=== PATIENT | male | born 1970 | race Caucasian/White ===

== ENCOUNTER 2021-07-11 19:25 | Emergency (ER) | payer OTHER, SELFPAY ==
--- NOTE | ~2021-07-11 | CT_ITS ---
EXAMINATION: CT ABDOMEN AND PELVIS WITHOUT CONTRAST CLINICAL INFORMATION: Left flank pain. Question ureteropelvic junction stone COMPARISON: 11/18/2013 TECHNIQUE: Multidetector volumetric imaging was performed from the lung bases through the pubic symphysis. Sagittal and coronal reformatted images were obtained on the technologist workstation. This CT examination was performed using dose optimization techniques as appropriate, variously including the following: *Automated exposure control *Adjustment of mA and/or kV according to patient size (this includes techniques or standardized protocols for targeted exams where dose is matched to indication/reason for exam; i.e. extremities or head) *Use of iterative reconstruction technique DL [id number] FINDINGS: The lack of intravenous contrast limits evaluation of the solid visceral organs including the liver, spleen, pancreas, and kidneys. LUNG BASES: The visualized lung bases are unremarkable. LIVER, GALLBLADDER, AND BILIARY TREE: Limited non-contrast evaluation is normal. No gross focal hepatic lesion. Normal liver size and contour. No gross biliary ductal dilation. Dependent gallstones. No gallbladder wall thickening or pericholecystic fluid. No biliary ductal dilatation. PANCREAS: Mild pancreatic atrophy. SPLEEN: Limited non-contrast evaluation is normal. ADRENAL GLANDS: Normal; no adrenal mass. KIDNEYS AND URETERS: Limited non-contrast evaluation is normal. No hydronephrosis, hydroureter, or calculi seen. No perinephric stranding. GASTROINTESTINAL TRACT: Small bowel and colon are non-dilated. No bowel wall thickening. Diffuse diverticulosis. No pericolonic inflammatory changes to suggest colitis or diverticulitis. ABDOMINAL WALL: No hernia seen. LYMPH NODES: No pathologically enlarged lymph nodes in the abdomen or pelvis. VASCULAR: Normal caliber abdominal aorta. BLADDER: No radiopaque urolithiasis. PELVIC VISCERA: Unremarkable. OSSEOUS STRUCTURES: No acute or suspicious osseous abnormalities. Severe osteoarthritis of the bilateral hips. Severe lower lumbar facet arthropathy. CT/CT abdomen pelvis wo con IMPRESSION: No acute CT findings. No etiology for left flank pain identified
[2021-07-11 20:51] VITALS: BP 119/74; PULSE 69; RESP 18; TEMP 36.9; O2SAT 98; BMI 34.2
[2021-07-11 21:09] LABS: Appearance Urine CLEAR; Color Urine YELLOW; Glucose Urine UA NEG (NEG); Leukocyte Esterase Urine TRACE (NEG); Nitrite Urine NEG (NEG); Specific Gravity - Urine 1.025 (1.005-1.025); UACC Culture Trigger YES; Urine Blood NEG (NEG); Urine Ketones NEG (NEG); Urine Protein NEG (NEG-TRACE)
[2021-07-11 21:20] LABS: Bacteria Urine 1+ /LPF; Squamous Epithelial Cell Urine 1+ /LPF; UACC CULT YES
--- NOTE | 2021-07-11 21:41 | ED.ABDPAIN ---
HPI - Abdominal Pain General Chief Complaint: Abdominal Pain Stated Complaint: Flank pain Time Seen by Provider: 07/11/21 21:41 Source: patient Mode of arrival: ambulatory Limitations: no limitations History of Present Illness HPI narrative: Patient been complaining of left flank pain for last 3 days without any dysuria or hematuria no frequency had some chills and subjective fever no history of kidney stone in the past no abdominal pain , patient feels burning sensation on the left flank area Related Data Previous Rx's Medication Instructions Recorded ciprofloxacin HCl 500 mg tablet 500 mg PO BID #14 tab 07/11/21 (Cipro) Allergies Allergy/AdvReac Type Severity Reaction Status Date / Time No Known Allergies Allergy Verified 07/11/21 20:51 Review of Systems Review of Systems Yes all other systems are reviewed and are negative Physical Exam Vital Signs: Vital Signs: Last Vital Signs Temp 98.4 F 07/11/21 20:51 Pulse 69 07/11/21 20:51 Resp 18 07/11/21 20:51 BP 119/74 07/11/21 20:51 Pulse Ox 98 07/11/21 20:51 Body Mass Index 34.2 Appearance: Alert. Oriented X3. No acute distress. Eyes: No pallor or icterus ENT: Pharynx normal. Oral Mucosa moist Neck: Normal inspection. Neck supple. CVS: Normal heart rate and rhythm. Pulses normal. Respiratory: No respiratory distress. Equal air entry bilateral, no wheezing/rales/rhonchi Abdomen: Soft and nontender. Bowel sounds are present, no mass palpable, mild left CVA tenderness Skin: Skin warm and dry. Normal skin color. Normal skin turgor. Extremities: No lower extremity edema. No calf tenderness Neuro: Oriented X 3. MDM - Abdominal Pain MDM Narrative Medical decision making narrative: Patient left flank pain CT scan negative for any kidney stone showed only mild UTI will discharge patient home on Cipro Lab Data Attestation: I reviewed the patient's lab results. Labs: Lab Results 07/11/21 Range/Units 20:58 Urine Color YELLOW Urine Appearance CLEAR Urine pH 6.0 (5.0-8.0) Ur Specific [place] 1.025 (1.005-1.025) Urine Protein NEG (NEG-TRACE) MG/DL Urine Glucose (UA) NEG (NEG) MG/DL Urine Ketones NEG (NEG) MG/DL Urine Blood NEG (NEG) Urine Nitrite NEG (NEG) Ur Leukocyte Esterase TRACE H (NEG) Urine RBC 1-4 (0) /HPF Urine WBC 5-9 H (0-4) /HPF Ur Squamous Epith Cells 1+ /LPF Urine Bacteria 1+ /LPF Discharge Plan Discharge Clinical Impression: UTI (urinary tract infection) Qualifiers: Urinary tract infection type: acute cystitis Hematuria presence: without hematuria Qualified Code(s): N30.00 - Acute cystitis without hematuria Patient Disposition: Home, Self-Care Instructions: Urinary Tract Infection in Men (ED) Additional Instructions: Drink plenty of fluids Take antibiotic as prescribed Follow-up with your PCP if not better Prescriptions: New ciprofloxacin HCl [Cipro] 500 mg tablet 500 mg PO BID Qty: 14 RF: 0 PMFSH Social History Social History Advance Directives: No Advance Directives Information Provided: Yes
[2021-07-11] MEDS: levoFLOXacin 500 MG TABLET PO (22:43)
[2021-07-11 23:22] VITALS: BP 144/89; PULSE 53; RESP 17; TEMP 36.6; O2SAT 97
== END 2021-07-11 23:25 | disposition home or self-care (01) ==
PROVIDERS: Emergency Provider Internal Medicine
DX: N30.00 Acute cystitis without hematuria (principal); R10.9 Unspecified abdominal pain; Z79.899 Other long term (current) drug therapy
CPT/HCPCS: 74176; 81001; 87086; 99284

== ENCOUNTER 2022-06-11 22:21 | Emergency (ER) | payer OTHER, SELFPAY ==
--- NOTE | ~2022-06-11 | US_ITS ---
EXAMINATION: US SCROTUM CLINICAL INFORMATION: Pain and swelling. COMPARISON: None TECHNIQUE: A sonogram of the scrotum was performed assessing amaya-scale appearance and color Doppler flow. Spectral Doppler analysis of the arterial and venous flow were performed in the testes bilaterally. FINDINGS: RIGHT: Right testicle measures 4.3 x 2.5 x 2.9 cm, volume 16.7 mL. No focal testicular parenchymal lesions are visualized. Spectral Doppler analysis of the arterial and venous flow is normal in the right testis. Right epididymal head is normal in size. No right hydrocele or varicocele is seen. Right epididymal Doppler flow is normal. LEFT: Left testicle measures 4.2 x 2.6 x 2.8 cm, volume 16.1 mL. No focal testicular parenchymal lesions are visualized. Spectral Doppler analysis of the arterial and venous flow is normal in the left testis. Left epididymal head is normal in size. No left hydrocele or varicocele is seen. Left epididymal Doppler flow is normal. Mild left scrotal skin thickening. US/US scrotum doppler IMPRESSION: Normal appearance of the testicles. No torsion or mass.
--- NOTE | ~2022-06-11 | US_ITS ---
EXAMINATION: US SCROTUM CLINICAL INFORMATION: Pain and swelling. COMPARISON: None TECHNIQUE: A sonogram of the scrotum was performed assessing amaya-scale appearance and color Doppler flow. Spectral Doppler analysis of the arterial and venous flow were performed in the testes bilaterally. FINDINGS: RIGHT: Right testicle measures 4.3 x 2.5 x 2.9 cm, volume 16.7 mL. No focal testicular parenchymal lesions are visualized. Spectral Doppler analysis of the arterial and venous flow is normal in the right testis. Right epididymal head is normal in size. No right hydrocele or varicocele is seen. Right epididymal Doppler flow is normal. LEFT: Left testicle measures 4.2 x 2.6 x 2.8 cm, volume 16.1 mL. No focal testicular parenchymal lesions are visualized. Spectral Doppler analysis of the arterial and venous flow is normal in the left testis. Left epididymal head is normal in size. No left hydrocele or varicocele is seen. Left epididymal Doppler flow is normal. Mild left scrotal skin thickening. US/US scrotum IMPRESSION: Normal appearance of the testicles. No torsion or mass.
[2022-06-11 22:27] VITALS: BP 149/79; PULSE 82; RESP 16; TEMP 36.1; O2SAT 99; BMI 34.2
[2022-06-11 22:45] LABS: MANUAL DIFF FLAG NO
[2022-06-11 22:48] LABS: Basophils Absolute Auto 0.1 X10*3/uL (0.0-0.2); Basophils Percent Auto 0.4 % (0-2); Eosinophils Absolute Auto 0.2 X10*3/uL (0.0-0.4); Hematocrit 38.8 % (42.0-52.0); Hemoglobin 12.9 g/dl (14.0-18.0); Imm Gran Abs Auto 0.04 X10*3/uL (0.00-0.03); Imm Gran Pct Auto 0.3 % (0.0-0.4); Mean Corpuscular HGB Conc 33.2 g/dl (31.0-36.0); Mean Corpuscular Hemoglobin 30.3 pg (27.0-33.0); Mean Corpuscular Volume 91.1 fL (80.0-98.0); Mean Platelet Volume 11.3 fL (9.4-12.4); Monocytes Absolute Auto 1.1 X10*3/uL (0.1-1.2); Monocytes Percent Auto 7.5 % (2-11); Neutrophils Absolute Auto 11.1 x10*3/uL (2.0-8.3); Neutrophils Percent Auto 76.8 % (45-73); Platelet Count 217 X10*3/uL (160-400); Red Blood Count 4.26 X10*6/uL (4.60-5.80); Red Cell Distribution Width 14.6 % (11.0-16.0); White Blood Count 14.5 X10*3/uL (4.8-10.8)
[2022-06-11 22:56] LABS: Appearance Urine CLEAR; Color Urine YELLOW; Glucose Urine UA NEG (NEG); Leukocyte Esterase Urine NEG (NEG); Nitrite Urine NEG (NEG); PH 6.5 (5.0-8.0); Specific Gravity - Urine <= 1.005 (1.005-1.025); Urine Blood NEG (NEG); Urine Ketones NEG (NEG); Urine Protein NEG (NEG-TRACE)
[2022-06-11 23:18] LABS: Alanine Aminotransferase 10 U/L (0-40); Albumin Level 4.6 g/dL (3.5-5.0); Alkaline Phosphatase 86 U/L (39-117); Anion Gap 15 (12-20); Aspartate Amino Transferase 18 U/L (5-37); Bilirubin Total 1.6 mg/dL (0.0-1.0); Blood Urea Nitrogen 12 mg/dL (9-16); Calcium 9.2 mg/dL (8.4-10.2); Carbon Dioxide 25 mmol/L (22-29); Chloride 103 mmol/L (96-108); Creatinine Clr Calc Pharmacy 160.6; Estimated Glomerular Filt Rate > 60; Glucose Random 89 mg/dL (60-115); Potassium 3.5 mmol/L (3.3-5.1); Sodium 139 mmol/L (135-145); Total Protein 7.4 g/dL (6.5-8.0)
[2022-06-12] VITALS: BP 146/75; PULSE 76; RESP 18; O2SAT 100
--- NOTE | 2022-06-12 00:28 | ED_ITS ---
HPI - Male Genitourinary General Chief complaint: Urogenital-Male Stated complaint: scrotum Swollen Time Seen by Provider: 06/12/22 00:28 Source: patient Mode of arrival: ambulatory Limitations: no limitations History of Present Illness HPI Narrative: 51 yo male who has a hx of genital warts that he never got treated notes for the past day his testicles are more swollen and red denies trauma/sexual partners. No fevers/vomiting abdominal pain. MD Complaint: testicle swelling Onset (ago): day(s) (1) Duration: constant Location: right testicle and left testicle Severity: mild Quality: dull Relieving factors: none Exacerbating factors: palpation Context: other (thinks due to heat and warts skin might be inflammed) Associated symptoms: Reports denies other symptoms Related Data Previous Rx's Medication Instructions Recorded ciprofloxacin HCl 500 mg tablet 500 mg PO BID #14 tabs 07/11/21 (Cipro) cephalexin 500 mg capsule 500 mg PO TID 7 days #21 caps 06/12/22 clotrimazole 1 % topical ointment 1 appl topical BID 2 weeks #56.7 06/12/22 grams doxycycline monohydrate 100 mg 100 mg PO BID 7 days #14 tabs 06/12/22 tablet Allergies Allergy/AdvReac Type Severity Reaction Status Date / Time No Known Allergies Allergy Verified 07/11/21 20:51 Review of Systems Review of Systems: Constitutional : No Fever, No Chills ENT/Mouth : No sore throat, No Rhinorrhea Eyes: No Eye Pain, No Swelling, No Redness Cardiovascular : No Chest Pain, No SOB Respiratory : No Cough, No Sputum Gastrointestinal : No Nausea, No Vomiting, No Diarrhea, No abdominal Pain Genitourinary : No Dysuria, No Hematuria, no urinary retention, pos scrotal swelling Musculoskeletal : No joint pain, No Myalgias, No Joint Swelling Skin : pos Skin Lesions, positive skin rash Neuro : No Weakness, No Numbness, No Headache Psych : No Anxiety, No Depression Heme/Lymph: No Bruising, No Bleeding,No Lymphadenopathy Endocrine : No Polyuria, No Polydipsia All other systems reviewed and are negative [facility] Past Medical History Attestation statement: The following information was validated with the patient. Medical History Genital warts Social History Social History Alcohol intake: current Alcohol intake frequency: a few times a week Alcohol type: beer Patient Tobacco Use Status: Never used Tobacco Use of substances other than those prescribed or required for medical reasons: Yes Substance Use Type: Marijuana Substance Use Frequency: Weekly Physical Exam Vital Signs: Vital Signs: Last Vital Signs Temp 96.9 F 06/11/22 22:27 Pulse 76 06/12/22 00:00 Resp 18 06/12/22 00:00 BP 146/75 H 06/12/22 00:00 Pulse Ox 100 06/12/22 00:00 O2 Del Method 06/12/22 00:00 BMI result Body Mass Index 34.2 Appearance: Alert. Oriented X3. No acute distress. Eyes: Pupils equal, round and reactive to light. ENT: Pharynx normal. Neck: Normal inspection. Neck supple. CVS: Normal heart rate and rhythm. Pulses normal. Respiratory: No respiratory distress. Breath sounds normal. Abdomen: Soft and nontender. : under scrotum and on scrotum in groin as well fungating papillomas, mild erythema no abscess or fluctuance noted, scrotum has boggy edema noted but no erythema itself not hot touch touch, area is moist Skin: Skin warm and dry. Normal skin color. Normal skin turgor. Extremities: No lower extremity edema. No calf ttp Neuro: Oriented X 3. No motor deficit. No sensory deficit. Course Course Course Narrative: negative US stable for DC - mild WBC count afebrile no crepitus no signs of dee's he is not a diabetic MDM - Male Genitourinary MDM Narrative Medical decision making narrative: 51 yo male with hx of genital warts here with scrotal swelling and redness likely due to moist environment from the warts themselves. Will obtain labs, US and anticipate starting on oral cephalexin/abx, topical anti fungal and mupirocin. Dispo per results and findings. Lab Data Result diagrams: 06/11/22 22:36 06/11/22 22:36 Labs: Lab Results 06/11/22 06/11/22 06/11/22 Range/Units 22:36 22:36 22:38 WBC 14.5 H (4.8-10.8) X10*3/uL RBC 4.26 L (4.60-5.80) X10*6/uL Hgb 12.9 L (14.0-18.0) g/dl Hct 38.8 L (42.0-52.0) % MCV 91.1 (80.0-98.0) fL MCH 30.3 (27.0-33.0) pg MCHC 33.2 (31.0-36.0) g/dl RDW 14.6 (11.0-16.0) % Plt Count 217 (160-400) X10*3/uL MPV 11.3 (9.4-12.4) fL Immature Gran % (Auto) 0.3 (0.0-0.4) % Neut % (Auto) 76.8 H (45-73) % Lymph % (Auto) 14.0 L (20-40) % Jones % (Auto) 7.5 (2-11) % Eos % (Auto) 1.0 (0-4) % Baso % (Auto) 0.4 (0-2) % Lymph # (Auto) 2.0 (1.2-4.9) X10*3/uL Jones # (Auto) 1.1 (0.1-1.2) X10*3/uL Eos # (Auto) 0.2 (0.0-0.4) X10*3/uL Baso # (Auto) 0.1 (0.0-0.2) X10*3/uL Abs Immat Gran (auto) 0.04 H (0.00-0.03) X10*3/uL Absolute Neuts (auto) 11.1 H (2.0-8.3) x10*3/uL Absolute Nucleated RBC 0.000 (0.0-0.012) X10*3/uL Nucleated RBC % (auto) 0.0 (0.0-0.2) /100WBC Sodium 139 (135-145) mmol/L Potassium 3.5 (3.3-5.1) mmol/L Chloride 103 (96-108) mmol/L Carbon Dioxide 25 (22-29) mmol/L Anion Gap 15 (12-20) BUN 12 (9-16) mg/dL Creatinine 0.74 (0.5-1.4) mg/dL Estim Creat Clear Calc 160.6 Estimated GFR > 60 Random Glucose 89 (60-115) mg/dL Calcium 9.2 (8.4-10.2) mg/dL Total Bilirubin 1.6 H (0.0-1.0) mg/dL AST 18 (5-37) U/L ALT 10 (0-40) U/L Alkaline Phosphatase 86 (39-117) U/L Total Protein 7.4 (6.5-8.0) g/dL Albumin 4.6 (3.5-5.0) g/dL Urine Color YELLOW Urine Appearance CLEAR Urine pH 6.5 (5.0-8.0) Ur Specific [place] <= 1.005 (1.005-1.025) Urine Protein NEG (NEG-TRACE) MG/DL Urine Glucose (UA) NEG (NEG) MG/DL Urine Ketones NEG (NEG) MG/DL Urine Blood NEG (NEG) Urine Nitrite NEG (NEG) Ur Leukocyte Esterase NEG (NEG) Discharge Plan Discharge Clinical Impression: Cellulitis of scrotum Patient Disposition: Home, Self-Care Instructions: Cellulitis (ED) Additional Instructions: return to ED for any worsening symptoms or concerns YOU WILL NEED TO SEE A PRIMARY CARE DOCTOR AND EITHER BE MANAGED BY DERMATOLOGY OR THEM FOR YOUR LESIONS FINDINGS: RIGHT: Right testicle measures 4.3 x 2.5 x 2.9 cm, volume 16.7 mL. No focal testicular parenchymal lesions are visualized. Spectral Doppler analysis of the arterial and venous flow is normal in the right testis. Right epididymal head is normal in size. No right hydrocele or varicocele is seen. Right epididymal Doppler flow is normal. LEFT: Left testicle measures 4.2 x 2.6 x 2.8 cm, volume 16.1 mL. No focal testicular parenchymal lesions are visualized. Spectral Doppler analysis of the arterial and venous flow is normal in the left testis. Left epididymal head is normal in size. No left hydrocele or varicocele is seen. Left epididymal Doppler flow is normal. Mild left scrotal skin thickening. US/US scrotum doppler IMPRESSION: Normal appearance of the testicles. No torsion or mass. Prescriptions: New cephalexin 500 mg capsule 500 mg PO TID 7 Days Qty: 21 0RF doxycycline monohydrate 100 mg tablet 100 mg PO BID 7 Days Qty: 14 0RF clotrimazole 1 % ointment 1 appl topical BID 14 Days Qty: 56.7 0RF No Action ciprofloxacin HCl [Cipro] 500 mg tablet 500 mg PO BID Qty: 14 0RF Stand Alone Forms: Work/School Release
[2022-06-12] MEDS: cephALEXin 500 MG CAPSULE PO (01:39)
--- NOTE | 2022-06-12 01:40 | PC.NURSE ---
pt returned from u/s, medicated per provider order.
== END 2022-06-12 02:34 | disposition home or self-care (01) ==
PROVIDERS: Emergency Provider Emergency Medicine
DX: N49.2 Inflammatory disorders of scrotum (principal); N50.82 Scrotal pain
CPT/HCPCS: 36415; 76870; 80053; 81003; 85025; 93975; 99284

== ENCOUNTER 2022-11-26 14:55 | Emergency (ER) | payer OTHER, SELFPAY ==
--- NOTE | ~2022-11-26 | CT_ITS ---
EXAMINATION: CT ABDOMEN AND PELVIS WITHOUT CONTRAST CLINICAL INFORMATION: Left-sided flank pain COMPARISON: CT abdomen pelvis 07/11/2021 TECHNIQUE: Multidetector volumetric imaging was performed from the superior aspect of the liver through the pubic symphysis. Sagittal and coronal reformatted images were obtained on the technologist's workstation. This CT examination was performed using dose optimization techniques as appropriate, variously including the following: *Automated exposure control *Adjustment of mA and/or kV according to patient size (this includes techniques or standardized protocols for targeted exams where dose is matched to indication/reason for exam; i.e. extremities or head) *Use of iterative reconstruction technique DLP: 943 mGy-cm FINDINGS: LUNG BASES: The visualized lung bases are unremarkable. LIVER, GALLBLADDER, AND BILIARY TREE: The liver is normal in size, shape, and attenuation. No focal hepatic lesion or biliary ductal dilatation is present. The gallbladder contains multiple large gallstones, with the largest measuring 2 cm. Gallbladder is otherwise unremarkable with no evidence of gallbladder wall thickening, or obvious pericholecystic inflammatory changes. PANCREAS: Unremarkable. SPLEEN: Unremarkable. ADRENAL GLANDS: Unremarkable. KIDNEYS AND URETERS: The kidneys are normal in size, shape, and attenuation. No hydronephrosis, hydroureter, or calculi seen. No perinephric stranding. BLADDER: Unremarkable. GASTROINTESTINAL TRACT: The small and large bowel are unremarkable aside from colonic diverticula without diverticulitis. The appendix is unremarkable. ABDOMINAL WALL: No significant hernia is appreciated. Tiny periumbilical hernia contains only fat. LYMPH NODES: No retroperitoneal lymphadenopathy. VASCULAR: Unremarkable. PELVIC VISCERA: The prostate and seminal vesicles are unremarkable. OSSEOUS STRUCTURES: Mild degenerative changes present throughout the spine. No bony destructive lesions CT/CT abdomen pelvis wo IV con IMPRESSION: 1. A cause for the patient's left-sided flank pain has not been found. 2. Incidental note made of cholelithiasis without cholecystitis, colonic diverticulosis without diverticulitis and degenerative changes in the spine. Fleischner guidelines were followed.
[2022-11-26 15:37] VITALS: BP 143/79; PULSE 70; RESP 18; TEMP 36.4; O2SAT 99; BMI 33.0
--- NOTE | 2022-11-26 15:37 | ED_ITS ---
HPI - Abdominal Pain General Chief Complaint: Urogenital-Male <JIM Rosario - Last Filed: 11/26/22 15:40> Stated Complaint: L kidney pain <JIM Rosario - Last Filed: 11/26/22 15:40> Time Seen by Provider: 11/26/22 19:19 <JIM Rosario - Last Filed: 11/26/22 15:40> Source: patient <JIM Quintana - Last Filed: 11/26/22 21:31> Mode of arrival: ambulatory <JIM Quintana - Last Filed: 11/26/22 21:31> Limitations: no limitations <JIM Quintana Last Filed: 11/26/22 21:31> History of Present Illness HPI narrative: This is a 52-year-old male no significant medical history presenting with left-sided flank pain for the past 2-3 days denies trauma to the area. Patient tells me he feels a soreness to his left flank, does not radiate anywhere else, he tells me he feels like at the bruise. Patient tells me certain movements and palpation make pain worse. No history of kidney stones or pyelonephritis. He tells me last time he had something like this before he had an uncomplicated urinary tract infection. Patient denies nausea, vomiting, abdominal pain, UTI symptoms, chest pain, shortness of breath, headache, vision changes, dizziness. <JIM Quintana - Last Filed: 11/26/22 21:31> Related Data Home Medications: Previous Rx's Medication Instructions Recorded ciprofloxacin HCl 500 mg tablet 500 mg PO BID #14 tabs 07/11/21 (Cipro) cephalexin 500 mg capsule 500 mg PO TID 7 days #21 caps 06/12/22 clotrimazole 1 % topical ointment 1 appl topical BID 2 weeks #56.7 06/12/22 grams doxycycline monohydrate 100 mg 100 mg PO BID 7 days #14 tabs 06/12/22 tablet cyclobenzaprine 10 mg tablet 10 mg PO BEDTIME PRN muscle spasm 11/26/22 #7 tabs ketorolac 10 mg tablet 10 mg PO TID PRN pain 5 days #15 11/26/22 tabs lidocaine 5 % topical patch 1 patch topical DAILY PRN pain #15 11/26/22 ea <JIM Rosario - Last Filed: 11/26/22 15:40> Allergies/Adverse Reactions: Allergies Allergy/AdvReac Type Severity Reaction Status Date / Time No Known Allergies Allergy Verified 07/11/21 20:51 <JIM Rosario - Last Filed: 11/26/22 15:40> Review of Systems Review of Systems Constitutional : No Weight loss, No Fever, No Chills, No Fatigue, No Malaise ENT/Mouth : No sore throat, No Rhinorrhea Eyes: No Eye Pain, No Swelling, No Redness Cardiovascular : No Chest Pain, No SOB, No Dyspnea on Exertion, No Orthopnea, No Edema, No Palpitations Respiratory : No Cough, No Sputum, No Wheezing Gastrointestinal : No Nausea, No Vomiting, No Diarrhea, No Constipation, No abdominal Pain, No Hematochezia, No Melena Genitourinary : No Dysuria, No Urinary Frequency, No Hematuria, Musculoskeletal : No joint pain, No Myalgias, No Joint Swelling, + left flank pain Skin : No Skin Lesions, No rash Neuro : No Weakness, No Numbness, No Dizziness, No Headache Psych : No Anxiety/Panic, No Depression All other systems reviewed and are negative <JIM Quintana - Last Filed: 11/26/22 21:31> Yes all other systems are reviewed and are negative <JIM Quintana - Last Filed: 11/26/22 21:31> PMFSH Past Medical History Attestation statement: The following information was validated with the patient. <JIM Quintana - Last Filed: 11/26/22 21:31> Source: old records reviewed and nursing notes reviewed <JIM Quintana - Last Filed: 11/26/22 21:31> Medical History: Medical History Genital warts <JIM Rosario - Last Filed: 11/26/22 15:40> Social History Social History: Social History Alcohol intake: current Alcohol intake frequency: a few times a week Alcohol type: beer Patient Tobacco Use Status: Never used Tobacco Substance Use Type: Marijuana Advance Directives: No Advance Directives Information Provided: Yes <JIM Rosario - Last Filed: 11/26/22 15:40> Physical Exam ED Vital Signs: Vital Signs - 24 hr 11/26/22 15:37 11/26/22 20:10 Temperature 97.6 F 98.1 F Pulse Rate 70 63 Respiratory Rate 18 18 Blood Pressure 143/79 H 154/72 H Pulse Oximetry 99 100 Oxygen Delivery Method Room Air Room Air BMI result Body Mass Index 33.0 <JIM Rosario - Last Filed: 11/26/22 15:40> Vital Signs - 24 hr 11/26/22 15:37 11/26/22 20:10 Temperature 97.6 F 98.1 F Pulse Rate 70 63 Respiratory Rate 18 18 Blood Pressure 143/79 H 154/72 H Pulse Oximetry 99 100 Oxygen Delivery Method Room Air Room Air BMI result Body Mass Index 33.0 vss <JIM Quintana - Last Filed: 11/26/22 21:31> Appearance: Alert.? Oriented X3.? No acute distress.? Head: Normocephalic, atraumatic, no step-offs or deformities Eyes: Pupils equal, round and reactive to light.? Neck: Normal inspection.? Neck supple.? CVS: Normal heart rate and rhythm.? Pulses normal.? Respiratory: No respiratory distress.? Breath sounds normal.? Abdomen: Soft and nontender.? Skin: Skin warm and dry.? Normal skin color.? Normal skin turgor.? Extremities: No lower extremity edema.? No calf ttp. 5/5 strength to bilateral upper and lower extremities Back: No midline tenderness, no C-spine tenderness, full range of motion, no CVA tenderness bilaterally + left sided flank pain on palpation. Neuro: Oriented X 3.? No motor deficit.? No sensory deficit. CN 2-12 intact <JIM Quintana - Last Filed: 11/26/22 21:31> Course Course Course Narrative: RME - 52 yo male presenting to the ER for evaluation of intermittent left sided flank pains for the last couple of days. No N/V/D or urinary symptoms. History of similar presentation he states was due to a minor UTI, resolved with PO abx. VSS in triage. Appears well. No CVA tenderness. Will get UA, labs and CT scan for further evaluation. <JIM Rosario Last Filed: 11/26/22 15:40> Reevaluation(s) Reevaluation #1: CBC within normal limits. Chemistry with no acute findings requiring intervention. Patient's bilirubin 1.3 however chronically elevated. UA without infection. Patient reports symptomatic relief, he tells me he is feeling slightly better at this time. Supporting likely musculoskeletal in origin. He tells me on a scale of 1-10 it is not even painful it is just uncomfortable. Educated patient on diagnosis and treatment plan, answered all question, patient verbalizes understanding. At this time patient will be discharged home, advised to return with new or worsening symptoms. Educated on worrisome signs and symptoms and when to return. At this time I feel comfortable discharge home. <JIM Quintana Last Filed: 11/26/22 21:31> Time: 21:29 <JIM Quintana Last Filed: 11/26/22 21:31> Medical Decision Making Medical Decision Making MDM Narrative: 1999 52-year-old male presents with left-sided atraumatic flank pain times 2-3 days, worse with movement palpation. Physical examination with left flank pain to palpation. Concerns for possible muscle spasm in the left flank area, unlikely fracture, dislocation, kidney stone. Will rule out UTI, no signs of acute abdomen, unlikely epidural abscess or cauda equina. Plan at this time is labs, UA <JIM Quintana Last Filed: 11/26/22 21:31> Differential Diagnosis Differential Diagnoses: The differential diagnosis associated with the presentation includes <JIM Quintana Last Filed: 11/26/22 21:31> Concerns for possible muscle spasm in the left flank area, unlikely fracture, dislocation, kidney stone. Will rule out UTI, no signs of acute abdomen, unlikely epidural abscess or cauda equina. <JIM Quintana Last Filed: 11/26/22 21:31> Admission/Observation Consideration of admission/observation: Escalation of care including admission/observation considered <JIM Quintana Filed: 11/26/22 21:31> Lab Data MDM Lab Attestation statement: I reviewed the patient's lab results. <JIM Quintana - Last Filed: 11/26/22 21:31> Result Diagrams: 11/26/22 20:19 11/26/22 20:19 <JIM Rosario - Last Filed: 11/26/22 15:40> Labs: Lab Results 11/26/22 11/26/22 11/26/22 Range/Units 20:06 20:19 20:19 WBC 9.1 (4.8-10.8) X10*3/uL RBC 4.84 (4.60-5.80) X10*6/uL Hgb 14.6 (14.0-18.0) g/dl Hct 44.4 (42.0-52.0) % MCV 91.7 (80.0-98.0) fL MCH 30.2 (27.0-33.0) pg MCHC 32.9 (31.0-36.0) g/dl RDW 14.8 (11.0-16.0) % Plt Count 242 (160-400) X10*3/uL MPV 11.2 (9.4-12.4) fL Immature Gran % (Auto) 0.4 (0.0-0.4) % Neut % (Auto) 69.7 (45-73) % Lymph % (Auto) 20.6 (20-40) % [place] % (Auto) 7.8 (2-11) % Eos % (Auto) 1.1 (0-4) % Baso % (Auto) 0.4 (0-2) % Lymph # (Auto) 1.9 (1.2-4.9) X10*3/uL [place] # (Auto) 0.7 (0.1-1.2) X10*3/uL Eos # (Auto) 0.1 (0.0-0.4) X10*3/uL Baso # (Auto) 0.0 (0.0-0.2) X10*3/uL Abs Immat Gran (auto) 0.04 H (0.00-0.03) X10*3/uL Absolute Neuts (auto) 6.3 (2.0-8.3) x10*3/uL Absolute Nucleated RBC 0.000 (0.0-0.012) X10*3/uL Nucleated RBC % (auto) 0.0 (0.0-0.2) /100WBC Sodium 141 (135-145) mmol/L Potassium 4.1 (3.3-5.1) mmol/L Chloride 103 (96-108) mmol/L Carbon Dioxide 26 (22-29) mmol/L Anion Gap 16 (12-20) Calcium 10.1 D (8.4-10.2) mg/dL Urine Color Yellow Urine Appearance Clear Urine pH 6.0 (5.0-9.0) Ur Specific [place] 1.015 (1.005-1.025) Urine Protein Negative (Neg-Trace) mg/dL Urine Glucose (UA) Negative (Negative) mg/dL Urine Ketones Negative (Negative) mg/dL Urine Blood Negative (Negative) Urine Nitrite Negative (Negative) Ur Leukocyte Esterase Negative (Negative) <JIM Rosario - Last Filed: 11/26/22 15:40> Lab Results 11/26/22 11/26/22 11/26/22 Range/Units 20:06 20:19 20:19 WBC 9.1 (4.8-10.8) X10*3/uL RBC 4.84 (4.60-5.80) X10*6/uL Hgb 14.6 (14.0-18.0) g/dl Hct 44.4 (42.0-52.0) % MCV 91.7 (80.0-98.0) fL MCH 30.2 (27.0-33.0) pg MCHC 32.9 (31.0-36.0) g/dl RDW 14.8 (11.0-16.0) % Plt Count 242 (160-400) X10*3/uL MPV 11.2 (9.4-12.4) fL Immature Gran % (Auto) 0.4 (0.0-0.4) % Neut % (Auto) 69.7 (45-73) % Lymph % (Auto) 20.6 (20-40) % [place] % (Auto) 7.8 (2-11) % Eos % (Auto) 1.1 (0-4) % Baso % (Auto) 0.4 (0-2) % Lymph # (Auto) 1.9 (1.2-4.9) X10*3/uL [place] # (Auto) 0.7 (0.1-1.2) X10*3/uL Eos # (Auto) 0.1 (0.0-0.4) X10*3/uL Baso # (Auto) 0.0 (0.0-0.2) X10*3/uL Abs Immat Gran (auto) 0.04 H (0.00-0.03) X10*3/uL Absolute Neuts (auto) 6.3 (2.0-8.3) x10*3/uL Absolute Nucleated RBC 0.000 (0.0-0.012) X10*3/uL Nucleated RBC % (auto) 0.0 (0.0-0.2) /100WBC Sodium 141 (135-145) mmol/L Potassium 4.1 (3.3-5.1) mmol/L Chloride 103 (96-108) mmol/L Carbon Dioxide 26 (22-29) mmol/L Anion Gap 16 (12-20) Calcium 10.1 D (8.4-10.2) mg/dL Urine Color Yellow Urine Appearance Clear Urine pH 6.0 (5.0-9.0) Ur Specific [place] 1.015 (1.005-1.025) Urine Protein Negative (Neg-Trace) mg/dL Urine Glucose (UA) Negative (Negative) mg/dL Urine Ketones Negative (Negative) mg/dL Urine Blood Negative (Negative) Urine Nitrite Negative (Negative) Ur Leukocyte Esterase Negative (Negative) <JIM Quintana - Last Filed: 11/26/22 21:31> Radiology Impression Discussion of test interpretation with radiology: I have reviewed the radiologist's reading. <JIM Quintana - Last Filed: 11/26/22 21:31> Core Measures AMI core measures followed: Yes <JIM Quintana - Last Filed: 11/26/22 21:31> Measure exclusions: not indicated <JIM Quintana - Last Filed: 11/26/22 21:31> Critical Care Time Critical Care Time Critical Care Time: No <JIM Quintana Last Filed: 11/26/22 21:31> Discharge Plan Discharge Clinical Impression: Left flank pain <JIM Rosario Last Filed: 11/26/22 15:40> Patient Disposition: Home, Self-Care <JIM Rosario Last Filed: 11/26/22 15:40> Instructions: Flank Pain (ED) <JIM Rosario Last Filed: 11/26/22 15:40> Additional Instructions: Take your medications as prescribed. If you were prescribed antibiotics today, it is important that you take your medication to their entirety, do not skip any doses, do not finish them early. Follow-up with your primary care provider this week. Return to the emergency department with new or worsening symptoms. Such as fevers, chills, chest pain, shortness of breath, nausea, vomiting, dizziness, headache, vision changes, lethargy In case of emergency call 911 Toradol has been sent to your pharmacy, you tolerated this well in the department. Please take this as prescribed do not take this with ibuprofen, or other NSAIDs, do not mix this with alcohol. Side effects of this medication including increased risk for bleeding and possible kidney injury. <JIM Rosario Last Filed: 11/26/22 15:40> Prescriptions: New cyclobenzaprine 10 mg tablet 10 mg PO BEDTIME PRN (Reason: muscle spasm) Qty: 7 0RF ketorolac 10 mg tablet 10 mg PO TID PRN (Reason: pain) 5 Days Qty: 15 0RF Rx Instructions: Tolerated IM in the department lidocaine 5 % adhesive patch,medicated 1 patch topical DAILY PRN (Reason: pain) Qty: 15 0RF Rx Instructions: leave on most painful area for up to 12 hrs No Action ciprofloxacin HCl [Cipro] 500 mg tablet 500 mg PO BID Qty: 14 0RF cephalexin 500 mg capsule 500 mg PO TID 7 Days Qty: 21 0RF doxycycline monohydrate 100 mg tablet 100 mg PO BID 7 Days Qty: 14 0RF clotrimazole 1 % ointment 1 appl topical BID 14 Days Qty: 56.7 0RF <JIM Rosario Last Filed: 11/26/22 15:40> Referrals: Physician,None [Primary Care Provider] - 2 days <JIM Rosario - Last Filed: 11/26/22 15:40> Stand Alone Forms: Work/School Release <JIM Rosario - Last Filed: 11/26/22 15:40>
[2022-11-26 20:10] VITALS: BP 154/72; PULSE 63; RESP 18; TEMP 36.7; O2SAT 100
[2022-11-26 20:33] LABS: Appearance Urine Clear; Color Urine Yellow; Glucose Urine UA Negative (Negative); Leukocyte Esterase Urine Negative (Negative); Nitrite Urine Negative (Negative); Specific Gravity - Urine 1.015 (1.005-1.025); Urine Blood Negative (Negative); Urine Ketones Negative (Negative); Urine Protein Negative (Neg-Trace)
[2022-11-26 20:42] LABS: MANUAL DIFF FLAG NO
[2022-11-26 20:44] LABS: Basophils Percent Auto 0.4 % (0-2); Eosinophils Absolute Auto 0.1 X10*3/uL (0.0-0.4); Eosinophils Percent Auto 1.1 % (0-4); Hematocrit 44.4 % (42.0-52.0); Hemoglobin 14.6 g/dl (14.0-18.0); Imm Gran Abs Auto 0.04 X10*3/uL (0.00-0.03); Imm Gran Pct Auto 0.4 % (0.0-0.4); Lymphocytes Absolute Auto 1.9 X10*3/uL (1.2-4.9); Lymphocytes Percent Auto 20.6 % (20-40); Mean Corpuscular HGB Conc 32.9 g/dl (31.0-36.0); Mean Corpuscular Hemoglobin 30.2 pg (27.0-33.0); Mean Corpuscular Volume 91.7 fL (80.0-98.0); Mean Platelet Volume 11.2 fL (9.4-12.4); Monocytes Absolute Auto 0.7 X10*3/uL (0.1-1.2); Monocytes Percent Auto 7.8 % (2-11); Neutrophils Absolute Auto 6.3 x10*3/uL (2.0-8.3); Neutrophils Percent Auto 69.7 % (45-73); Platelet Count 242 X10*3/uL (160-400); Red Blood Count 4.84 X10*6/uL (4.60-5.80); Red Cell Distribution Width 14.8 % (11.0-16.0); White Blood Count 9.1 X10*3/uL (4.8-10.8)
[2022-11-26] MEDS: Ketorolac Tromethamine 15 MG/ML VIAL 30 MG IVPUSH (20:49)
[2022-11-26 21:15] LABS: Anion Gap 16 (12-20); Calcium 10.1 mg/dL (8.4-10.2); Carbon Dioxide 26 mmol/L (22-29); Chloride 103 mmol/L (96-108); Potassium 4.1 mmol/L (3.3-5.1); Sodium 141 mmol/L (135-145)
[2022-11-26 21:25] LABS: Alanine Aminotransferase 14 U/L (0-40); Albumin Level 4.8 g/dL (3.5-5.0); Alkaline Phosphatase 91 U/L (39-117); Aspartate Amino Transferase 19 U/L (5-37); Bilirubin Direct 0.4 mg/dL (0.0-0.5); Bilirubin Total 1.3 mg/dL (0.0-1.0); Blood Urea Nitrogen 11 mg/dL (9-16); Creatinine Clr Calc Pharmacy 149.7; Estimated Glomerular Filt Rate > 60; Glucose Random 82 mg/dL (60-115); Magnesium 1.9 mg/dL (1.6-2.6); Total Protein 7.8 g/dL (6.5-8.0)
[2022-11-26] MEDS: Lidocaine 4 % Patch ADH..PATCH 1 PATCH TRANSDERMA (21:48)
[2022-11-26 21:55] VITALS: BP 125/90; PULSE 52; RESP 18; O2SAT 98
== END 2022-11-26 21:55 | disposition home or self-care (01) ==
PROVIDERS: Physician Assistant; Emergency Provider Emergency Medicine
DX: R10.32 Left lower quadrant pain (principal); Z79.899 Other long term (current) drug therapy
CPT/HCPCS: 36415; 74176; 80048; 80076; 81003; 83735; 85025; 96374; 99284; J1885

== ENCOUNTER 2023-11-10 08:45 | Outpatient (AMB) | payer OTHER, SELFPAY ==
--- NOTE | 2023-11-10 08:51 | MHC.PC.OV ---
Vital Signs 11/10/23 08:52 Height 5 ft 11 in Weight 254 lb 6 oz BMI 35.5 BP 120/72 Blood Pressure Location Lt brachial Position Sitting Pulse 101 H Pulse Source Pulse Oximeter Pulse Oximetry (%) 97 Oxygen Delivery Method Room Air Intake Visit Reasons: est care Intake Note: Patient is a new patient here to establish care for Pain from right hip radiating down leg, back pain . Transferring care from unknown. Medical records have not been requested and have not received. Acid Tank Cleaner Required: No General Medical Practitioner: Not Required per policy Accompanied by: Self / Same As Patient Allergies No Known Allergies Allergy (Verified 11/10/23 10:06) Tobacco use date assessed: 11/10/23 Dental Screening Dental Screen Date: 11/10/23 Did you have a dental visit in the last 12 months?: Yes Did you have a dental problem in the last 6 months where you did not have access to dental care?: No Was dental information given to patient?: Patient has dentist HPI est care HPI Details 53-year-old male presents to the office to establish his care here. He is looking to get a preop clearance for teeth work today. 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 Patient has had the reported condition in the scrotum for more than 2 decades. It causes a lot of discomfort including itching. 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 He has a daughter. Uses marijuana extensively. And drinks alcohol at least 4 times a week. 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 1. Little interest or pleasure in doing things: not at all 2. Feeling down, depressed, or hopeless: not at all 3. Trouble falling or staying asleep, or sleeping too much: not at all 4. Feeling tired or having little energy: not at all 5. Poor appetite or overeating: not at all 6. Feeling bad about yourself - or that you are a failure or have let yourself or your family down: not at all 7. Trouble concentrating on things, such as reading the newspaper or watching television: not at all 8. Moving or speaking so slowly that other people could have noticed. Or the opposite - being so fidgety or restless that you have been moving around a lot more than usual: not at all 9. Thoughts that you would be better off or of hurting yourself in some way: not at all Total score: 0 Depression Screening Interpretation: Negative Depression Screening Done: Yes Source: Developed by Drs. Akbar Plummer, Solange Pollock, Joel Briggs and colleagues, with an educational leonides from [employer] Thrive Questionnaire Date Thrive assessed: 11/10/23 I am a: Patient What is your living situation today?: I have a steady place to live Within the past 12 months, did the food you bought not last and you didn't have the money to get more?: Never true Within the past 12 months, did you worry whether your food would run out before you got money to buy more?: Never true Do you have trouble paying for medicines?: No Do you have trouble getting transportation to medical appointments?: No Do you have trouble paying your heating and electricity bill?: No Do you have trouble taking care of your child, family member or friend?: No Do you have trouble with day-to-day activities such as bathing, preparing meals, shopping, managing finances, etc.?: No Are you currently unemployed and looking for a job?: No Are you interested in more education?: No Currently or been in a relationship where the following occur: no concerns reported AUDIT C Alcohol Use Questionnaire (AUDIT-C) 1. How often do you have a drink containing alcohol?: 2-3 times a week 2. How many drinks containing alcohol do you have on a typical day when you are drinking?: 1 or 2 Total Score: 3 RIK-7 AMB Questionnaire RIK-7 Date RIK - 7 assessed: 11/10/23 Feeling nervous, anxious, or on edge: 0 = Not at all Not being able to stop or control worryin = Not at all Worrying too much about different things: 0 = Not at all Trouble relaxin = Not at all Being so restless that it is hard to sit still: 0 = Not at all Becoming easily annoyed or irritable: 0 = Not at all Feeling afraid as if something awful might happen: 0 = Not at all Total RIK-7 score (0-4 normal; 5-9 mild; 10-14 moderate; 15-21 severe): 0 Source: Developed by Drs. Akbar Plummer, Solange Pollock, Joel Briggs and colleagues, with an educational leonides from [employer]. Physical exam (Primary Care) Vital Signs: Last Vital Signs Pulse 101 H 11/10/23 08:52 BP 120/72 11/10/23 08:52 Pulse Ox 97 11/10/23 08:52 Oxygen Delivery Method Room Air 11/10/23 08:52 BMI result Body Mass Index 35.5 Tobacco/Smoking Status: Tobacco use Status Tobacco use date assessed 11/10/23 11/10/23 08:57 Patient Tobacco Use Status Never used Tobacco 11/10/23 09:05 e-Cigarette/Vaping Use Never Used 11/10/23 09:05 PHQ-9: PHQ-9 Score PHQ-9: Total score 0 11/10/23 08:57 Depression Screening Interpretation: Negative Thrive Assessment: Date of Thrive Assessment Date Thrive assessed 11/10/23 11/10/23 08:57 Currently or been in a relationship where the following occur: no concerns reported Const General: cooperative and healthy appearing Nutritional Appearance: well nourished Orientation/consciousness: patient oriented x3 Limitations: no limitations HENMT Other: Bad oral hygiene Head: Yes normal to inspection Eyes General: appearance normal, both eyes and all related structures Neck Neck: Yes normal visual inspection Chest Chest palpation & inspection: normal palpation of entire chest wall Resp Effort & Inspection: normal respiratory effort Other: Scrotum: Extensive verrucous warts on the scrotum and around the anal canal. Neuro General: patient oriented x3 Assessment and Plan Assessment & Plan (1) Annual physical exam: Code(s): Z00.00 - Encounter for general adult medical examination without abnormal findings Plan: Blood work has been ordered. Based on the results, his preop clearance will be addressed. (2) Genital warts: Code(s): A63.0 - Anogenital (venereal) warts Plan: Patient has very extensive genital warts. Manual or surgical excision will be very challenging and time consuming. Appropriate nursing education consultant asked to be determined. Orders: Orders Basic Metabolic Panel Today Z01.818 - Encounter for other preprocedural examination Lipid Panel Today Z01.818 - Encounter for other preprocedural examination UA and rflx microscopic Today Z01.818 - Encounter for other preprocedural examination Complete Blood Count no Diff Today Z01.818 - Encounter for other preprocedural examination Liver Panel Today Z01.818 - Encounter for other preprocedural examination Thyroid Stimulating Hormone Today Z01.818 - Encounter for other preprocedural examination ECG 12 lead EKG Today Z01.818 - Encounter for other preprocedural examination Coding Level of Care Code New Pt Prev Care 40-64y(80287) Diagnoses Annual physical exam Z00.00 Genital warts A63.0
[2023-11-10 08:52] VITALS: BP 120/72; PULSE 101; O2SAT 97; BMI 35.5
== END 2023-11-10 10:27 | disposition home or self-care (01) ==
PROVIDERS: PCP Internal Medicine; Visit Provider Internal Medicine
DX: Z00.00 Encounter for general adult medical examination without abnormal findings (principal); A63.0 Anogenital (venereal) warts
CPT/HCPCS: 99386

== ENCOUNTER → 2023-11-10 10:14 | Outpatient (REF) | payer OTHER, SELFPAY ==
[2023-11-10 10:35] LABS: Hematocrit 44.1 % (42.0-52.0); Hemoglobin 14.5 g/dl (14.0-18.0); Mean Corpuscular HGB Conc 32.9 g/dl (31.0-36.0); Mean Corpuscular Hemoglobin 30.3 pg (27.0-33.0); Mean Corpuscular Volume 92.3 fL (80.0-98.0); Mean Platelet Volume 10.7 fL (9.4-12.4); Platelet Count 285 X10*3/uL (160-400); Red Blood Count 4.78 X10*6/uL (4.60-5.80); Red Cell Distribution Width 15.4 % (11.0-16.0); White Blood Count 10.7 X10*3/uL (4.8-10.8)
[2023-11-10 11:22] LABS: Alanine Aminotransferase 19 U/L (0-40); Albumin Level 4.5 g/dL (3.5-5.0); Alkaline Phosphatase 93 U/L (39-117); Anion Gap 14 (12-20); Aspartate Amino Transferase 20 U/L (5-37); Bilirubin Direct 0.3 mg/dL (0.0-0.5); Bilirubin Total 0.6 mg/dL (0.0-1.0); Blood Urea Nitrogen 17 mg/dL (9-16); Calcium 9.8 mg/dL (8.4-10.2); Carbon Dioxide 27 mmol/L (22-29); Chloride 103 mmol/L (96-108); Cholesterol 178 mg/dL (<200); Estimated Glomerular Filt Rate > 60; Glucose Random 94 mg/dL (60-115); HDL Cholesterol 62 mg/dL (>40); LDL Cholesterol Calculated 100 mg/dL (<100); Potassium 4.4 mmol/L (3.3-5.1); Sodium 140 mmol/L (135-145); Total Protein 7.9 g/dL (6.5-8.0); Triglycerides 83 mg/dL (<150)
[2023-11-10 11:32] LABS: Thyroid Stimulating Hormone 2.32 uIU/mL (0.32-4.0)
[2023-11-10 13:04] LABS: Appearance Urine Clear; Color Urine Yellow; Glucose Urine UA Negative (Negative); Leukocyte Esterase Urine Negative (Negative); Nitrite Urine Negative (Negative); PH 6.5 (5.0-9.0); Specific Gravity - Urine 1.015 (1.005-1.025); Urine Blood Negative (Negative); Urine Ketones Negative (Negative); Urine Protein Negative (Neg-Trace)
== END ==
LOC: HO.CARD 10:14
PROVIDERS: PCP Internal Medicine; Visit Provider Internal Medicine
DX: Z01.818 Encounter for other preprocedural examination (principal)
CPT/HCPCS: 36415; 80048; 80061; 80076; 81003; 84443; 85027; 93005

== ENCOUNTER → 2023-11-10 10:19 | Outpatient (BNV) | payer OTHER, SELFPAY | PROVIDERS: PCP Internal Medicine; Visit Provider Internal Medicine Cardiovascular Disease | DX: R00.1 Bradycardia, unspecified (principal) | CPT/HCPCS: 93010 ==

== ENCOUNTER 2024-01-26 11:19 | Emergency (ER) | payer OTHER, SELFPAY ==
--- NOTE | 2024-01-26 11:41 | ED.GENADULT ---
HPI - General Adult General Chief complaint: Urogenital-Male Stated complaint: infection Time Seen by Provider: 01/26/24 20:33 Source: patient Mode of arrival: ambulatory History of Present Illness HPI narrative: 53-year-old male with longstanding history of genital warts and states that on occasion he gets an overlying bacterial infection, he had 1 previously and was treated here successfully. States that as yesterday began having similar symptoms of swelling and redness that he has had previously when this has happened but otherwise denies any fevers or chills. Related Data Home Medications Medication Instructions Recorded Confirmed aspirin 81 mg tablet,delayed 81 mg PO DAILY 11/10/23 release (Adult Low Dose Aspirin) Previous Rx's Medication Instructions Recorded cephalexin 500 mg capsule 500 mg PO BID 7 days #14 caps 01/26/24 doxycycline hyclate 100 mg tablet 100 mg PO BID 7 days #14 tabs 01/26/24 Allergies Allergy/AdvReac Type Severity Reaction Status Date / Time No Known Allergies Allergy Verified 11/10/23 10:06 Review of Systems Review of Systems: Pertinent positives and negatives as stated in HPI [facility] Past Medical History Source: nursing notes reviewed Medical History Genital warts Surgical History History of surgery on lower extremity Family History Family History Other Substance use disorder Social History Social History Housing: Apartment Alcohol intake: current Alcohol intake frequency: 0-2 drinks per day Alcohol type: beer Patient Tobacco Use Status: Never used Tobacco e-Cigarette/Vaping Use: Never Used Second Hand Smoke Exposure: No Substance Use Type: Marijuana Advance Directives: No Advance Directives Information Provided: No service: No Current occupational status: 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 Hearing needs: No Vision needs: Yes (reading glasses) Physical Exam ED Vital Signs: Vital Signs - 24 hr 01/26/24 11:42 01/26/24 19:50 Temperature 98.8 F 97.8 F Pulse Rate 84 100 Respiratory Rate 20 18 Blood Pressure 152/75 H 149/92 H Pulse Oximetry 100 100 Oxygen Delivery Method Room Air Room Air BMI result Body Mass Index 32.8 VITAL SIGNS: Reviewed. GENERAL: Well developed, well nourished, in no acute distress. HEAD: Normocephalic/atraumatic EYES: PERRLA, EOMI LUNGS: Normal breath sounds. No adventitious sounds or accessory muscle use. SpO2<100> CARDIOVASCULAR: Regular rate and rhythm without noted murmurs ABDOMEN: Soft, non-tender, non-distended with bowel sounds. : NEUROLOGIC: Alert and oriented x 4. Strength and sensation to light touch were grossly intact x 4. Course Course Course Narrative: RME performed by Susie Herzog PA-C. Patient is a 53 year old assigned male at presenting to the emergency department with scrotal swelling and issues with lesions. Patient states that he was seen here a year ago for something similar. Patient states that he has having significantly worsening symptoms. Detailed physical exam and review of systems are deferred to the manager etl. Labs ordered. Patient placed back in the waiting room pending room availability and results. Medical Decision Making Medical Decision Making [facility] Narrative: 54-year-old male with history and clinical presentation consistent with scrotal cellulitis as an overlying bacterial infection to patient's underlying and extensive dental work. Patient has follow-up and plan with primary care doctor, no evidence to suggest sepsis and on review prior treatment he was successfully treated with doxycycline and cephalexin and will receive initial dose here in the emergency room and then be discharged with the remaining prescription. I reviewed all investigations and hematologic indices demonstrate a leukocytosis with left shift and minimal normocytic anemia without evidence of bleeding and no thrombocytopenia. Inflammatory markers are understandably elevated and chemistries disease are negative for SEVERO or electrolyte derangements. Urinalysis negative for UTI or hematuria. Differential Diagnosis Differential Diagnoses: The differential diagnosis associated with the presentation includes Please see the discussion above Admission/Observation Consideration of admission/observation: Escalation of care including admission/observation considered Please see the discussion above Lab Data [facility] Lab Attestation statement: I reviewed the patient's lab results. Please see the discussion above 01/26/24 12:19 01/26/24 12:19 Labs: Lab Results 01/26/24 01/26/24 Range/Units 12:19 12:24 WBC 14.4 H (4.8-10.8) X10*3/uL RBC 4.45 L (4.60-5.80) X10*6/uL Hgb 13.7 L (14.0-18.0) g/dl Hct 40.6 L (42.0-52.0) % MCV 91.2 (80.0-98.0) fL MCH 30.8 (27.0-33.0) pg MCHC 33.7 (31.0-36.0) g/dl RDW 15.4 (11.0-16.0) % Plt Count 248 (160-400) X10*3/uL MPV 11.1 (9.4-12.4) fL Immature Gran % (Auto) 0.4 (0.0-0.4) % Neut % (Auto) 83.6 H (45-73) % Lymph % (Auto) 8.8 L (20-40) % [place] % (Auto) 6.7 (2-11) % Eos % (Auto) 0.3 (0-4) % Baso % (Auto) 0.2 (0-2) % Lymph # (Auto) 1.3 (1.2-4.9) X10*3/uL [place] # (Auto) 1.0 (0.1-1.2) X10*3/uL Eos # (Auto) 0.1 (0.0-0.4) X10*3/uL Baso # (Auto) 0.0 (0.0-0.2) X10*3/uL Abs Immat Gran (auto) 0.06 H (0.00-0.03) X10*3/uL Absolute Neuts (auto) 12.0 H (2.0-8.3) x10*3/uL Absolute Nucleated RBC 0.000 (0.0-0.012) X10*3/uL Nucleated RBC % (auto) 0.0 (0.0-0.2) /100WBC ESR 12 (0-15) MM/HR Sodium 143 (135-145) mmol/L Potassium 4.1 (3.3-5.1) mmol/L Chloride 106 (96-108) mmol/L Carbon Dioxide 28 (22-29) mmol/L Anion Gap 13 (12-20) BUN 9 (9-16) mg/dL Creatinine 0.73 (0.5-1.4) mg/dL Estim Creat Clear Calc 155.8 Estimated GFR > 60 Random Glucose 93 (60-115) mg/dL Calcium 9.6 (8.4-10.2) mg/dL Magnesium 1.7 (1.6-2.6) mg/dL Total Bilirubin 1.1 H (0.0-1.0) mg/dL AST 16 (5-37) U/L ALT 10 (0-40) U/L Alkaline Phosphatase 91 (39-117) U/L C-Reactive Protein 2.52 H (< or = 0.50) mg/dL Total Protein 7.5 (6.5-8.0) g/dL Albumin 4.3 (3.5-5.0) g/dL Urine Color Yellow Urine Appearance Clear Urine pH 5.5 (5.0-9.0) Ur Specific [place] 1.020 (1.005-1.025) Urine Protein Negative (Neg-Trace) mg/dL Urine Glucose (UA) Negative (Negative) mg/dL Urine Ketones 15 (Negative) mg/dL Urine Blood Negative (Negative) Urine Nitrite Negative (Negative) Ur Leukocyte Esterase Trace H (Negative) Urine RBC 0-2 (0-2) /HPF Urine WBC 0-5 (0-5) /HPF Ur Squamous Epith Cells 0-2 (0-2) /HPF Urine Bacteria None Seen (None Seen) Hyaline Casts 3-5 (0-2) /LPF External Record Review External record reviewed: Outpatient record, Prior outpatient labs and Prior outpatient radiology Critical Care Time Critical Care Time Critical Care Time: Yes Total Critical Care Time: 30 Attestation: I personally attest to this time spent taking care of the patient. Discharge Plan Discharge Clinical Impression: Cellulitis of scrotum, Genital warts Patient Disposition: Home, Self-Care Instructions: Cellulitis (ED), Scrotal Pain (ED) Additional Instructions: 1. Complete the entire course of antibiotics as prescribed. 2. Please keep the scheduled appointment with your primary care doctor but return to this emergency room if you do not have significant improvement in the next 24-48 hours. Prescriptions: New cephalexin 500 mg capsule 500 mg PO BID 7 Days Qty: 14 0RF doxycycline hyclate 100 mg tablet 100 mg PO BID 7 Days Qty: 14 0RF No Action aspirin [Adult Low Dose Aspirin] 81 mg tablet,delayed release (DR/EC) 81 mg PO DAILY
[2024-01-26 11:42] VITALS: BP 152/75; PULSE 84; RESP 20; TEMP 37.1; O2SAT 100; BMI 32.8
[2024-01-26 12:24] LABS: MANUAL DIFF FLAG NO
[2024-01-26 12:27] LABS: Basophils Percent Auto 0.2 % (0-2); Eosinophils Absolute Auto 0.1 X10*3/uL (0.0-0.4); Eosinophils Percent Auto 0.3 % (0-4); Hematocrit 40.6 % (42.0-52.0); Hemoglobin 13.7 g/dl (14.0-18.0); Imm Gran Abs Auto 0.06 X10*3/uL (0.00-0.03); Imm Gran Pct Auto 0.4 % (0.0-0.4); Lymphocytes Absolute Auto 1.3 X10*3/uL (1.2-4.9); Lymphocytes Percent Auto 8.8 % (20-40); Mean Corpuscular HGB Conc 33.7 g/dl (31.0-36.0); Mean Corpuscular Hemoglobin 30.8 pg (27.0-33.0); Mean Corpuscular Volume 91.2 fL (80.0-98.0); Mean Platelet Volume 11.1 fL (9.4-12.4); Monocytes Percent Auto 6.7 % (2-11); Neutrophils Percent Auto 83.6 % (45-73); Platelet Count 248 X10*3/uL (160-400); Red Blood Count 4.45 X10*6/uL (4.60-5.80); Red Cell Distribution Width 15.4 % (11.0-16.0); White Blood Count 14.4 X10*3/uL (4.8-10.8)
[2024-01-26 12:42] LABS: Appearance Urine Clear; Color Urine Yellow; Glucose Urine UA Negative (Negative); Leukocyte Esterase Urine Trace (Negative); Nitrite Urine Negative (Negative); PH 5.5 (5.0-9.0); UMIC TRIGGER UACC YES; Urine Blood Negative (Negative); Urine Ketones 15 mg/dL (Negative); Urine Protein Negative (Neg-Trace)
[2024-01-26 12:44] LABS: Bacteria Urine None Seen (None Seen); RBC Urine 0-2 /HPF (0-2); Squamous Epithelial Cell Urine 0-2 /HPF (0-2); WBC Urine 0-5 /HPF (0-5)
[2024-01-26 12:45] LABS: Alanine Aminotransferase 10 U/L (0-40); Albumin Level 4.3 g/dL (3.5-5.0); Alkaline Phosphatase 91 U/L (39-117); Anion Gap 13 (12-20); Aspartate Amino Transferase 16 U/L (5-37); Bilirubin Total 1.1 mg/dL (0.0-1.0); Blood Urea Nitrogen 9 mg/dL (9-16); C Reactive Protein 2.52 mg/dL (< or = 0.50); Calcium 9.6 mg/dL (8.4-10.2); Carbon Dioxide 28 mmol/L (22-29); Chloride 106 mmol/L (96-108); Creatinine Clr Calc Pharmacy 155.8; Estimated Glomerular Filt Rate > 60; Glucose Random 93 mg/dL (60-115); Magnesium 1.7 mg/dL (1.6-2.6); Potassium 4.1 mmol/L (3.3-5.1); Sodium 143 mmol/L (135-145); Total Protein 7.5 g/dL (6.5-8.0)
[2024-01-26 13:07] LABS: Erythrocyte Sedimentation Rate 12 MM/HR (0-15)
[2024-01-26 19:50] VITALS: BP 149/92; PULSE 100; RESP 18; TEMP 36.6; O2SAT 100
[2024-01-26] MEDS: cephALEXin 500 MG CAPSULE PO (21:47)
[2024-01-26] MEDS: Doxycycline Monohydrate 100 MG CAPSULE PO (21:47)
[2024-01-26 21:50] VITALS: BP 149/92; PULSE 100; RESP 18; TEMP 36.6; O2SAT 100
== END 2024-01-26 21:50 | disposition home or self-care (01) ==
PROVIDERS: Physician Assistant Medical; Emergency Provider Student in an Organized Health Care Education/Training Program
DX: N49.2 Inflammatory disorders of scrotum (principal); A63.0 Anogenital (venereal) warts
CPT/HCPCS: 36415; 80053; 81001; 83735; 85025; 85652; 86140; 99283

== ENCOUNTER 2024-01-28 14:29 | Day surgery (SDC) | payer OTHER, SELFPAY ==
--- NOTE | ~2024-01-28 | CT_ITS ---
EXAMINATION: CT PELVIS WITH CONTRAST CLINICAL INFORMATION: Acute scrotal soft tissue infection COMPARISON: None available. TECHNIQUE: Helical scanning was performed with submillimeter collimation through the pelvis with the use of oral contrast and during bolus intravenous injection of 85 mL of Omnipaque 350 intravenous contrast. Sagittal and coronal multiplanar 2-D reconstructions were obtained. This CT examination was performed using dose optimization techniques as appropriate, variously including the following: *Automated exposure control *Adjustment of mA and/or kV according to patient size (this includes techniques or standardized protocols for targeted exams where dose is matched to indication/reason for exam; i.e. extremities or head) *Use of iterative reconstruction technique DLP: 566 mGy-cm FINDINGS: Only the lower pole the right kidney is included and this appears unremarkable. The distal aorta and iliofemoral vessels appear unremarkable. The iliofemoral veins and visualized portions of the IVC appears normal. Colonic diverticula are present without evidence of diverticulitis. No free pelvic fluid is seen. There is a tiny periumbilical hernia seen containing only fat. No retroperitoneal lymphadenopathy is seen. Degenerative changes are present in the spine along with bilateral hips, right significantly greater than left. No bony destructive lesions are seen. Prominent inguinal lymph nodes are present. The great saphenous veins are incompetent and there are large thigh varices, left greater than right. Of note, there is marked swelling of the scrotum with skin thickening and bilateral probable hydroceles. The skin of the scrotum and peritoneum appears irregularly thickened. It is difficult to ascertain if there is air within the subcutaneous tissues of the scrotum as the scrotal wall abuts the thighs with air trapped in between the skin surfaces. However, I do not think that there is subcutaneous air. There is a separate thick-walled fluid collection that I believe this is in the subcutaneous tissues of the right scrotum, separate from the testes, measuring 6.0 x 3.5 x 7.0 cm (3:70 and 5:60). CT/CT pelvis w IV con IMPRESSION: 1. Marked swelling of the scrotum with skin thickening and bilateral hydroceles. There is a separate thick-walled fluid collection in the subcutaneous tissues of the scrotum on the right, separate from the testes, measuring 6.0 x 3.5 x 7.0 cm. This is consistent with an abscess. 2. No evidence of Randall's gangrene. 3. Incidental note made of colonic diverticulosis, incompetent great saphenous veins with large thigh varices, left greater than right and degenerative changes in the spine and hips, right greater than left.
[2024-01-28 14:50] VITALS: BP 173/106; PULSE 101; RESP 18; TEMP 37.3; O2SAT 98; BMI 33.0
--- NOTE | 2024-01-28 14:51 | ED.SKABFB ---
HPI - Skin/Abscess/Foreign Bdy General Chief complaint: General Medical Stated complaint: Cellulitis of Scrotum Time Seen by Provider: 01/28/24 23:12 History of Present Illness HPI narrative: The patient is a 53-year-old male who has a long history of warts on his scrotum. He has had diffuse worse on his scrotum for many many years. In June of 2022 he developed an infection in the skin of the scrotum that was treated successfully as an outpatient with oral antibiotics. About 4 days ago he started to feel that he was developing another infection in the skin of the scrotum related to his warts. He came to the emergency room 2 days ago and was put on cephalexin and doxycycline. He has been taking these medications but he feels that he has been getting worse. This morning he felt feverish. He says the degree of swelling and discomfort of the scrotum has increased dramatically. He has had sweats and chills today. Here in the emergency room he was found to have a temperature of 100.6 degrees. Related Data Home Medications Medication Instructions Recorded Confirmed aspirin 81 mg tablet,delayed 81 mg PO DAILY 11/10/23 01/29/24 release (Adult Low Dose Aspirin) ibuprofen 800 mg tablet 800 mg PO Q6H 01/29/24 01/29/24 Previous Rx's Medication Instructions Recorded sulfamethoxazole 800 1 tab PO BID 14 days #28 tabs 01/29/24 mg-trimethoprim 160 mg tablet (Bactrim DS) Allergies Allergy/AdvReac Type Severity Reaction Status Date / Time No Known Allergies Allergy Verified 11/10/23 10:06 Review of Systems Review of Systems: Yes all other systems are reviewed and are negative [facility] Past Medical History Medical History (Updated 01/29/24 @ 15:43 by Hieu Navarro MD) Genital warts Surgical History (Updated 01/29/24 @ 13:20 by Pooja Guzmán RN) H/O tooth extraction History of surgery on lower extremity Family History Family History Other Substance use disorder Social History Social History Housing: Apartment Alcohol intake: current Alcohol intake frequency: 0-2 drinks per day Alcohol type: beer Patient Tobacco Use Status: Never used Tobacco e-Cigarette/Vaping Use: Never Used Second Hand Smoke Exposure: No Use of substances other than those prescribed or required for medical reasons: Yes Substance Use Type: Marijuana Are you DNR?: No Advance Directives: No Advance Directives Information Provided: Yes service: No Current occupational status: employed Current occupation: [employer] Cognitive needs: No Hearing needs: No Vision needs: Yes (reading glasses) Physical Exam Vital Signs: Vital Signs: Last Vital Signs Temp 98.3 F 01/29/24 14:55 Pulse 84 01/29/24 15:11 Resp 18 01/29/24 15:11 BP 119/69 01/29/24 15:11 Pulse Ox 96 01/29/24 15:11 O2 Del Method Room Air 01/29/24 14:55 BMI result Body Mass Index 33.0 Const: Other: The patient is awake, alert, pleasant, cooperative. He looks somewhat older than his age and somewhat chronically ill but he does not appear in acute distress. HEENT: Other: Face is symmetrical. The patient has poor dentition. Mucous membranes are moist. Eyes: Other: Pupils are round equal, conjunctivae clear Neck: Other: No JVD Resp: Effort & Inspection: normal respiratory effort Auscultation: clear to auscultation bilaterally Cardio: Rate: regular rate Rhythm: regular rhythm Heart sounds: S1 normal heart sound present and S2 normal heart sound present GI: Other: Abdomen is soft and nontender : Other: The patient has a very swollen and red scrotum. This was primarily on the right side. The right side of the scrotum feels full and edematous. The left side of the scrotum feels considerably softer. The penis is involuted. Skin: Other: Aside from the skin of the scrotum the skin is unremarkable. No rash elsewhere. Neuro: Other: The patient is awake, alert, appropriate, normal mental status, cranial nerves grossly intact, moving all 4 extremities normally with a grossly intact neurological exam. Extrem: Other: No peripheral edema Course Course Course Narrative: This is an RME: Additional HPI, ROS, PE not included below will be deferred to primary provider. This is a 53-year-old male, with history of genital warts, presenting to the emergency department presenting to the emergency department with complaints of worsening scrotal swelling. Was seen 2 days ago and was discharged on doxycycline and Keflex. Plan: Labs, blood culture, lactic acid Medications Administered Discontinued Medications Generic Name Dose Route Start Last Admin Trade Name Yury PRN Reason Stop Dose Admin Acetaminophen 975 mg 01/29/24 14:45 01/29/24 15:10 Acetaminophen 325 Mg Tablet PO 01/29/24 14:46 975 mg ONCE ONE Administration Piperacillin Sod/Tazobactam 100 mls @ 200 mls/hr 01/28/24 23:27 01/29/24 00:26 Sod 4.5 gm/ Sodium Chloride IV 01/28/24 23:56 Infused ONCE ONE Infusion Vancomycin HCl 2,000 mg in 500 mls @ 250 mls/hr 01/28/24 23:28 01/29/24 00:26 Vancomycin/Ns IV 01/29/24 01:27 250 mls/hr ONCE ONE Administration Sodium Chloride 1,000 mls @ 999 mls/hr 01/28/24 23:30 01/29/24 00:51 Ns IV 01/29/24 00:30 Infused .Q1H1M ELADIO Infusion Iohexol 85 ml 01/28/24 23:50 01/28/24 23:51 Iohexol 350 Mg/Ml 100 Ml Infus..Btl IV 01/28/24 23:51 85 ml ONCE ONE Administration Medical Decision Making Medical Decision Making [facility] Narrative: The patient has a long history of warts around his scrotum which seemed to predispose him to scrotal infections. Two years ago he was treated as an outpatient for a scrotal cellulitis. Two days ago he presented with symptoms similar to the episode 2 years ago and he was started on cephalexin and doxycycline and discharged. He returns despite these antibiotics with worsening scrotal swelling and fever. Clinically the patient does [place] [id number] scan shows a right-sided scrotal abscess without obvious signs of Randall gangrene. The patient was treated with Zosyn and vancomycin after obtaining cultures. I discussed the case with the urologist Dr. Larios. The patient will be admitted to the urology service with a plan for surgery tomorrow. Lab Data 01/28/24 15:07 01/28/24 15:07 Labs: Lab Results 01/28/24 Range/Units 15:07 WBC 15.6 H (4.8-10.8) X10*3/uL RBC 4.67 (4.60-5.80) X10*6/uL Hgb 14.1 (14.0-18.0) g/dl Hct 43.3 (42.0-52.0) % MCV 92.7 (80.0-98.0) fL MCH 30.2 (27.0-33.0) pg MCHC 32.6 (31.0-36.0) g/dl RDW 15.1 (11.0-16.0) % Plt Count 240 (160-400) X10*3/uL MPV 11.3 (9.4-12.4) fL Immature Gran % (Auto) 0.4 (0.0-0.4) % Neut % (Auto) 84.6 H (45-73) % Lymph % (Auto) 8.3 L (20-40) % [place] % (Auto) 5.7 (2-11) % Eos % (Auto) 0.7 (0-4) % Baso % (Auto) 0.3 (0-2) % Lymph # (Auto) 1.3 (1.2-4.9) X10*3/uL [place] # (Auto) 0.9 (0.1-1.2) X10*3/uL Eos # (Auto) 0.1 (0.0-0.4) X10*3/uL Baso # (Auto) 0.0 (0.0-0.2) X10*3/uL Abs Immat Gran (auto) 0.06 H (0.00-0.03) X10*3/uL Absolute Neuts (auto) 13.2 H (2.0-8.3) x10*3/uL Absolute Nucleated RBC 0.000 (0.0-0.012) X10*3/uL Nucleated RBC % (auto) 0.0 (0.0-0.2) /100WBC Sodium 140 (135-145) mmol/L Potassium 3.8 (3.3-5.1) mmol/L Chloride 105 (96-108) mmol/L Carbon Dioxide 29 (22-29) mmol/L Anion Gap 10 L (12-20) BUN 7 L (9-16) mg/dL Creatinine 0.83 (0.5-1.4) mg/dL Estim Creat Clear Calc 137.3 Estimated GFR > 60 Random Glucose 104 (60-115) mg/dL Lactic Acid 1.0 (0.5-2.0) mmol/L Calcium 9.6 (8.4-10.2) mg/dL Total Bilirubin 1.6 H (0.0-1.0) mg/dL AST 12 (5-37) U/L ALT 9 (0-40) U/L Alkaline Phosphatase 83 (39-117) U/L Total Protein 7.7 (6.5-8.0) g/dL Albumin 4.2 (3.5-5.0) g/dL Discharge Plan Discharge Clinical Impression: Abscess, Scrotal abscess Patient Disposition: Admitted As Inpatient Interventions: Admission Worksheet (ED) Last Done: 01/29/24 13:02
[2024-01-28 15:14] LABS: MANUAL DIFF FLAG NO
[2024-01-28 15:17] LABS: Basophils Percent Auto 0.3 % (0-2); Eosinophils Absolute Auto 0.1 X10*3/uL (0.0-0.4); Eosinophils Percent Auto 0.7 % (0-4); Hematocrit 43.3 % (42.0-52.0); Hemoglobin 14.1 g/dl (14.0-18.0); Imm Gran Abs Auto 0.06 X10*3/uL (0.00-0.03); Imm Gran Pct Auto 0.4 % (0.0-0.4); Lymphocytes Absolute Auto 1.3 X10*3/uL (1.2-4.9); Lymphocytes Percent Auto 8.3 % (20-40); Mean Corpuscular HGB Conc 32.6 g/dl (31.0-36.0); Mean Corpuscular Hemoglobin 30.2 pg (27.0-33.0); Mean Corpuscular Volume 92.7 fL (80.0-98.0); Mean Platelet Volume 11.3 fL (9.4-12.4); Monocytes Absolute Auto 0.9 X10*3/uL (0.1-1.2); Monocytes Percent Auto 5.7 % (2-11); Neutrophils Absolute Auto 13.2 x10*3/uL (2.0-8.3); Neutrophils Percent Auto 84.6 % (45-73); Platelet Count 240 X10*3/uL (160-400); Red Blood Count 4.67 X10*6/uL (4.60-5.80); Red Cell Distribution Width 15.1 % (11.0-16.0); White Blood Count 15.6 X10*3/uL (4.8-10.8)
[2024-01-28 15:30] LABS: Alanine Aminotransferase 9 U/L (0-40); Albumin Level 4.2 g/dL (3.5-5.0); Alkaline Phosphatase 83 U/L (39-117); Anion Gap 10 (12-20); Aspartate Amino Transferase 12 U/L (5-37); Bilirubin Total 1.6 mg/dL (0.0-1.0); Blood Urea Nitrogen 7 mg/dL (9-16); Calcium 9.6 mg/dL (8.4-10.2); Carbon Dioxide 29 mmol/L (22-29); Chloride 105 mmol/L (96-108); Creatinine Clr Calc Pharmacy 137.3; Estimated Glomerular Filt Rate > 60; Glucose Random 104 mg/dL (60-115); Potassium 3.8 mmol/L (3.3-5.1); Sodium 140 mmol/L (135-145); Total Protein 7.7 g/dL (6.5-8.0)
[2024-01-28 21:15] VITALS: BP 149/72; PULSE 118; RESP 16; TEMP 38.1; O2SAT 99
[2024-01-28 23:30] VITALS: BP 156/84; PULSE 88; RESP 14; TEMP 36.7; O2SAT 97
[2024-01-28] MEDS: 0.9 % Sodium Chloride 1,000 ML 999 ML IV (23:50)
[2024-01-28] MEDS: Piperacillin Sodium/Tazobactam 4.5 GM in 0.9 % Sodium Chloride 100 ML IV (23:50)
[2024-01-28] MEDS: iohexoL 350 MG/ML 100 ML INFUS..BTL 85 ML IV (23:51)
[2024-01-29] VITALS (9 sets, daily range): BP systolic 114–144; BP diastolic 65–88; PULSE 78–91; RESP 15–20; TEMP 36.7–38.1; O2SAT 96–98
[2024-01-29] MEDS: vancomycin/NS 2,000 MG/500 ML PLAST..BAG 250 MG IV (00:26)
--- NOTE | 2024-01-29 07:51 | PC.NURSE ---
vanco continues to infuse, patient reminded to keep arm straight as able
--- NOTE | 2024-01-29 08:47 | P.CNUR_ITS ---
History of Present Illness Consult details Consult date: 01/29/24 Narrative: CC: Right scrotal abscess 53-year-old male Longstanding history of genital warts and perineal area Intermittent bacterial infections Reports 24 hours of swelling and redness to right scrotum associated with pain Denies fevers or chills WBC 15.6 Antibiotics given Imaging performed - CT Marked swelling of the scrotum with skin thickening and bilateral hydroceles. There is a separate thick-walled fluid collection in the subcutaneous tissues of the scrotum on the right, separate from the testes, measuring 6.0 x 3.5 x 7.0 cm. This is consistent with an abscess. Recommend scrotal exploration with abscess drainage in operating room Review of Systems 2 Constitutional: Constitutional: Reports as per HPI and Reports no additional constitutional complaints Cardiovascular: Cardiovascular: Reports as per HPI and Reports no additional cardiovascular complaints Respiratory: Respiratory: Reports as per HPI and Reports no additional respiratory complaints Gastrointestinal: Gastrointestinal: Reports as per HPI and Reports no additional gastrointestinal complaints Genitourinary: Genitourinary: Reports as per HPI Musculoskeletal: Musculoskeletal: Reports no additional musculoskeletal complaints and Reports as per HPI Neurologic: Reports system reviewed and no additional complaints, except as documented and Reports as per HPI PMFSH Past Medical History Medical History Genital warts Family History Family History Other Substance use disorder Surgical History Surgical History History of surgery on lower extremity Social History Social History Housing: Apartment Alcohol intake: current Alcohol intake frequency: 0-2 drinks per day Alcohol type: beer Patient Tobacco Use Status: Never used Tobacco e-Cigarette/Vaping Use: Never Used Second Hand Smoke Exposure: No Substance Use Type: Marijuana Advance Directives: No Advance Directives Information Provided: Yes service: No Current occupational status: employed Current occupation: [employer] Cognitive needs: No Hearing needs: No Vision needs: Yes (reading glasses) Meds Allergies Allergy/AdvReac Type Severity Reaction Status Date / Time No Known Allergies Allergy Verified 11/10/23 10:06 Home Medications Medication Instructions Recorded Confirmed Last Taken Type aspirin 81 mg tablet,delayed 81 mg PO DAILY 11/10/23 Unknown History release (Adult Low Dose Aspirin) chlorhexidine gluconate 0.12 % PO 01/29/24 Unknown History mouthwash ibuprofen 800 mg tablet 800 mg PO Q6H 01/29/24 Unknown History Physical Exam 2 Vital Signs: Vital Signs: Last Vital Signs Temp 100.1 F 01/29/24 06:09 Pulse 88 01/28/24 23:30 Resp 14 01/28/24 23:30 BP 156/84 H 01/28/24 23:30 Pulse Ox 97 01/28/24 23:30 O2 Del Method Room Air 01/28/24 23:30 BMI result Body Mass Index 33.0 Const: General: cooperative, healthy appearing, comfortable and no acute distress Orientation/consciousness: patient oriented x3 HEENT: Face and sinus: Yes normal facial exam Mouth: moist mucous membranes Neck: Neck: Yes normal visual inspection, Yes full ROM and Yes trachea midline Chest: Chest palpation & inspection: normal inspection of the chest Resp: Effort & Inspection: normal respiratory effort, able to speak in complete sentences and no respiratory distress GI: Inspection: Yes normal to inspection Back/Spine/Pelvis: Cervical Spine: normal cervical lordosis Thoracic/Lumbar Spine: thoracic and lumbar spine normal to inspection Skin: General skin exam: no rashes or lesions noted Neuro: General: patient oriented x3, tone normal and moves all extremities Extrem: General: Yes normal to inspection and Yes capillary refill normal Results Labs 01/28/24 15:07 01/28/24 15:07 Labs: Abnormal lab results 01/28/24 Range/Units 15:07 WBC 15.6 H (4.8-10.8) X10*3/uL Neut % (Auto) 84.6 H (45-73) % Lymph % (Auto) 8.3 L (20-40) % Abs Immat Gran (auto) 0.06 H (0.00-0.03) X10*3/uL Absolute Neuts (auto) 13.2 H (2.0-8.3) x10*3/uL Anion Gap 10 L (12-20) BUN 7 L (9-16) mg/dL Total Bilirubin 1.6 H (0.0-1.0) mg/dL Short CBC 01/28/24 Range/Units 15:07 WBC 15.6 H (4.8-10.8) X10*3/uL Hgb 14.1 (14.0-18.0) g/dl Hct 43.3 (42.0-52.0) % Plt Count 240 (160-400) X10*3/uL BMP 01/28/24 15:07 Sodium 140 Potassium 3.8 Chloride 105 Carbon Dioxide 29 BUN 7 L Creatinine 0.83 Calcium 9.6 Liver Function 01/28/24 Range/Units 15:07 Total Bilirubin 1.6 H (0.0-1.0) mg/dL AST 12 (5-37) U/L ALT 9 (0-40) U/L Alkaline Phosphatase 83 (39-117) U/L Albumin 4.2 (3.5-5.0) g/dL All other labs normal. Assessment and Plan (1) Scrotal abscess: Status: Acute Plan Risks, benefits and alternatives to therapy were discussed. These include but are not limited to infection, bleeding, damage to local organs and tissues, need for further interventions. Anesthetic risks regarding cardiac arrhythmia, blood clots, and potential mortality were discussed. The patient understands the typical recovery time and the outpatient nature of the procedure. After consideration of these risks the patient gives full informed consent and they wish to move ahead with the procedure. Scrotal abscess drainage Procedures Date of Service Date of Service: 01/29/24
--- NOTE | 2024-01-29 09:30 | PC.NURSE ---
Alert and oriented, oob ambulating to bathroom independently , denies pain or discomfort when laying on side
--- NOTE | 2024-01-29 09:52 | PHA.MEDREC ---
Pharmacy Consult ? Medication Reconciliation Pharmacy has completed the medication reconciliation with pt, pt reported only taking aspirin and ibuprofen PRN.
--- NOTE | 2024-01-29 13:21 | HO.ANESPROP2 ---
ON LICENSE OF [facility] Active Problems Active Problems: All Active Problems (Updated 01/29/24 @ 13:03 by Viktoria Marquez) Abscess (Acute) Scrotal abscess (Acute) Past Medical History Medical History (Updated 01/29/24 @ 13:03 by Viktoria Marquez) Genital warts Functional capacity: independent ambulation Family History Family History Other Substance use disorder Family history of problems with anesthesia: No Surgical History Surgical History (Updated 01/29/24 @ 13:20 by Pooja Guzmán RN) H/O tooth extraction History of surgery on lower extremity History of Problems with Anesthesia: No Social History Social History Housing: Apartment Alcohol intake: current Alcohol intake frequency: 0-2 drinks per day Alcohol type: beer Patient Tobacco Use Status: Never used Tobacco e-Cigarette/Vaping Use: Never Used Second Hand Smoke Exposure: No Use of substances other than those prescribed or required for medical reasons: Yes Substance Use Type: Marijuana Are you DNR?: No Advance Directives: No Advance Directives Information Provided: Yes service: No Current occupational status: 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 Hearing needs: No Vision needs: Yes (reading glasses) Meds Allergies Allergy/AdvReac Type Severity Reaction Status Date / Time No Known Allergies Allergy Verified 11/10/23 10:06 Home Medications Medication Instructions Recorded Confirmed Last Taken Type aspirin 81 mg tablet,delayed 81 mg PO DAILY 11/10/23 01/29/24 01/26/24 History release (Adult Low Dose Aspirin) ibuprofen 800 mg tablet 800 mg PO Q6H 01/29/24 01/29/24 Unknown History Exam Height,Weight and Vital Signs: Height 6 ft 1 in Weight 113.398 kg Last Vital Signs Temp 98.1 F 01/29/24 13:08 Pulse 87 01/29/24 13:08 Resp 20 01/29/24 13:08 BP 114/71 01/29/24 13:08 Pulse Ox 97 01/29/24 13:08 O2 Del Method Room Air 01/29/24 13:08 Pertinent Lab Results Pertinent Lab Results: Laboratory Tests 01/28/24 15:07 WBC 15.6 H RBC 4.67 Hgb 14.1 Hct 43.3 MCV 92.7 MCH 30.2 MCHC 32.6 RDW 15.1 Plt Count 240 MPV 11.3 Immature Gran % (Auto) 0.4 Neut % (Auto) 84.6 H Lymph % (Auto) 8.3 L [place] % (Auto) 5.7 Eos % (Auto) 0.7 Baso % (Auto) 0.3 Lymph # (Auto) 1.3 [place] # (Auto) 0.9 Eos # (Auto) 0.1 Baso # (Auto) 0.0 Abs Immat Gran (auto) 0.06 H Absolute Neuts (auto) 13.2 H Absolute Nucleated RBC 0.000 Nucleated RBC % (auto) 0.0 Sodium 140 Potassium 3.8 Chloride 105 Carbon Dioxide 29 Anion Gap 10 L BUN 7 L Creatinine 0.83 Estim Creat Clear Calc 137.3 Estimated GFR > 60 Random Glucose 104 Lactic Acid 1.0 Calcium 9.6 Total Bilirubin 1.6 H AST 12 ALT 9 Alkaline Phosphatase 83 Total Protein 7.7 Albumin 4.2 Airway Mallampati Class: I TM Dist: >3cm Neck ROM: Full Loose/Missing/Broken Teeth: Yes (edentulous) Heart: rrr Lungs: cta b/l Assessment and Plan Final Anesthetic Review Family History of Problems with Anesthesia: No History of Problems with Anesthesia: No NPO: Yes ASA Class: II and Emergency Final Preanesthetic Review: No Changes in Pt Med Stat, Meds/Allgs Chart Reviewed, Consent Obtained/Reviewed and Anes Risks/Benef Reviewed Patient Risk: Low Procedure Risk: Low Anesthetic Plan Anesthetic Plan: GA Disposition: Standard PACU
--- NOTE | 2024-01-29 14:01 | MHC.SHP ---
Pre-Procedural Eval Section A - 24 Hr Update-Section A only Date of Service: 01/29/24 The patient is an INPATIENT: No Changes since office visit: No Cold of Flu in the past 2 weeks, No New Medical Problems, No Changes in Medication and No Patient answered all questions The patient has been examined within 24 hours of the surgical procedure. The History & Physical has been completed within 30 days and I have reviewed it.: Yes Section B - Complete if H&P > 30 days Chief Complaint: Cellulitis of Scrotum Allergies: Allergies Allergy/AdvReac Type Severity Reaction Status Date / Time No Known Allergies Allergy Verified 11/10/23 10:06 Plan Diagnosis/Plan: Unchanged (Right scrotal abscess drainage) I have reviewed the history and physical and performed a pertinent physical examination on my patient. No changes have occurred unless specified. Time Spent With Patient Time: Total time managing care of this patient today ____ minutes.
--- NOTE | 2024-01-29 14:49 | W.PM.OPN ---
Operative Note Operative Note Date of Service: 01/29/24 Narrative: PreOperative Diagnosis: Right scrotal abscess Post Operative Diagnosis: Right scrotal abscess Procedure: Scrotal abscess drainage Surgeon: Dr Rodger Larios Anesthesia: LMA Indications for procedure: 6 cm right scrotal abscess on imaging. Presentation with fever, dolor. CT scan with 6 cm right scrotal abscess. Has longstanding significant HPV. This may represent a superinfection. Procedure: After informed consent was verified the patient was brought to the operating room and placed in a supine position. Anesthesia was administered per protocol. The patient was prepped and draped in a sterile fashion. Safety pause time-out was performed. Antibiotics being given. Right scrotum examined. Small draining sinus found. Draining sinus opened using snaps. Purulent material drained. Area further opened and washout performed of scrotal abscess with suction. Clean sponge placed for debridement. Finger debridement used with in wound to break apart induration. Washout performed. 1 in Tammy drain placed within abscess. Edges of abscess reapproximated using interrupted chromic sutures. Drain fixed using nylon. Pathology: Drains: tammy
[2024-01-29] MEDS: Acetaminophen 325 MG TABLET 975 MG PO (15:10)
== END 2024-01-29 15:57 | disposition home or self-care (01) ==
LOC: HO.ED 01-29 13:01 → HO.SSS 01-29 13:03
PROVIDERS: Physician Assistant Medical; Emergency Provider Emergency Medicine; PCP Internal Medicine; Visit Provider Urology
PROC: (CPT 54700; principal; 2024-01-29 14:20)
DX: N49.2 Inflammatory disorders of scrotum (principal); A63.0 Anogenital (venereal) warts; R50.9 Fever, unspecified; Z79.82 Long term (current) use of aspirin; Z79.1 Long term (current) use of non-steroidal anti-inflammatories (NSAID); Z98.890 Other specified postprocedural states
CPT/HCPCS: 54700; 36415; 72193; 80053; 83605; 85025; 87040; 96361; 96374; 99285; J1100; J2250; J2405; J2543; J2704; J2795; J3010; J3370; Q9967

== ENCOUNTER → 2024-01-28 23:07 | Outpatient (BNV) | payer OTHER, SELFPAY | PROVIDERS: Emergency Provider Emergency Medicine; Visit Provider Urology | DX: N49.2 Inflammatory disorders of scrotum (principal) | CPT/HCPCS: 54700; 99284 ==

== ENCOUNTER → 2024-02-03 13:15 | Outpatient (BNVA) | payer OTHER, SELFPAY | PROVIDERS: PCP Internal Medicine; Visit Provider Urology ==

== ENCOUNTER 2024-02-12 09:08 | Outpatient (AMB) | payer OTHER, SELFPAY ==
--- NOTE | 2024-02-12 09:10 | MHC.PC.OV ---
Vital Signs 02/12/24 09:12 Height 6 ft 1 in Weight 237 lb 2 oz BMI 31.3 BP 142/72 H Blood Pressure Location Lt brachial Position Sitting Pulse 86 Pulse Source Pulse Oximeter Pulse Oximetry (%) 98 Oxygen Delivery Method Room Air Intake Visit Reasons: 3mth f/u Intake Note: Patient is here to follow up on Hip pain and back pain . Electroplater Automatic Required: No Regional Trainer: Not Required per policy Accompanied by: Self / Same As Patient Allergies No Known Allergies Allergy (Verified 02/12/24 09:11) Tobacco use date assessed: 02/12/24 Dental Screening Dental Screen Date: 11/10/23 HPI 3mth f/u HPI Details 53-year-old male presents to the office to discuss his chronic medical conditions. Since his last office visit, patient has had infection in the scrotum that needed a drain. He was seen in the emergency room on 2 separate occasions for this. Patient has extensive verrucous warts over the scrotum and inner thighs. The teacher theater arts have not been able to help him with this. 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 Akbar Plummer, Solange Pollock, Joel Briggs and colleagues, with an educational leonides from [employer]. Physical exam (Primary Care) Vital Signs: Last Vital Signs Pulse 86 02/12/24 09:12 BP 142/72 H 02/12/24 09:12 Pulse Ox 98 02/12/24 09:12 Oxygen Delivery Method Room Air 02/12/24 09:12 BMI result Body Mass Index 31.3 Tobacco/Smoking Status: Tobacco use Status Tobacco use date assessed 02/12/24 02/12/24 09:18 Patient Tobacco Use Status Never used Tobacco 02/12/24 09:18 e-Cigarette/Vaping Use Never Used 02/12/24 09:18 Thrive Assessment: Date of Thrive Assessment Date Thrive assessed 11/10/23 02/12/24 09:18 Const General: cooperative and healthy appearing Nutritional Appearance: well nourished Orientation/consciousness: patient oriented x3 Limitations: no limitations HENMT Head: Yes normal to inspection Eyes General: appearance normal, both eyes and all related structures Neck Neck: Yes normal visual inspection Chest Chest palpation & inspection: normal palpation of entire chest wall Resp Effort & Inspection: normal respiratory effort Other: Scrotum: No visible wound. Scrotal skin area appears normal. Verrucous warts present. Neuro General: patient oriented x3 Assessment and Plan Assessment & Plan (1) Scrotal abscess: Code(s): N49.2 - Inflammatory disorders of scrotum Plan: 20 minutes spent discussing this condition with the patient. In addition 15 minutes was spent reviewing patient's records from the emergency room. Imaging and the CT scan were also reviewed. At present, the scrotal skin looks healthy. No additional antibiotics needed. A message has been sent to the urologist to see if patient can be held regarding the warts. Patient also has declined a screening colonoscopy for now. He would like to get his skin condition treated 1st. Coding Level of Care Code Est Pt Level 4 (75370) Diagnoses Scrotal abscess N49.2
[2024-02-12 09:12] VITALS: BP 142/72; PULSE 86; O2SAT 98; BMI 31.3
== END 2024-02-12 10:05 | disposition home or self-care (01) ==
PROVIDERS: PCP Internal Medicine; Visit Provider Internal Medicine
DX: N49.2 Inflammatory disorders of scrotum (principal)
CPT/HCPCS: 99214

== ENCOUNTER 2024-03-03 14:37 | Outpatient (AMB) | payer OTHER, SELFPAY ==
--- NOTE | 2024-03-03 15:36 | MHC.OFFVIS ---
Intake Visit Reasons: 4w scrotal cellulitis Allergies No Known Allergies Allergy (Verified 02/12/24 09:11) Medication List - Last Reconciled 03/03/24 by Rodger Larios MD aspirin (Adult Low Dose Aspirin) 81 mg PO DAILY ibuprofen 800 mg PO Q6H HPI Comments Details: Golden is a pleasant male. He is a patient of . Seen for the following urologic conditions - scrotal abscess - extensive HPV warts Scrotal abscess well healed since incision and drainage Extensive genital warts through posterior aspect of scrotum and anterior perineal area On examination also has rectal warts On discussion with patient he is most bothered by his rectal what is currently Referral to Dr. Cabello for evaluation Once rectal warts were addressed the perineal warts can be treated This would be a staged procedure and will need multiple treatment sessions [facility] Medical History (Updated 03/03/24 @ 15:59 by Rodger Larios MD) History of drainage of abscess Genital warts Surgical History H/O tooth extraction History of surgery on lower extremity Family History Other Substance use disorder Social History Housing: Apartment Alcohol intake: current Alcohol intake frequency: 0-2 drinks per day Alcohol type: beer Patient Tobacco Use Status: Never used Tobacco e-Cigarette/Vaping Use: Never Used Second Hand Smoke Exposure: No Substance Use Type: Marijuana service: No Current occupational status: 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 Hearing needs: No Vision needs: Yes (reading glasses) Review of Systems Const Denies chills and Denies fever(s) Card Reports no additional complaints and Denies syncope Resp Denies cough GI Denies abdominal pain and Denies heartburn Reports as per HPI and Denies change in libido Neuro Denies syncope Psych Denies change in libido Endo Denies change in libido Physical Exam Const General: cooperative, healthy appearing, comfortable and no acute distress Orientation/consciousness: patient oriented x3 HEENT Face and sinus: Yes normal facial exam Mouth: moist mucous membranes Neck Neck: Yes normal visual inspection, Yes full ROM and Yes trachea midline Chest Chest palpation & inspection: normal inspection of the chest Resp Effort & Inspection: normal respiratory effort, able to speak in complete sentences and no respiratory distress GI Inspection: Yes normal to inspection Back/Spine/Pelvis Cervical Spine: normal cervical lordosis Thoracic/Lumbar Spine: thoracic and lumbar spine normal to inspection Skin General skin exam: no rashes or lesions noted Neuro General: patient oriented x3, gait normal, tone normal and moves all extremities Extrem General: Yes normal to inspection and Yes capillary refill normal Assessment & Plan Assessment & Plan (1) Genital warts: Code(s): A63.0 - Anogenital (venereal) warts Category: Medical (2) Anal warts: Code(s): A63.0 - Anogenital (venereal) warts Category: Medical Plan Referral to General surgery Plan for procedure once rectal warts treated Orders: Referrals General Surgery Referral A63.0 - Anogenital (venereal) warts Patient Instructions: Imaging studies, laboratory and physical exam results were discussed and reviewed in detail. No major barriers to patient understanding were identified. An opportunity to ask questions regarding the treatment plan was provided. All questions were answered. The patient expressed understanding and agreement with the above treatment plan. The patient is aware they should contact our office by phone for worsening of their current condition or the appearance of new urologic symptoms. Compliance is encouraged with any medications and followup testing that is ordered. It is a privilege to participate in the urologic care of your patient. If you have any questions or concerns regarding treatment for the above conditions, or other urologic issues, please do not hesitate to contact me. The office telephone contact is [phone]. This note is constructed using voice recognition software. While every effort has been made to ensure accuracy park maintenance technician errors may have been included. Yours sincerely, Dr Rodger Larios MD, [facility] - Urology Providers of Expert, Compassionate Care for the Genitourinary System Coding Level of Care Code Est Pt Level 3 (90164) Diagnoses Genital warts A63.0 Anal warts A63.0
== END 2024-03-03 16:01 | disposition home or self-care (01) ==
PROVIDERS: PCP Internal Medicine; Visit Provider Urology
DX: A63.0 Anogenital (venereal) warts (principal)
CPT/HCPCS: 99213

== ENCOUNTER → 2024-03-03 14:37 | Outpatient (BNVA) | payer OTHER, SELFPAY | PROVIDERS: PCP Internal Medicine; Visit Provider Urology | DX: A63.0 Anogenital (venereal) warts (principal) | CPT/HCPCS: 99212 ==

== ENCOUNTER 2024-03-22 15:13 | Outpatient (AMB) | payer OTHER, SELFPAY ==
[2024-03-22 15:14] VITALS: BP 130/82; PULSE 102; BMI 31.1
--- NOTE | 2024-03-22 15:14 | A.OFFVIS_ITS ---
Vital Signs 03/22/24 15:14 Height 6 ft 1 in Weight 236 lb BMI 31.1 BP 130/82 Blood Pressure Location Rt brachial Position Sitting Pulse 102 H Intake Visit Reasons: anogenital warts Intake Note: This patient presents for an assessment for anogenital warts. Patient c/o: reports occasional bleeding, reports itching. Livestock Farmworker Required: No Accompanied by: Self / Same As Patient Allergies No Known Allergies Allergy (Verified 03/22/24 15:28) Medication List - Last Reconciled 03/22/24 by Alvarez Cabello MD aspirin (Adult Low Dose Aspirin) 81 mg PO DAILY ibuprofen 800 mg PO Q6H HPI HPI anogenital warts: Details: 53-year-old male referred for a perianal wart. He says that he has had this for about 20 years now. He says that he had bounced around different doctors but was not really able to find any resolution to his anal wart. He says he had been diagnosed to have HPV infection. He says that over the years, this anal wart had increased in size. He currently has been having difficulty with hygiene and with pain especially with bowel movements because of the size of the anal lesion. He had been recently seen by Dr. Larios of Urology as well because of large lipomatous lesions in the area of the genitals and this has been increasing in size and has been bulky as well. He says he is healthy otherwise. 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 Hearing needs: No Vision needs: Yes (reading glasses) Review of Systems Const Denies chills and Denies fever(s) Card Denies chest pain, Denies dyspnea and Denies dyspnea on exertion Resp Denies cough, Denies dyspnea and Denies dyspnea on exertion GI Reports hematochezia and Denies change in bowel habits Denies hematuria and Denies difficulty urinating Musc Denies back pain and Denies limited range of motion Neuro Denies focal weakness and Denies convulsions Psych Denies depression and Denies mood swings Physical Exam Vital Signs: Last Vital Signs Pulse 102 H 03/22/24 15:14 BP 130/82 03/22/24 15:14 BMI result Body Mass Index 31.1 Const General: comfortable and no acute distress Orientation/consciousness: patient oriented x3 Neck Neck: Yes no lymphadenopathy Resp Auscultation: clear to auscultation bilaterally Cardio Rhythm: regular rhythm GI Other: Rectal exam shows a large condylomatous mass in the anal orifice, tender to touch, about 3.5 cm. Exam was difficult because of this tenderness. Palpation (GI): Soft to palpation, nontender and no guarding Other: He has very bulky, diffuse condylomatous lesions in his knee him in surrounding his genital area Neuro General: patient oriented x3 Assessment & Plan Assessment & Plan (1) Anal warts: Code(s): A63.0 - Anogenital (venereal) warts Category: Medical Plan: He has a very large condylomatous lesion in the anal opening. Exam is difficult because of his tenderness. I therefore told him it would be best to do an exam under anesthesia and we will see if we can excise this lesion. This may be a staged procedure because of the large size of the mass. Explained the technique of this procedure. I reviewed the risks including but not limited to bleeding, infections, postop pain, injury to the sphincters, recurrence, the need for multiple procedures, inherent risks of anesthesia, as well as the benefits and alternatives. He understands and wants to proceed. He is to continue to see Dr. Larios for the bulky genital condylomatous lesions as well. Coding Level of Care Code New Pt Level 3 (25595) Diagnoses Anal warts A63.0
== END 2024-03-22 15:34 | disposition home or self-care (01) ==
PROVIDERS: PCP Internal Medicine; Visit Provider Surgery
DX: A63.0 Anogenital (venereal) warts (principal)
CPT/HCPCS: 99203

== ENCOUNTER → 2024-03-22 15:13 | Outpatient (BNVA) | payer OTHER, SELFPAY | PROVIDERS: PCP Internal Medicine; Visit Provider Surgery | DX: A63.0 Anogenital (venereal) warts (principal) | CPT/HCPCS: 99202 ==

== ENCOUNTER 2024-04-06 08:23 | Day surgery (SDC) | payer OTHER, SELFPAY ==
[2024-04-02 14:00] VITALS: BMI 31.1
--- NOTE | 2024-04-02 15:01 | P.CONAN_ITS ---
Documented by User: Nerissa Dixon NP 04/02/24 15:02 HPI - Anesthesia Eval Consult details Narrative: 53yo M for Excision Anal Condyloma, EUA s/p abcess I&D 01/2024 with GA-LMA 5 PMFSH Active Problems Active Problems: All Active Problems Genital warts (Acute) Anal warts (Acute) Scrotal abscess (Acute) Past Medical History Medical History History of drainage of abscess Genital warts Family History Family History Other Substance use disorder Family history of problems with anesthesia: No Surgical History Surgical History H/O tooth extraction History of surgery on lower extremity History of Problems with Anesthesia: No Social History Social History Housing: Apartment Alcohol intake: current Alcohol intake frequency: 0-2 drinks per day Alcohol type: beer Patient Tobacco Use Status: Never used Tobacco e-Cigarette/Vaping Use: Never Used Second Hand Smoke Exposure: No Use of substances other than those prescribed or required for medical reasons: Yes Substance Use Type: Marijuana Are you DNR?: No Advance Directives: No Advance Directives Information Provided: Yes service: No Current occupational status: employed Current occupation: [employer] Cognitive needs: No Hearing needs: No Vision needs: Yes (reading glasses) Meds Allergies Allergy/AdvReac Type Severity Reaction Status Date / Time No Known Allergies Allergy Verified 03/22/24 15:28 Home Medications ?Medication ?Instructions ?Recorded ?Confirmed ?Last Taken ?Type aspirin 81 mg tablet,delayed 81 mg PO DAILY 11/10/23 03/22/24 04/05/24 History release (Adult Low Dose Aspirin) ibuprofen 800 mg tablet 800 mg PO Q6H 01/29/24 03/22/24 04/04/24 History Exam Height,Weight and Vital Signs: Height 6 ft 1 in Weight 107.048 kg Narrative Narrative: EKG 2023 Vent. Rate : 057 BPM Atrial Rate : 057 BPM P-R Int : 128 ms QRS Dur : 090 ms QT Int : 426 ms P-R-T Axes : 027 042 051 degrees QTc Int : 414 ms Sinus bradycardia Otherwise normal ECG No previous ECGs available Assessment and Plan Assessment Anesthesia Assessment: Chart Reviewed Final Anesthetic Review Family History of Problems with Anesthesia: No History of Problems with Anesthesia: No Documented by User: Lucía Martinez MD 04/06/24 10:09 [facility] Past Medical History Medical History History of drainage of abscess Genital warts Family History Family History Other Substance use disorder Family history of problems with anesthesia: No Surgical History Surgical History H/O tooth extraction History of surgery on lower extremity History of Problems with Anesthesia: No Social History Social History Housing: Apartment Alcohol intake: current Alcohol intake frequency: 0-2 drinks per day Alcohol type: beer Patient Tobacco Use Status: Never used Tobacco e-Cigarette/Vaping Use: Never Used Second Hand Smoke Exposure: No Use of substances other than those prescribed or required for medical reasons: Yes Substance Use Type: Marijuana Are you DNR?: No Advance Directives: No Advance Directives Information Provided: Yes service: No 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 occupational 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: 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 Hearing needs: No Vision needs: Yes (reading glasses) Meds Allergies Allergy/AdvReac Type Severity Reaction Status Date / Time No Known Allergies Allergy Verified 03/22/24 15:28 Home Medications ?Medication ?Instructions ?Recorded ?Confirmed ?Last Taken ?Type aspirin 81 mg tablet,delayed 81 mg PO DAILY 11/10/23 03/22/24 04/05/24 History release (Adult Low Dose Aspirin) ibuprofen 800 mg tablet 800 mg PO Q6H 01/29/24 03/22/24 04/04/24 History Exam Height,Weight and Vital Signs: Height 6 ft 1 in Weight 107.048 kg Vital Signs Temp Pulse Resp BP Pulse Ox O2 Del Method 04/06/24 08:53 97.0 F 59 16 125/65 100 Room Air Airway Mallampati Class: II TM Dist: >3cm Neck ROM: Full Loose/Missing/Broken Teeth: Yes (Edentulous) Heart: RRR Lungs: CTAB Assessment and Plan Assessment Anesthesia Assessment: Anesthesia Plan Discussed and Chart Reviewed Final Anesthetic Review Family History of Problems with Anesthesia: No History of Problems with Anesthesia: No NPO: Yes ASA Class: II Final Preanesthetic Review: No Changes in Pt Med Stat, Meds/Allgs Chart Reviewed, Consent Obtained/Reviewed and Anes Risks/Benef Reviewed Patient Risk: Intermediate Procedure Risk: Low Assessment/Block/Sedation in SS: Assess/Block/Sedation-SS Anesthetic Plan Anesthetic Plan: GA Disposition: Standard PACU
[2024-04-06 08:53] VITALS: BP 125/65; PULSE 59; RESP 16; TEMP 36.1; O2SAT 100; BMI 32.5
[2024-04-06] MEDS: Lactated Ringers 1,000 ML 100 ML IVCONT (09:06)
--- NOTE | 2024-04-06 09:53 | MHC.SHP ---
Pre-Procedural Eval Section A - 24 Hr Update-Section A only Date of Service: 04/06/24 The patient is an INPATIENT: No Changes since office visit: No Cold of Flu in the past 2 weeks, No New Medical Problems, No Changes in Medication and No Patient answered all questions The patient has been examined within 24 hours of the surgical procedure. The History & Physical has been completed within 30 days and I have reviewed it.: Yes Section B - Complete if H&P > 30 days Chief Complaint: Anogenital (venereal) warts Allergies: Allergies Allergy/AdvReac Type Severity Reaction Status Date / Time No Known Allergies Allergy Verified 03/22/24 15:28 Plan I have reviewed the history and physical and performed a pertinent physical examination on my patient. No changes have occurred unless specified. Time Spent With Patient Time: Total time managing care of this patient today ____ minutes.
--- NOTE | 2024-04-06 11:29 | W.PM.OPN ---
Operative Note Operative Note Date of Service: 04/06/24 Narrative: Preop diagnosis: Bulky perianal condyloma Postop diagnosis: The same Procedure: Exam under anesthesia, excision and cauterization of bulky perianal condyloma Surgeon: Alvarez Cabello MD FINDINGS: Bulky condylomatous lesion, occupying the perianal region including the anal verge and distal anoderm, on the anterior aspect and right lower aspect, almost covering the entire anal orifice; this condylomatous lesion narrows down to smaller pedicles at the distal anoderm and the anal verge as well; significant oozing from this lesions during the excision noted The patient is a 53-year-old male who has a long history of condylomatous lesions on the penis as well as the anal area. He was seen in the office and was noted to have a very bulky condyloma the pt the anal orifice. This was about 4 cm in diameter. Exam could not be done in the office because of his pain and tenderness. I scheduled him therefore for exam and a and excision of the anal condyloma. He understood the technique of the procedure. He has aware of the risks, benefits, and alternatives. He understood that this may be a staged procedure because of the very bulky size He was brought to the operating room. He was placed in prone paradise-knife position under general anesthesia via endotracheal tube. The buttocks were retracted with wide tape laterally. The perianal area was prepped and draped in the usual sterile fashion. A surgical time-out was done The large condyloma was noted and seemed to occlude the entire anal orifice. By retracting this tightly with the fingers, I was able to see that this narrowed down to smaller pedicles in the distal anoderm and the anal verge itself. However, to be able achieve adequate visualization of the pedicles, I had to ?debulk? this large condyloma using electrocautery. There was note of steady oozing as we proceeded to do this. Eventually, by debulking the condyloma, as eventually able to have adequate visualization of the entire anal canal. I used the Alba retractor expose the pedicle of this condyloma. This was originating from the anterior aspect and right lateral aspect of the distal anoderm and the anal verge. With aggressive electrocauterization, I was able to remove most of the condyloma. The residual condyloma was then cauterized to a greatest eschar. This also allowed us to achieve hemostasis. We also had to cauterize the raw perianal skin from where we had removed some of the condyloma at the anterior aspect. I had to apply a [id number] stitch at the anal canal at 1 of the pedicles to achieve good hemostasis. This was done using a [id number] chromic 3-0 stitch We copiously irrigated. I examined the anal canal using the Alba retractor and there were actually no lesions in the anal canal itself. I infiltrated the perianal area with Marcaine 0.5% for postop analgesia I did to observed for hemostasis. We were able to confirm good hemostasis I inserted rolled Gelfoam into the anal canal and position this as well on the anal orifice itself Once hemostasis was confirmem, the procedure was then completed. Estimated blood loss was about 200 cc The patient was extubated without difficulty and transferred to the recovery room with stable vital signs. The patient tolerated procedure well. There were no immediate complications. Initial final counts of sponges
[2024-04-06 11:41] VITALS: BP 152/81; PULSE 72; RESP 18; TEMP 36.3; O2SAT 100
[2024-04-06 11:45] VITALS: BP 149/80; PULSE 68; RESP 16; O2SAT 98
[2024-04-06 11:50] VITALS: BP 149/81; PULSE 54; RESP 16; O2SAT 98
[2024-04-06 11:55] VITALS: BP 144/85; PULSE 52; RESP 16; O2SAT 97
[2024-04-06 12:10] VITALS: BP 131/84; PULSE 55; RESP 16; TEMP 36.1; O2SAT 96
== END 2024-04-06 12:35 | disposition home or self-care (01) ==
PROVIDERS: Pathology Cytopathology; PCP Internal Medicine; Visit Provider Surgery
PROC: (CPT 46924; principal; 2024-04-06 10:50)
DX: A63.0 Anogenital (venereal) warts (principal)
CPT/HCPCS: 46924; 87624; 88305; 88341; 88342; J0330; J1100; J1596; J2250; J2405; J2704; J2795; J3010

== ENCOUNTER → 2024-04-06 08:23 | Outpatient (BNV) | payer OTHER, SELFPAY | PROVIDERS: PCP Internal Medicine; Visit Provider Surgery | DX: A63.0 Anogenital (venereal) warts (principal) | CPT/HCPCS: 46924 ==

== ENCOUNTER 2024-04-14 09:11 | Outpatient (AMB) | payer OTHER, SELFPAY ==
--- NOTE | 2024-04-14 09:12 | MHC.OFFVIS ---
Intake Visit Reasons: s/p EUA, excision anal condyloma Intake Note: This patient presents for a post-op assessment status post excision of anal condyloma. Patient c/o; reports no complaints. 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 He tolerated the procedure well. He says that he feels great considering that we removed a lot of large lesions. He says his pain level is much improved. He He says that his anal area actually feels much better with the lesions removed. 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 There is some small residual condylomatous lesions in the perianal skin Assessment & Plan Assessment & Plan (1) Anal warts: Code(s): A63.0 - Anogenital (venereal) warts Category: Medical Plan: Status post excision and fulguration of large perianal condylomata. Path report is still pending. His excision sites are clean and not infected. He still has some residual very small condylomatous lesions in the perianal skin so I told him that we will have to schedule him for more excision in the future. He feels well overall and says that the excision has helped him a lot with regards to his discomfort in the perianal area. He says that he is also scheduled to have excision and fulguration of large condylomatous lesions on his penis. This is to be done by Dr. Larios of Urology. Coding Level of Care Code Global (06503) Diagnoses Anal warts A63.0
== END 2024-04-14 09:26 | disposition home or self-care (01) ==
PROVIDERS: PCP Internal Medicine; Visit Provider Surgery
DX: A63.0 Anogenital (venereal) warts (principal)
CPT/HCPCS: 99024

== ENCOUNTER → 2024-04-14 09:11 | Outpatient (BNVA) | payer OTHER, SELFPAY | PROVIDERS: PCP Internal Medicine; Visit Provider Surgery | DX: A63.0 Anogenital (venereal) warts (principal) | CPT/HCPCS: 99212 ==

== ENCOUNTER 2024-05-17 09:06 | Outpatient (AMB) | payer OTHER, SELFPAY ==
--- NOTE | 2024-05-17 09:07 | MHC.OFFVIS ---
Vital Signs 05/17/24 09:13 Weight 242 lb Intake Visit Reasons: 1 month s/p EUA, excision anal condyloma Intake Note: This patient presents for one month follow-up status post excision of anal condyloma. Patient c/o; reports no complaints. 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 He has known bulky perianal condyloma and had undergone exam under anesthesia, excision and fulguration of this in the OR last 04/06/2024. I had seen him in the office postoperatively and he has good healing. He does have residual condyloma to us lesions especially in the right side. I had told him that he had to bring him back to the OR to complete excision of the perianal condyloma. He denies any new complaints. He is doing well he says. He says that he has had this for about 20 years now. He says that he had bounced around different doctors but was not really able to find any resolution to his anal wart. He says he had been diagnosed to have HPV infection. He says that over the years, this anal wart had increased in size. He had been having difficulty with hygiene and with pain especially with bowel movements because of the size of the anal lesion prior to excision last month.. He he is also being followed by Dr. Larios of Urology as well because of large lipomatous lesions in the area of the genitals and this has been increasing in size and has been bulky as well. He says he is healthy otherwise. PENDING SALE TO [facility] Medical History (Updated 05/17/24 @ 09:20 by Alvarez Cabello MD) Condyloma acuminatum of anus History of drainage of abscess Genital warts Surgical History H/O tooth extraction History of surgery on lower extremity Family History Other Substance use disorder Social History Housing: Apartment Alcohol intake: current Alcohol intake frequency: 0-2 drinks per day Alcohol type: beer Comment: COUNTS CORRECT Patient Tobacco Use Status: Never used Tobacco e-Cigarette/Vaping Use: Never Used Second Hand Smoke Exposure: No Substance Use Type: Marijuana service: No Current occupational status: employed Current occupation: [employer] Cognitive needs: No Hearing needs: No Vision needs: Yes (reading glasses) Review of Systems Const Denies chills and Denies fever(s) Card Denies chest pain, Denies dyspnea and Denies dyspnea on exertion Resp Denies cough, Denies dyspnea and Denies dyspnea on exertion GI Denies hematochezia and Denies change in bowel habits Denies hematuria and Denies difficulty urinating Musc Denies back pain and Denies limited range of motion Neuro Denies focal weakness and Denies convulsions Psych Denies depression and Denies mood swings Physical Exam Const General: comfortable and no acute distress Orientation/consciousness: patient oriented x3 Neck Neck: Yes no lymphadenopathy Resp Auscultation: clear to auscultation bilaterally Cardio Rhythm: regular rhythm GI Other: Residual large condylomatous lesions in the right perianal area also tender Palpation (GI): Soft to palpation, nontender and no guarding Neuro General: patient oriented x3 Assessment & Plan Assessment & Plan (1) Condyloma acuminatum of anus: Code(s): A63.0 - Anogenital (venereal) warts Category: Medical Plan: He has more residual lesions especially in the right perianal area although this is much smaller. I told him it would be best to proceed with further excision. I reviewed with him the technique of exam under anesthesia and excision of this perianal condyloma. I reviewed the risks including but not limited to bleeding, infections, poor healing, postop pain, as well as the benefits and alternatives He understands says that is still familiar with the procedure. He is given consent. Coding Level of Care Code Est Pt Level 3 (87397) Diagnoses Condyloma acuminatum of anus A63.0
== END 2024-05-17 09:36 | disposition home or self-care (01) ==
PROVIDERS: PCP Internal Medicine; Visit Provider Surgery
DX: A63.0 Anogenital (venereal) warts (principal)
CPT/HCPCS: 99213

== ENCOUNTER → 2024-05-17 09:06 | Outpatient (BNVA) | payer OTHER, SELFPAY | PROVIDERS: PCP Internal Medicine; Visit Provider Surgery | DX: A63.0 Anogenital (venereal) warts (principal) | CPT/HCPCS: 99212 ==

== ENCOUNTER 2024-07-02 09:00 | Day surgery (SDC) | payer OTHER, SELFPAY ==
[2024-06-30 12:12] VITALS: BMI 31.9
--- NOTE | 2024-06-30 13:35 | P.CONAN_ITS ---
Documented by User: Nerissa Dixon NP 06/30/24 13:37 HPI - Anesthesia Eval Consult details Narrative: 53yo M for EUA,Excision anal condyloma s/p same 04/2024 with GA-ETT 7.5 (See anesthesia record... First attempt with MAC intubation = lg amounts of secretions and cords closed. Easy intubation with proview.) PMFSH Active Problems Active Problems: All Active Problems Anal warts (Acute) Scrotal abscess (Acute) Condyloma acuminatum of anus (Acute) Genital warts (Acute) Past Medical History Medical History Condyloma acuminatum of anus History of drainage of abscess Genital warts Family History Family History Other Substance use disorder Family history of problems with anesthesia: No Surgical History Surgical History Hx of excision of mass H/O tooth extraction History of surgery on lower extremity History of Problems with Anesthesia: No Social History Social History Housing: Apartment Alcohol intake: current Alcohol intake frequency: 0-2 drinks per day Alcohol type: beer Comment: COUNTS CORRECT Patient Tobacco Use Status: Former Tobacco user e-Cigarette/Vaping Use: Never Used Second Hand Smoke Exposure: No Substance Use Type: Marijuana Are you DNR?: No Advance Directives: No Advance Directives Information Provided: Yes service: No Current occupational status: 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 Hearing needs: No Vision needs: Yes (reading glasses) Meds Allergies Allergy/AdvReac Type Severity Reaction Status Date / Time No Known Allergies Allergy Verified 05/17/24 09:12 Home Medications ?Medication ?Instructions ?Recorded ?Confirmed ?Last Taken ?Type aspirin 81 mg tablet,delayed 81 mg PO DAILY 11/10/23 06/30/24 07/01/24 History release (Adult Low Dose Aspirin) ibuprofen 800 mg tablet 800 mg PO Q6H 01/29/24 06/30/24 07/01/24 History Exam Height,Weight and Vital Signs: Height 6 ft 1 in Weight 109.769 kg Pertinent Lab Results Pertinent Lab Results: Laboratory Tests 01/28/24 15:07 WBC 15.6 H Hgb 14.1 Hct 43.3 Plt Count 240 Sodium 140 Potassium 3.8 Chloride 105 Carbon Dioxide 29 BUN 7 L Creatinine 0.83 Narrative Narrative: EKG 2023 Vent. Rate : 057 BPM Atrial Rate : 057 BPM P-R Int : 128 ms QRS Dur : 090 ms QT Int : 426 ms P-R-T Axes : 027 042 051 degrees QTc Int : 414 ms Sinus bradycardia Otherwise normal ECG No previous ECGs available Assessment and Plan Assessment Anesthesia Assessment: Chart Reviewed Final Anesthetic Review Family History of Problems with Anesthesia: No History of Problems with Anesthesia: No Documented by User: Lucía Martinez MD 07/02/24 11:05 COUNTS INCLUDE 234 BEDS AT THE [facility] Past Medical History Medical History Condyloma acuminatum of anus History of drainage of abscess Genital warts Family History Family History Other Substance use disorder Family history of problems with anesthesia: No Surgical History Surgical History Hx of excision of mass H/O tooth extraction History of surgery on lower extremity History of Problems with Anesthesia: No Social History Social History Housing: Apartment Alcohol intake: current Alcohol intake frequency: 0-2 drinks per day Alcohol type: beer Comment: COUNTS CORRECT Patient Tobacco Use Status: Former Tobacco user e-Cigarette/Vaping Use: Never Used Second Hand Smoke Exposure: No Substance Use Type: Marijuana Are you DNR?: No Advance Directives: No Advance Directives Information Provided: Yes service: No Current occupational status: 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 Hearing needs: No Vision needs: Yes (reading glasses) Meds Allergies Allergy/AdvReac Type Severity Reaction Status Date / Time No Known Allergies Allergy Verified 05/17/24 09:12 Home Medications ?Medication ?Instructions ?Recorded ?Confirmed ?Last Taken ?Type aspirin 81 mg tablet,delayed 81 mg PO DAILY 11/10/23 06/30/24 07/01/24 History release (Adult Low Dose Aspirin) ibuprofen 800 mg tablet 800 mg PO Q6H 01/29/24 06/30/24 07/01/24 History Exam Height,Weight and Vital Signs: Height 6 ft 1 in Weight 109.769 kg Vital Signs Temp Pulse Resp BP Pulse Ox O2 Del Method 07/02/24 09:30 97.4 F 64 18 132/70 97 Room Air Pertinent Lab Results Pertinent Lab Results: Laboratory Tests 01/28/24 15:07 WBC 15.6 H Hgb 14.1 Hct 43.3 Plt Count 240 Sodium 140 Potassium 3.8 Chloride 105 Carbon Dioxide 29 BUN 7 L Creatinine 0.83 Airway Mallampati Class: II TM Dist: >3cm Neck ROM: Full Loose/Missing/Broken Teeth: Yes (Edentulous) Heart: RRR Lungs: CTAB Assessment and Plan Assessment Anesthesia Assessment: Anesthesia Plan Discussed and Chart Reviewed Final Anesthetic Review Family History of Problems with Anesthesia: No History of Problems with Anesthesia: No NPO: Yes ASA Class: II Final Preanesthetic Review: No Changes in Pt Med Stat, Meds/Allgs Chart Reviewed, Consent Obtained/Reviewed and Anes Risks/Benef Reviewed Patient Risk: Low Procedure Risk: Low Assessment/Block/Sedation in SS: Assess/Block/Sedation-SS Anesthetic Plan Anesthetic Plan: GA Disposition: Standard PACU
[2024-07-02 09:30] VITALS: BP 132/70; PULSE 64; RESP 18; TEMP 36.3; O2SAT 97; BMI 32.2
[2024-07-02] MEDS: Lactated Ringers 1,000 ML 100 ML IVCONT (09:53)
--- NOTE | 2024-07-02 10:52 | P.HPSUR_ITS ---
Pre-Procedural Eval Section A - 24 Hr Update-Section A only Date of Service: 07/02/24 Section B - Complete if H&P > 30 days Chief Complaint: Anogenital (venereal) warts Details of Present Illness: Has known condylomas, previous excision done. Note of residual condyloma was in the right perianal area. Previous biopsy showed AIN 3 Relevant Family History (Specify if Yes): No Relevant Social History: None Present Medications: see Short Stay Collaborative assessment Medical History: No relevant PMH History of Previous Operations: Relevant previous surgery/procedure and date(s) (Previous excision of condyloma) Allergies: Allergies Allergy/AdvReac Type Severity Reaction Status Date / Time No Known Allergies Allergy Verified 05/17/24 09:12 Review of Systems Sugical H&P ROS: Negative: Constitution, Cardiovascular, Respiratory, Ne urological, Psychiatric, Hem-Onc, Allergic/Immunologic, Gastrointestinal, Genitourinary, Musculoskeletal, Integumentary, Endocrine and Eyes/Ears/Nose/Throat Exam Surgical H&P Exam: Normal: Heart, Normal: Lungs and Normal: Abdomen Exam Comment: Condylomatous lesions right perianal area Plan Diagnosis/Plan: Unchanged I have reviewed the history and physical and performed a pertinent physical examination on my patient. No changes have occurred unless specified. Time Spent With Patient Time: Total time managing care of this patient today ____ minutes.
--- NOTE | 2024-07-02 11:59 | W.PM.OPN ---
Operative Note Operative Note Date of Service: 07/02/24 Narrative: Preop diagnosis: Bulky perianal condyloma Postop diagnosis: The same Procedure: Exam under anesthesia, excision and fulguration of bulky perianal condylomatous lesions Surgeon: Alvarez Cabello MD The patient is a 53-year-old male with known bulky anal condylomas. I had excised some of the condylomatous lesions last April,. However he had very bulky lesions and I had explained to him that this would be a staged procedure. He is noted to have a lot of residual condylomas. He understood the technique of exam under anesthesia and repeat excision fulguration of the condylomatous lesions. He was aware of the risks, benefits, and alternatives. His path report had also shown AIN 3 so I told him that he will require close surveillance. He was brought to the operating room. He was placed in prone paradise-knife position under general anesthesia via endotracheal tube. The buttocks were retracted with wide tape laterally. The perianal area was prepped and draped in the usual sterile fashion. A surgical time-out was done. The patient received Cefotan 2 g IV preoperatively I infiltrated the perianal area with lidocaine 1% Examination of the anal orifice revealed bulky condylomatous lesions mostly on the anterior aspect at the anal verge. He had other scattered smaller condylomatous lesions in the surrounding perianal skin. I inserted the Jaime Oneill retractor. I examined the anal canal circumferentially. This condylomatous lesions were limited to the anal verge and this did not extend to the anal canal. He did have some internal hemorrhoids but no other lesions I excised the condylomatous lesions with narrow basis using electrocautery. This was sent as specimen. I then used extensive cauterization to fulguration all the rest of the flatter but bulky condylomatous lesions. This was done extensively into agrees eschar. I also cauterized the other lesions in the perianal skin which were non congruent with the bulky lesions on the anterior anal verge Extensive cauterization of the lesions along with excision was done. It appeared that this of the condylomatous lesions were removed. I used electrocautery as well to achieve hemostasis on the very broad cauterized areas He may require repeat excision and fulguration. I infiltrated the perianal area with Marcaine 0.5% for postop analgesia. I applied a rolled Gelfoam into the anal canal for hemostasis He tolerated procedure well. Estimated blood loss about 25 cc He was extubated without difficulty and transferred to the recovery room with stable vital signs
[2024-07-02 12:09] VITALS: BP 104/80; PULSE 77; RESP 12; TEMP 36.6; O2SAT 100
[2024-07-02 12:14] VITALS: BP 123/75; PULSE 64; RESP 16; O2SAT 98
[2024-07-02 12:19] VITALS: BP 128/75; PULSE 65; RESP 16; O2SAT 99
[2024-07-02 12:24] VITALS: BP 133/76; PULSE 54; RESP 16; O2SAT 99
[2024-07-02 12:39] VITALS: BP 123/70; PULSE 56; RESP 16; TEMP 36.4; O2SAT 99
== END 2024-07-02 13:30 | disposition home or self-care (01) ==
PROVIDERS: PCP Internal Medicine; Visit Provider Surgery
PROC: 0DBQXZZ Excision of Anus, External Approach (ICD-10-PCS; CPT 46924; principal; 2024-07-02 10:40)
DX: A63.0 Anogenital (venereal) warts (principal); K62.82 Dysplasia of anus; Z98.890 Other specified postprocedural states; Z87.891 Personal history of nicotine dependence; Z79.1 Long term (current) use of non-steroidal anti-inflammatories (NSAID); Z79.82 Long term (current) use of aspirin
CPT/HCPCS: 46924; 88305; 88341; 88342; J0131; J1596; J2250; J2405; J2704; J3010

== ENCOUNTER → 2024-07-02 09:00 | Outpatient (BNV) | payer OTHER, SELFPAY | PROVIDERS: PCP Internal Medicine; Visit Provider Surgery | DX: A63.0 Anogenital (venereal) warts (principal) | CPT/HCPCS: 46922 ==

== ENCOUNTER 2024-07-21 11:44 | Outpatient (AMB) | payer OTHER, SELFPAY ==
--- NOTE | 2024-07-21 11:45 | A.OFFVIS_ITS ---
Intake Visit Reasons: s/p EAU Excision Condyloma Intake Note: This patient presents for post-op status post Exam under anesthesia, excision and fulguration of bulky perianal condylomatous lesions. Pt c/o; Rn Angiography Required: No Accompanied by: Self / Same As Patient Allergies No Known Allergies Allergy (Verified 07/21/24 11:46) HPI HPI s/p EAU Excision Condyloma: Details: 53-year-old male here for follow-up after excision of multiple condylomatous lesions. He underwent excision of these lesions and fulguration last 07/02/2024. He tolerated procedure well. He had bulky condylomatous lesions at that time. He denies significant complaints. He says that he feels well overall and denies severe pain. [facility] Medical History Condyloma acuminatum of anus History of drainage of abscess Genital warts Surgical History Hx of surgical procedure (~07/02/24) Hx of excision of mass H/O tooth extraction History of surgery on lower extremity Family History Other Substance use disorder Social History Housing: Apartment Alcohol intake: current Alcohol intake frequency: 0-2 drinks per day Alcohol type: beer Comment: COUNTS CORRECT Patient Tobacco Use Status: Former Tobacco user e-Cigarette/Vaping Use: Never Used Second Hand Smoke Exposure: No Substance Use Type: Marijuana service: No Current occupational status: 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 Hearing needs: No Vision needs: Yes (reading glasses) Review of Systems Const Denies chills and Denies fever(s) Physical Exam Const General: comfortable and no acute distress Resp Effort & Inspection: normal respiratory effort GI Other: Rectal exam shows the excision sites to be well healed, not infected, still with a little bit of redness from the excision sites but no signs of any infection, no residual lesions Assessment & Plan Assessment & Plan (1) Condyloma acuminatum of anus: Code(s): A63.0 - Anogenital (venereal) warts Category: Medical Plan: Status post excision of condylomatous lesions. 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 Current exam does not reveal any residual lesions. I explained to him the above pathology and told him that he is at risk for squamous cell carcinoma which will require treatment with radiation chemotherapy. I explained the sites to him that he will need close monitoring in the office. I will see him again in about a month when the excision sites are well healed so we can recheck her any residual or new lesions. He is comfortable with the plan. Coding Level of Care Code Global (24685) Diagnoses Condyloma acuminatum of anus A63.0
== END 2024-07-21 11:58 | disposition home or self-care (01) ==
PROVIDERS: PCP Internal Medicine; Visit Provider Surgery
DX: A63.0 Anogenital (venereal) warts (principal)
CPT/HCPCS: 99024

== ENCOUNTER → 2024-07-21 11:44 | Outpatient (BNVA) | payer OTHER, SELFPAY | PROVIDERS: PCP Internal Medicine; Visit Provider Surgery | DX: A63.0 Anogenital (venereal) warts (principal) | CPT/HCPCS: 99212 ==

== ENCOUNTER 2024-07-28 10:15 | Outpatient (REF) | payer OTHER, SELFPAY ==
[2024-07-28 12:13] LABS: Hemoglobin 14.3 g/dl (14.0-18.0); Mean Corpuscular HGB Conc 33.3 g/dl (31.0-36.0); Mean Corpuscular Hemoglobin 30.9 pg (27.0-33.0); Mean Corpuscular Volume 92.9 fL (80.0-98.0); Mean Platelet Volume 11.5 fL (9.4-12.4); Platelet Count 252 X10*3/uL (160-400); Red Blood Count 4.63 X10*6/uL (4.60-5.80); Red Cell Distribution Width 15.7 % (11.0-16.0); White Blood Count 7.8 X10*3/uL (4.8-10.8)
[2024-07-28 12:38] LABS: Alanine Aminotransferase 13 U/L (0-40); Albumin Level 4.6 g/dL (3.5-5.0); Alkaline Phosphatase 90 U/L (39-117); Anion Gap 15 (12-20); Aspartate Amino Transferase 17 U/L (5-37); Bilirubin Direct 0.4 mg/dL (0.0-0.5); Bilirubin Total 1.2 mg/dL (0.0-1.0); Blood Urea Nitrogen 17 mg/dL (9-16); Calcium 10.1 mg/dL (8.4-10.2); Carbon Dioxide 31 mmol/L (22-29); Chloride 104 mmol/L (96-108); Cholesterol 174 mg/dL (<200); Estimated Glomerular Filt Rate > 60; Glucose Random 93 mg/dL (60-115); HDL Cholesterol 62 mg/dL (>40); LDL Cholesterol Calculated 100 mg/dL (<100); Potassium 4.7 mmol/L (3.3-5.1); Sodium 145 mmol/L (135-145); Total Protein 7.9 g/dL (6.5-8.0); Triglycerides 62 mg/dL (<150)
[2024-07-28 12:44] LABS: Appearance Urine Clear; Color Urine Yellow; Glucose Urine UA Negative (Negative); Leukocyte Esterase Urine Trace (Negative); Nitrite Urine Negative (Negative); UMIC TRIGGER UA YES; Urine Blood Negative (Negative); Urine Ketones Negative (Negative); Urine Protein Negative (Neg-Trace)
[2024-07-28 12:50] LABS: Bacteria Urine None Seen (None Seen); Hyaline Casts Urine 0-2 /LPF (0-2); RBC Urine 0-2 /HPF (0-2); Squamous Epithelial Cell Urine 0-2 /HPF (0-2); WBC Urine 0-5 /HPF (0-5)
== END 2024-07-28 10:16 | disposition home or self-care (01) ==
LOC: HO.LAB 10:15
PROVIDERS: PCP Internal Medicine; Visit Provider Internal Medicine
DX: A63.0 Anogenital (venereal) warts (principal); S46.911A Strain of unspecified muscle, fascia and tendon at shoulder and upper arm level, right arm, initial encounter; X58.XXXA Exposure to other specified factors, initial encounter; Y93.9 Activity, unspecified; Y92.9 Unspecified place or not applicable; Y99.9 Unspecified external cause status
CPT/HCPCS: 36415; 80048; 80061; 80076; 81001; 85027; 99212

== ENCOUNTER 2024-07-28 10:15 | Outpatient (AMB) | payer OTHER, SELFPAY ==
--- NOTE | 2024-07-28 10:23 | MHC.PC.OV ---
Vital Signs 07/28/24 10:25 Height 6 ft 1 in Weight 235 lb BMI 31.0 BP 110/72 Blood Pressure Location Lt brachial Position Sitting Pulse 58 Pulse Source Pulse Oximeter Pulse Oximetry (%) 99 Oxygen Delivery Method Room Air Intake Visit Reasons: 4 month f/u Intake Note: Patient is here to follow up on bp check. Complaint of right shoulder pain ongoing for a month. Dietetic Technician Registered Required: No Otr Van Cdl Truck Driver: Not Required per policy Accompanied by: Self / Same As Patient Allergies No Known Allergies Allergy (Verified 07/28/24 13:27) Medication List - Last Reconciled 07/28/24 by Dominic Barry MD aspirin (Adult Low Dose Aspirin) 81 mg PO DAILY docusate sodium (Colace) 100 mg PO BID ibuprofen 800 mg PO Q6H oxycodone-acetaminophen 5-325 mg (Percocet) 1 tab PO Q4-6H PRN Tobacco use date assessed: 07/28/24 Dental Screening Dental Screen Date: 11/10/23 HPI 4 month f/u HPI Details 53-year-old male presents to the office to discuss his chronic medical conditions. Since last office visit patient has been following up with a surgeon and urologist for the excision of the lesions on the scrotum and the anal area. He is scheduled to have more excisions done. Patient is complaining of right shoulder pain for the past few weeks. Has been lifting heavy objects at work. Symptoms are worse at night when he is lying down on the right shoulder. [facility] Medical History Condyloma acuminatum of anus History of drainage of abscess Genital warts Surgical History Hx of surgical procedure (~07/02/24) Hx of excision of mass H/O tooth extraction History of surgery on lower extremity Family History Other Substance use disorder Social History Housing: Apartment Alcohol intake: current Alcohol intake frequency: 0-2 drinks per day Alcohol type: beer Comment: COUNTS CORRECT Patient Tobacco Use Status: Former Tobacco user e-Cigarette/Vaping Use: Never Used Second Hand Smoke Exposure: No Substance Use Type: Marijuana service: No Current occupational status: 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 Akbar Plummer, Solange Pollock, Joel Briggs and colleagues, with an educational leonides from [employer]. Physical exam (Primary Care) Vital Signs: Last Vital Signs Pulse 58 07/28/24 10:25 BP 110/72 07/28/24 10:25 Pulse Ox 99 07/28/24 10:25 Oxygen Delivery Method Room Air 07/28/24 10:25 BMI result Body Mass Index 31.0 Tobacco/Smoking Status: Tobacco use Status Tobacco use date assessed 07/28/24 07/28/24 10:32 Patient Tobacco Use Status Former Tobacco user 07/28/24 10:23 e-Cigarette/Vaping Use Never Used 07/28/24 10:23 Thrive Assessment: Date of Thrive Assessment Date Thrive assessed 11/10/23 07/28/24 10:23 Const General: cooperative and healthy appearing Nutritional Appearance: well nourished Orientation/consciousness: patient oriented x3 Limitations: no limitations HENMT Head: Yes normal to inspection Eyes General: appearance normal, both eyes and all related structures Neck Neck: Yes normal visual inspection Chest Chest palpation & inspection: normal palpation of entire chest wall Resp Effort & Inspection: normal respiratory effort Neuro General: patient oriented x3 Extrem Other: Right shoulder: No AC joint tenderness. Full range of motion with minimal discomfort. Assessment and Plan Assessment & Plan (1) Condyloma acuminatum of anus: Code(s): A63.0 - Anogenital (venereal) warts Plan: Continue current management with regular appointments to General surgery and Urology. (2) Right shoulder strain: Code(s): S46.911A - Strain of unspecified muscle, fascia and tendon at shoulder and upper arm level, right arm, initial encounter Plan: Mostly due to over work. Patient was advised to rest the right shoulder. Orders: Orders Basic Metabolic Panel Today A63.0 - Anogenital (venereal) warts Complete Blood Count no Diff Today A63.0 - Anogenital (venereal) warts Lipid Panel Today A63.0 - Anogenital (venereal) warts UA and rflx microscopic Today A63.0 - Anogenital (venereal) warts Liver Panel Today A63.0 - Anogenital (venereal) warts Referrals Cologuard Test Z12.11 - Encounter for screening for malignant neoplasm of colon Coding Level of Care Code Est Pt Level 4 (86298) Complex EM visit Add On G2211 Diagnoses Condyloma acuminatum of anus A63.0 Right shoulder strain S46.918H
[2024-07-28 10:25] VITALS: BP 110/72; PULSE 58; O2SAT 99; BMI 31.0
== END 2024-07-28 11:04 | disposition home or self-care (01) ==
PROVIDERS: PCP Internal Medicine; Visit Provider Internal Medicine
DX: A63.0 Anogenital (venereal) warts (principal); S46.911A Strain of unspecified muscle, fascia and tendon at shoulder and upper arm level, right arm, initial encounter

== ENCOUNTER 2024-08-23 09:32 | Outpatient (AMB) | payer OTHER, SELFPAY ==
--- NOTE | 2024-08-23 09:43 | MHC.OFFVIS ---
Vital Signs 08/23/24 09:50 Height 6 ft 1 in Weight 241 lb BMI 31.8 BP 154/87 H Blood Pressure Location Lt brachial Position Sitting Pulse 79 Intake Visit Reasons: 1 month follow up s/p EAU Excision Condyloma Intake Note: This patient presents for one month follow-up status post EUA Excision Condyloma. 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 He had undergone excision of bulky perianal condylomas last 07/02/2024. His path report had shown superficial invasive squamous cell carcinoma on some of the lesions. I advised him to therefore follow up in the office as it was likely that he will require additional excision He also had some of the condyloma was removed earlier this year He says he still feels some residual condylomas. He denies any bleeding or pain. He also has condyloma was on the genital area and has been following Dr. Larios for this. [facility] Medical History Condyloma acuminatum of anus History of drainage of abscess Genital warts Surgical History Hx of surgical procedure (~07/02/24) Hx of excision of mass H/O tooth extraction History of surgery on lower extremity Family History Other Substance use disorder Social History Housing: Apartment Alcohol intake: current Alcohol intake frequency: 0-2 drinks per day Alcohol type: beer Comment: COUNTS CORRECT Patient Tobacco Use Status: Former Tobacco user e-Cigarette/Vaping Use: Never Used Second Hand Smoke Exposure: No Substance Use Type: Marijuana service: No Current occupational status: 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 Hearing needs: No Vision needs: Yes (reading glasses) Physical Exam Vital Signs: Last Vital Signs Pulse 79 08/23/24 09:50 BP 154/87 H 08/23/24 09:50 BMI result Body Mass Index 31.8 Const General: comfortable and no acute distress Orientation/consciousness: patient oriented x3 Neck Neck: Yes no lymphadenopathy Resp Auscultation: clear to auscultation bilaterally Cardio Rhythm: regular rhythm GI Other: Rectal exam shows residual condyloma on the anterior aspect of the perianal area, nontender, no bleeding Palpation (GI): Soft to palpation, nontender and no guarding Neuro General: patient oriented x3 Assessment & Plan Assessment & Plan (1) Condyloma acuminatum of anus: Code(s): A63.0 - Anogenital (venereal) warts Category: Medical Plan: He has residual condylomatous lesions in the anterior perianal area. I will schedule him for other exam under anesthesia and additional excision and fulguration. I explained to him the technique of the procedure. I reviewed the risks including but not limited to bleeding, infections, postop pain, as well as the benefits and alternatives. He understands that we may need to send him for treatment down the line if the residual condyloma show an invasive squamous cell carcinoma. He says that he is planning to have the genital condylomas excised down the line with Dr. Larios as well. Coding Level of Care Code Est Pt Level 3 (35168) Diagnoses Condyloma acuminatum of anus A63.0
[2024-08-23 09:50] VITALS: BP 154/87; PULSE 79; BMI 31.8
== END 2024-08-23 09:52 | disposition home or self-care (01) ==
PROVIDERS: PCP Internal Medicine; Visit Provider Surgery
DX: A63.0 Anogenital (venereal) warts (principal)
CPT/HCPCS: 99213

== ENCOUNTER → 2024-08-23 09:32 | Outpatient (BNVA) | payer OTHER, SELFPAY | PROVIDERS: PCP Internal Medicine; Visit Provider Surgery | DX: A63.0 Anogenital (venereal) warts (principal) | CPT/HCPCS: 99212 ==

== ENCOUNTER 2024-09-17 11:49 | Day surgery (SDC) | payer OTHER, SELFPAY ==
[2024-09-15 11:16] VITALS: BMI 31.8
--- NOTE | 2024-09-15 13:26 | HO.ANESPROP2 ---
Documented by User: Nerissa Dixon NP 09/24/24 12:31 HPI - Anesthesia Eval Consult details Narrative: 54yo M for EUA,Excision/fulguration of Perianal Condyloma s/p same 06/2024 with GA-ETT 7.5 (s/p same 04/2024 with GA-ETT 7.5 (See anesthesia record... First attempt with MAC intubation = lg amounts of secretions and cords closed. Easy intubation with proview.)) PMFSH Active Problems Active Problems: All Active Problems Anal warts (Acute) Scrotal abscess (Acute) Condyloma acuminatum of anus (Acute) Genital warts (Acute) Past Medical History Medical History Condyloma acuminatum of anus History of drainage of abscess Genital warts Family History Family History Other Substance use disorder Family history of problems with anesthesia: No Surgical History Surgical History (Updated 09/23/24 @ 13:53 by Monica Chavez Sandra) Hx of surgical biopsy (~09/17/24) Hx of surgical procedure (~07/02/24) Hx of excision of mass H/O tooth extraction History of surgery on lower extremity History of Problems with Anesthesia: No Social History Social History Housing: Apartment Are you a primary home care physical therapist to a significant other at home: No Do you presently have visiting nurse or other home services: No Alcohol intake: current Alcohol intake frequency: a few times a week Alcohol type: beer Comment: COUNTS CORRECT Patient Tobacco Use Status: Former Tobacco user Tobacco use type: Cigarette Years Smoked: 1 e-Cigarette/Vaping Use: Never Used Second Hand Smoke Exposure: No Substance Use Type: Marijuana service: No Current occupational status: 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 Hearing needs: No Vision needs: Yes (reading glasses) Meds Allergies Allergy/AdvReac Type Severity Reaction Status Date / Time No Known Allergies Allergy Verified 09/17/24 12:28 Home Medications ?Medication ?Instructions ?Recorded ?Confirmed ?Last Taken ?Type aspirin 81 mg tablet,delayed 81 mg PO DAILY 11/10/23 09/17/24 09/16/24 History release (Adult Low Dose Aspirin) ibuprofen 800 mg tablet 800 mg PO Q6H 01/29/24 09/17/24 09/03/24 History Exam Height,Weight and Vital Signs: Height 6 ft 1 in Weight 109.316 kg Pertinent Lab Results Pertinent Lab Results: Laboratory Tests 07/28/24 11:30 WBC 7.8 Hgb 14.3 Hct 43.0 Plt Count 252 Sodium 145 Potassium 4.7 D Chloride 104 Carbon Dioxide 31 H BUN 17 H Creatinine 0.77 Assessment and Plan Assessment Anesthesia Assessment: Chart Reviewed Final Anesthetic Review Family History of Problems with Anesthesia: No History of Problems with Anesthesia: No Documented by User: Teo Liu MD 10/06/24 16:52 [facility] Past Medical History Medical History Condyloma acuminatum of anus History of drainage of abscess Genital warts Family History Family History Other Substance use disorder Surgical History Surgical History (Updated 09/23/24 @ 13:53 by Monica Chavez [facility]) Hx of surgical biopsy (~09/17/24) Hx of surgical procedure (~07/02/24) Hx of excision of mass H/O tooth extraction History of surgery on lower extremity Social History Social History Housing: Apartment Are you a primary home care physical therapist to a significant other at home: No Do you presently have visiting nurse or other home services: No Alcohol intake: current Alcohol intake frequency: a few times a week Alcohol type: beer Comment: COUNTS CORRECT Patient Tobacco Use Status: Former Tobacco user Tobacco use type: Cigarette Years Smoked: 1 e-Cigarette/Vaping Use: Never Used Second Hand Smoke Exposure: No Substance Use Type: Marijuana service: No Current occupational status: 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
[2024-09-17 12:31] VITALS: BP 127/71; PULSE 52; RESP 16; TEMP 36.6; O2SAT 98; BMI 31.3
[2024-09-17] MEDS: Lactated Ringers 1,000 ML 100 ML IVCONT (12:51)
--- NOTE | 2024-09-17 13:34 | MHC.SHP ---
Pre-Procedural Eval Section A - 24 Hr Update-Section A only Date of Service: 09/17/24 The patient is an INPATIENT: No Changes since office visit: No Cold of Flu in the past 2 weeks, No New Medical Problems, No Changes in Medication and No Patient answered all questions The patient has been examined within 24 hours of the surgical procedure. The History & Physical has been completed within 30 days and I have reviewed it.: Yes Section B - Complete if H&P > 30 days Chief Complaint: Anogenital (venereal) warts Allergies: Allergies Allergy/AdvReac Type Severity Reaction Status Date / Time No Known Allergies Allergy Verified 09/17/24 12:28 Plan I have reviewed the history and physical and performed a pertinent physical examination on my patient. No changes have occurred unless specified. Time Spent With Patient Time: Total time managing care of this patient today ____ minutes.
--- NOTE | 2024-09-17 13:57 | PC.NURSE ---
Patient took aspirin yesterday. Dr. Cabello aware. Okay to proceed with surgery.
[2024-09-17 14:47] VITALS: BP 116/59; PULSE 56; RESP 18; TEMP 36.4; O2SAT 97
--- NOTE | 2024-09-17 14:51 | HO.ANESPROP2 ---
HPI - Anesthesia Eval Consult details Narrative: For EUA, excision of perianal condylomata PMFSH Active Problems Active Problems: All Active Problems Anal warts (Acute) Scrotal abscess (Acute) Condyloma acuminatum of anus (Acute) Genital warts (Acute) Past Medical History Medical History Condyloma acuminatum of anus History of drainage of abscess Genital warts Family History Family History Other Substance use disorder Family history of problems with anesthesia: No Surgical History Surgical History Hx of surgical procedure (~07/02/24) Hx of excision of mass H/O tooth extraction History of surgery on lower extremity History of Problems with Anesthesia: No Social History Social History Housing: Apartment Are you a primary career coordinator to a significant other at home: No Do you presently have visiting nurse or other home services: No Alcohol intake: current Alcohol intake frequency: a few times a week Alcohol type: beer Comment: COUNTS CORRECT Patient Tobacco Use Status: Former Tobacco user Tobacco use type: Cigarette Years Smoked: 1 Smoked in Last 30 Days: No e-Cigarette/Vaping Use: Never Used Second Hand Smoke Exposure: No Use of substances other than those prescribed or required for medical reasons: Yes Substance Use Type: Marijuana Substance Use Frequency: Weekly Have you been hit, kicked, punched, or otherwise hurt by someone within the past year? 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 Hearing needs: No Vision needs: Yes (reading glasses) Meds Allergies Allergy/AdvReac Type Severity Reaction Status Date / Time No Known Allergies Allergy Verified 09/17/24 12:28 Active Medications: Current Medications Lactated Ringer's (Lr) 1,000 mls @ 100 mls/hr IVCONT .Q10H ELADIO Last Admin: 09/17/24 12:51 Dose: 100 mls/hr Home Medications ?Medication ?Instructions ?Recorded ?Confirmed ?Last Taken ?Type aspirin 81 mg tablet,delayed 81 mg PO DAILY 11/10/23 09/17/24 09/16/24 History release (Adult Low Dose Aspirin) ibuprofen 800 mg tablet 800 mg PO Q6H 01/29/24 09/17/24 09/03/24 History Exam Height,Weight and Vital Signs: Height 6 ft 1 in Weight 107.501 kg Last Vital Signs Temp 97.8 F 09/17/24 12:31 Pulse 52 09/17/24 12:31 Resp 16 09/17/24 12:31 BP 127/71 09/17/24 12:31 Pulse Ox 98 09/17/24 12:31 O2 Del Method Room Air 09/17/24 12:31 Airway Mallampati Class: I TM Dist: <=3cm Neck ROM: Full Denture: Upper and Lower Heart: OK Lungs: OK Assessment and Plan Assessment Anesthesia Assessment: Anesthesia Plan Discussed Final Anesthetic Review Family History of Problems with Anesthesia: No History of Problems with Anesthesia: No NPO: Yes ASA Class: II Final Preanesthetic Review: No Changes in Pt Med Stat, Meds/Allgs Chart Reviewed, Consent Obtained/Reviewed and Anes Risks/Benef Reviewed Patient Risk: Low Procedure Risk: Intermediate Anesthetic Plan Anesthetic Plan: GA and Agree w/ Assess. and Plan Disposition: Standard PACU
--- NOTE | 2024-09-17 14:53 | P.OP_ITS ---
Operative Note Operative Note Date of Service: 09/17/24 Narrative: Preop diagnosis: Perianal lesion, history of bulky condyloma Postop diagnosis: Perianal lesion, suspicious for squamous cell carcinoma Procedure: Exam under anesthesia, biopsy of perianal lesion Surgeon: Alvarez Cabello MD The patient is a 54-year-old male who has had multiple bulky condylomatous lesions and had been undergoing excisions in the past. The last time he had this done, there were no obvious residual lesions. I had seen him again in the office on a follow-up I had recommended close monitoring because of presence of high-grade dysplasia. There was note of a new lesion that appeared to be a co ndyloma on the anterior aspect of the anal verge. I actually scheduled him for excision of this condylomatous lesion and he understood the technique of the planned procedure as well as the risks, benefits, and alternatives He was brought to the operating room. He was placed in prone paradise-knife position under general anesthesia via laryngeal mask airway. The buttocks were retracted with wide tape laterally. The perianal area was prepped and draped in the usual sterile fashion. A surgical time-out was done. The patient received Cefotan 2 g IV preoperatively Examination of the anal orifice revealed a large lesion of the anal verge anteriorly. This appeared to have pearly edges and is suspicious for a squamous cell carcinoma. I inserted the Jaime Oneill retractor. I examined the anal canal circumferentially. There were no other lesions in the anal canal itself. The lesion was bulky and about 3.2 cm at its widest dimension. I proceeded to excise a wedge shaped piece of this in the facet is a specimen for pathology I cauterized the biopsy site and applied Gelfoam for oozing Once hemostasis was confirmed, I proceeded to then he had the perianal area with Marcaine 0.5% for postop analgesia. The procedure was completed The patient tolerated procedure well. There were no immediate complications There was minimal blood loss I will see him in the office to discuss the path report. Again this is suspicious for a squamous cell carcinoma of the anus.
[2024-09-17 15:02] VITALS: BP 127/77; PULSE 52; RESP 16; TEMP 36.4; O2SAT 99
== END 2024-09-17 15:30 | disposition home or self-care (01) ==
PROVIDERS: PCP Internal Medicine; Visit Provider Surgery
PROC: 0DBQXZZ Excision of Anus, External Approach (ICD-10-PCS; CPT 45100; principal; 2024-09-17 14:40)
DX: K62.89 Other specified diseases of anus and rectum (principal); A63.0 Anogenital (venereal) warts; Z98.890 Other specified postprocedural states; Z79.1 Long term (current) use of non-steroidal anti-inflammatories (NSAID); Z79.82 Long term (current) use of aspirin
CPT/HCPCS: 45100; 88304; 88305; 88341; 88342; J2003; J2704; J2795; J3010

== ENCOUNTER → 2024-09-17 11:49 | Outpatient (BNV) | payer OTHER, SELFPAY | PROVIDERS: PCP Internal Medicine; Visit Provider Surgery | DX: C44.520 Squamous cell carcinoma of anal skin (principal) | CPT/HCPCS: 11604 ==

== ENCOUNTER 2024-10-25 09:21 | Outpatient (AMB) | payer OTHER, SELFPAY ==
--- NOTE | 2024-10-25 09:23 | MHC.OFFVIS ---
Vital Signs 10/25/24 09:24 Height 6 ft 1 in Weight 238 lb BMI 31.4 BP 148/69 H Blood Pressure Location Rt brachial Position Sitting Pulse 62 Intake Visit Reasons: post op check/discuss path Intake Note: This patient presents for follow-up status post Exam under anesthesia, biopsy of perianal lesion. Pt c/o; reports no complaints at this time. 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 He had undergone excision of bulky perianal condylomas last 07/02/2024. His path report had shown superficial invasive squamous cell carcinoma on some of the lesions. I advised him to therefore follow up in the office as it was likely that he will require additional excision . He also had some of the condyloma was removed earlier this year I had taken him back to the OR last 09/17/2024 because of regrowth of more condylomas . I did a biopsy of a lesion in the distal anoderm at that time. He is here to discuss the path report. He describes persistent pain in the area. [facility] Medical History Anal cancer Condyloma acuminatum of anus History of drainage of abscess Genital warts Surgical History Hx of surgical biopsy (~09/17/24) Hx of surgical procedure (~07/02/24) Hx of excision of mass H/O tooth extraction History of surgery on lower extremity Family History Other Substance use disorder Social History Housing: Apartment Are you a primary medicare coordinator to a significant other at home: No Do you presently have visiting nurse or other home services: No Alcohol intake: current Alcohol intake frequency: a few times a week Alcohol type: beer Comment: COUNTS CORRECT Patient Tobacco Use Status: Former Tobacco user Tobacco use type: Cigarette Years Smoked: 1 e-Cigarette/Vaping Use: Never Used Second Hand Smoke Exposure: No Substance Use Type: Marijuana service: No Current occupational status: employed Current occupation: [employer] Cognitive needs: No Hearing needs: No Vision needs: Yes (reading glasses) Review of Systems Const Denies chills and Denies fever(s) Card Denies chest pain, Denies dyspnea and Denies dyspnea on exertion Resp Denies cough, Denies dyspnea and Denies dyspnea on exertion GI Denies hematochezia and Denies change in bowel habits Denies hematuria and Denies difficulty urinating Musc Denies back pain and Denies limited range of motion Neuro Denies focal weakness and Denies convulsions Psych Denies depression and Denies mood swings Physical Exam Vital Signs: Last Vital Signs Pulse 62 10/25/24 09:24 BP 148/69 H 10/25/24 09:24 BMI result Body Mass Index 31.4 Const General: no acute distress Resp Effort & Inspection: normal respiratory effort Cardio Rate: regular rate GI Other: Rectal exam shows a large mass, soft but with pearly edges, tender, on the anal verge, about 2.5 cm Assessment & Plan Assessment & Plan (1) Anal cancer: Code(s): C21.0 - Malignant neoplasm of anus, unspecified Category: Medical Plan: His path report shows findings suspicious for squamous cell carcinoma of the anal verge. Regrowth and increased in size this consistent with an invasive squamous cell carcinoma. 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 I am going to arrange for him to be seen by Oncology for chemotherapy and radiation which is the standard treatment. He will also need workup with imaging studies to rule out distant metastasis I explained to him the above. He says he understands and agrees to proceed He does have other lesions in the penile shaft as well which appeared to be condylomatous. He is being followed by Dr. Larios for this. Orders: Orders CT chest w IV con 10/25/24 C21.0 - Malignant neoplasm of anus, unspecified Blood Urea Nitrogen 10/25/24 C21.0 - Malignant neoplasm of anus, unspecified CT abdomen pelvis w IV con 10/25/24 C21.0 - Malignant neoplasm of anus, unspecified Creatinine 10/25/24 C21.0 - Malignant neoplasm of anus, unspecified Referrals Hematology & Oncology Referral C21.0 - Malignant neoplasm of anus, unspecified Coding Level of Care Code Est Pt Level 4 (00831) Diagnoses Anal cancer C21.0
[2024-10-25 09:24] VITALS: BP 148/69; PULSE 62; BMI 31.4
== END 2024-10-25 09:54 | disposition home or self-care (01) ==
PROVIDERS: PCP Internal Medicine; Visit Provider Surgery
DX: C21.0 Malignant neoplasm of anus, unspecified (principal)
CPT/HCPCS: 99214

== ENCOUNTER 2024-10-25 09:21 | Outpatient (REF) | payer OTHER, SELFPAY ==
[2024-10-25 10:46] LABS: Blood Urea Nitrogen 16 mg/dL (9-16); Estimated Glomerular Filt Rate > 60
== END 2024-10-25 09:22 | disposition home or self-care (01) ==
LOC: HO.LAB 09:21
PROVIDERS: PCP Internal Medicine; Visit Provider Surgery
DX: C21.0 Malignant neoplasm of anus, unspecified (principal)
CPT/HCPCS: 36415; 82565; 84520; 99212

== ENCOUNTER → 2024-11-05 13:09 | Outpatient (BNV) | payer OTHER, SELFPAY | PROVIDERS: PCP Internal Medicine; Referring Provider Surgery; Visit Provider Internal Medicine | DX: C21.0 Malignant neoplasm of anus, unspecified (principal) | CPT/HCPCS: 99205; G2211 ==

== ENCOUNTER 2024-11-09 10:50 | Outpatient (REF) | payer OTHER, SELFPAY ==
--- NOTE | ~2024-11-09 | CT_ITS ---
EXAMINATION: CT ABDOMEN AND PELVIS WITH CONTRAST CLINICAL INFORMATION: Malignant neoplasm of the anus. COMPARISON: CT dated January 28, 2024 and November 26, 2022 TECHNIQUE: Multidetector volumetric images were obtained from the superior aspect of the liver through the pubic symphysis following administration 85 mL of Omnipaque 350 intravenous contrast. Sagittal and coronal reformatted images were obtained on the technologist's workstation. Oral contrast: No This CT examination was performed using dose optimization techniques as appropriate, variously including the following: *Automated exposure control *Adjustment of mA and/or kV according to patient size (this includes techniques or standardized protocols for targeted exams where dose is matched to indication/reason for exam; i.e. extremities or head) *Use of iterative reconstruction technique. Total dose: 623 mGy centimeter FINDINGS: LUNG BASES: No acute airspace disease or gross pulmonary nodules in the included lungs. LIVER, GALLBLADDER, AND BILIARY TREE: Liver measures 15 cm. There is a 4 mm hypodensity in the dome of the left hepatic lobe too small to be fully characterized by CT. Portal veins, hepatic veins and intrahepatic portion of the IVC are patent. Intraluminal faint hyperdensity, gallbladder. No pericholecystic fluid collection or gallbladder wall thickening. No intrahepatic or extrahepatic biliary ductal dilatation. PANCREAS: No focal mass. No peripancreatic fluid collection. No main pancreatic ductal dilatation. Decreased attenuation and enhancement pattern in the head and uncinate process. SPLEEN: 11 cm. No focal mass. ADRENAL GLANDS: No nodular lesions. KIDNEYS AND URETERS: Normal enhancement pattern. No renal mass. No hydronephrosis. There is a 6 mm fluid density in the anterior midportion right kidney. BLADDER: Fluid-filled. GASTROINTESTINAL TRACT: There is a 3 cm irregularly-shaped soft tissue fullness in the anterior left perianal region, 1-2 o'clock position. Scattered numerous diverticula throughout the large intestine. Abundant stool in the large intestine. No intestinal obstruction pattern. No ascites. No pneumatosis intestinalis. No pneumoperitoneum. Appendix is normal. ABDOMINAL WALL: Small fat-containing umbilical hernia. LYMPH NODES: Lymphadenopathy, inguinal. Prominent, nonspecific mesenteric and retroperitoneal lymph nodes. VASCULAR: Prominent tortuous vessels in the anterior upper thighs, bilaterally. No aneurysm or dissection, abdominal aorta. PELVIC VISCERA: The prostate gland is not enlarged. OSSEOUS STRUCTURES: Multilevel thoracolumbar spondylosis. There is a subtle grade 1 anterolisthesis L4-5 on a degenerative basis. Symmetric Joint space narrowing subchondral cyst formation and sclerosis, right coxofemoral joint and to a lesser extent left coxofemoral joint. Sclerosis in the sacroiliac joints bilaterally. Mixed calcific matrix bone lesion in the greater trochanter right femur. CT/CT abdomen pelvis w IV con IMPRESSION: 3 cm soft tissue fullness, 1-2 o'clock position of the left perianal. Diverticular disease. Probable cholelithiasis. Small fat-containing umbilical hernia. Lymphadenopathy, inguinal. Probable varices, upper thighs. Questionable enchondroma, greater trochanter right femur. Subtle grade 1 anterolisthesis L4-5 and multilevel thoracolumbar spondylosis. Osteoarthrosis, right greater than left coxofemoral joints. Fleischner guidelines were followed. Electronically signed by: Abimael Michael MD 11/09/2024 01:20 PM [facility]
--- NOTE | ~2024-11-09 | CT_ITS ---
EXAMINATION: CT CHEST WITH CONTRAST CLINICAL INFORMATION: Malignant neoplasm of the anus. COMPARISON: None available. TECHNIQUE: Multidetector volumetric CT imaging of the chest was obtained after the administration of 85 mL of Omnipaque 350 intravenous contrast without immediate adverse reactions. Axial MIP volume rendering provided. Sagittal and coronal reformatted images were obtained. This CT examination was performed using dose optimization techniques as appropriate, variously including the following: *Automated exposure control *Adjustment of mA and/or kV according to patient size (this includes techniques or standardized protocols for targeted exams where dose is matched to indication/reason for exam; i.e. extremities or head) *Use of iterative reconstruction technique. Total dose: 229 mGy centimeter. FINDINGS: No gross pulmonary nodules. No consolidation pleural effusion or pneumothorax. No bronchiectasis. No honeycombing. Respiratory airways patent. No lymphadenopathy, mediastinum or perihilar. No aneurysm or dissection, thoracic aorta. No pericardial effusion. No axillary lymphadenopathy. Prominent breast tissue bilaterally. Multilevel spondylosis. No acute fracture or listhesis. No lytic or blastic lesions. CT/CT chest w IV con IMPRESSION: No intrathoracic metastatic disease. Gynecomastia, bilaterally. No acute airspace disease. Multilevel spondylosis. Fleischner guidelines were followed. Electronically signed by: Abimael Michael MD 11/09/2024 01:57 PM [facility]
[2024-11-09 11:12] LABS: MANUAL DIFF FLAG NO
[2024-11-09 11:57] LABS: Basophils Absolute Auto 0.1 X10*3/uL (0.0-0.2); Basophils Percent Auto 0.4 % (0-2); Eosinophils Absolute Auto 0.1 X10*3/uL (0.0-0.4); Eosinophils Percent Auto 0.8 % (0-4); Hematocrit 42.3 % (42.0-52.0); Imm Gran Pct Auto 0.8 % (0.0-0.4); Lymphocytes Absolute Auto 1.7 X10*3/uL (1.2-4.9); Lymphocytes Percent Auto 13.1 % (20-40); Mean Corpuscular HGB Conc 33.1 g/dl (31.0-36.0); Mean Corpuscular Hemoglobin 29.9 pg (27.0-33.0); Mean Corpuscular Volume 90.4 fL (80.0-98.0); Mean Platelet Volume 10.7 fL (9.4-12.4); Monocytes Percent Auto 7.5 % (2-11); Neutrophils Absolute Auto 9.9 x10*3/uL (2.0-8.3); Neutrophils Percent Auto 77.4 % (45-73); Platelet Count 355 X10*3/uL (160-400); Red Blood Count 4.68 X10*6/uL (4.60-5.80); Red Cell Distribution Width 14.4 % (11.0-16.0); White Blood Count 12.8 X10*3/uL (4.8-10.8)
[2024-11-09 12:00] LABS: Prothrombin Time 11.6 SEC (10.9-12.4)
[2024-11-09 12:39] LABS: Alanine Aminotransferase 19 U/L (0-40); Albumin Level 4.1 g/dL (3.5-5.0); Alkaline Phosphatase 84 U/L (39-117); Anion Gap 11 (12-20); Aspartate Amino Transferase 21 U/L (5-37); Bilirubin Total 1.1 mg/dL (0.0-1.0); Blood Urea Nitrogen 9 mg/dL (9-16); Calcium 9.7 mg/dL (8.4-10.2); Carbon Dioxide 28 mmol/L (22-29); Chloride 106 mmol/L (96-108); Estimated Glomerular Filt Rate > 60; Glucose Random 112 mg/dL (60-115); Potassium 4.2 mmol/L (3.3-5.1); Sodium 141 mmol/L (135-145)
[2024-11-09] MEDS: iohexoL 350 MG/ML 100 ML INFUS..BTL IV (12:42)
[2024-11-09 12:48] LABS: HBS Num1 0.46 mIU/mL (0-7.99); HBc Num1 0.08 S/CO (0.00-0.79); HBsAGNum1 0.45 S/CO (0.00-0.99); HIV AB/AG Nonreactive (Nonreactive); HIV Num 1 0.04 S/CO (0.00-0.99); Hepatitis A Antibody IgM 0.14 Index (0-0.79); Hepatitis B Core Antibody Nonreactive (Nonreactive); Hepatitis B Surface Antigen Negative (Negative); ~HepC Num1 0.09 S/CO (0.00-0.79); ~Hepatitis A Antibody IgM Nonreactive (Nonreactive); ~Hepatitis B Surface Antibody NONREACTIVE (Nonreactive); ~Hepatitis C Antibody Nonreactive (Nonreactive)
[2024-11-09 13:34] LABS: Carcinoembryonic Antigen < 1.73 ng/mL
== END 2024-11-09 10:51 | disposition home or self-care (01) ==
LOC: HO.CT 10:50
PROVIDERS: Absent Provider Internal Medicine; PCP Internal Medicine; Visit Provider Surgery
DX: C21.0 Malignant neoplasm of anus, unspecified (principal)
CPT/HCPCS: 36415; 71260; 74177; 80053; 82378; 85025; 85610; 86704; 86706; 86709; 86803; 87340; 87389; Q9967

== ENCOUNTER → 2024-11-09 11:13 | Outpatient (BNV) | payer OTHER, SELFPAY | PROVIDERS: Absent Provider Internal Medicine; PCP Internal Medicine; Visit Provider Radiology Diagnostic Radiology | DX: C21.0 Malignant neoplasm of anus, unspecified (principal) | CPT/HCPCS: 71260; 74177 ==

== ENCOUNTER 2024-11-23 09:51 | Day surgery (SDC) | payer OTHER, SELFPAY ==
--- NOTE | 2024-11-22 11:46 | P.CONAN_ITS ---
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 Pending chemoradiation. PMFSH Active Problems Active Problems: All Active Problems Anal warts (Acute) Scrotal abscess (Acute) Anal cancer (Acute) Condyloma acuminatum of anus (Acute) Genital warts (Acute) Past Medical History Medical History Varices of other sites Hydrocele Anal cancer Condyloma acuminatum of anus History of drainage of abscess Genital warts Family History Family History Other Substance use disorder Family history of problems with anesthesia: No Surgical History Surgical History Hx of surgical biopsy (~09/17/24) Hx of surgical procedure (~07/02/24) Hx of excision of mass H/O tooth extraction History of surgery on lower extremity History of Problems with Anesthesia: No Social History Social History Household Members: Significant Other Housing: Apartment Are you a primary transitional care liaison to a significant other at home: No Do you presently have visiting nurse or other home services: No Alcohol intake: current Alcohol intake frequency: a few times a week Alcohol type: beer Comment: COUNTS CORRECT Patient Tobacco Use Status: Former Tobacco user Tobacco use type: Cigarette Years Smoked: 1 e-Cigarette/Vaping Use: Never Used Second Hand Smoke Exposure: No Substance Use Type: Marijuana service: No Current occupational status: employed 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 Sexual orientation: Straight/Heterosexual Gender identity: Male Cognitive needs: No Hearing needs: No Vision needs: Yes (reading glasses) Meds Allergies Allergy/AdvReac Type Severity Reaction Status Date / Time No Known Allergies Allergy Verified 10/25/24 09:32 Home Medications ?Medication ?Instructions ?Recorded ?Confirmed ?Last Taken ?Type aspirin 81 mg tablet,delayed 81 mg PO DAILY 11/10/23 11/05/24 09/16/24 History release (Adult Low Dose Aspirin) ibuprofen 800 mg tablet 800 mg PO Q6H 01/29/24 11/05/24 09/03/24 History Assessment and Plan Assessment Anesthesia Assessment: Chart Reviewed Final Anesthetic Review Family History of Problems with Anesthesia: No History of Problems with Anesthesia: No Documented by User: Aníbal Parker MD 11/23/24 15:42 PMFSH Past Medical History Medical History Varices of other sites Hydrocele Anal cancer Condyloma acuminatum of anus History of drainage of abscess Genital warts Family History Family History Other Substance use disorder Surgical History Surgical History Hx of surgical biopsy (~09/17/24) Hx of surgical procedure (~07/02/24) Hx of excision of mass H/O tooth extraction History of surgery on lower extremity Social History Social History Household Members: Significant Other Housing: Apartment Are you a primary transitional care liaison to a significant other at home: No Do you presently have visiting nurse or other home services: No Alcohol intake: current Alcohol intake frequency: a few times a week Alcohol type: beer Comment: COUNTS CORRECT Patient Tobacco Use Status: Former Tobacco user Tobacco use type: Cigarette Years Smoked: 1 e-Cigarette/Vaping Use: Never Used Second Hand Smoke Exposure: No Substance Use Type: Marijuana service: No Current occupational status: employed Current occupation: [employer] Sexual orientation: Straight/Heterosexual Gender identity: Male Cognitive needs: No Hearing needs: No Vision needs: Yes (reading glasses) Meds Allergies Allergy/AdvReac Type Severity Reaction Status Date / Time No Known Allergies Allergy Verified 10/25/24 09:32 Home Medications ?Medication ?Instructions ?Recorded ?Confirmed ?Last Taken ?Type aspirin 81 mg tablet,delayed 81 mg PO DAILY 11/10/23 11/05/24 09/16/24 History release (Adult Low Dose Aspirin) ibuprofen 800 mg tablet 800 mg PO Q6H 01/29/24 11/05/24 09/03/24 History Exam Airway TM Dist: >3cm Assessment and Plan Assessment Anesthesia Assessment: Anesthesia Plan Discussed Final Anesthetic Review NPO: Yes ASA Class: II Final Preanesthetic Review: No Changes in Pt Med Stat, Meds/Allgs Chart Reviewed, Consent Obtained/Reviewed and Anes Risks/Benef Reviewed Patient Risk: Low Procedure Risk: Low Anesthetic Plan Anesthetic Plan: MAC: Disposition: Standard PACU
[2024-11-23 10:27] VITALS: BP 137/74; PULSE 79; RESP 16; TEMP 36.4; O2SAT 100; BMI 30.3
--- NOTE | 2024-11-23 10:28 | MHC.SHP ---
Pre-Procedural Eval Section A - 24 Hr Update-Section A only Date of Service: 11/23/24 The patient is an INPATIENT: No Changes since office visit: No Cold of Flu in the past 2 weeks, No New Medical Problems, No Changes in Medication and No Patient answered all questions The patient has been examined within 24 hours of the surgical procedure. The History & Physical has been completed within 30 days and I have reviewed it.: Yes Section B - Complete if H&P > 30 days Chief Complaint: Malignant neoplasm of anus, unspecified Allergies: Allergies Allergy/AdvReac Type Severity Reaction Status Date / Time No Known Allergies Allergy Verified 10/25/24 09:32 Plan I have reviewed the history and physical and performed a pertinent physical examination on my patient. No changes have occurred unless specified. Time Spent With Patient Time: Total time managing care of this patient today ____ minutes.
--- OUTSIDE RECORDS SUMMARY | 2024-11-23 11:04 | XMS_ITS | Clinical Summary ---
Demographics Address [address] [place] [address] Home Phone Work Phone Preferred Language en Marital Status Single Temple Affiliation Unknown Race White Ethnic Group Not or Lati no Author Organization [employer] Address [address] [place] [address] Care Team Providers Care Office Services Specialist Name Role Phone Unavailable Primary Care Provider Unavailabl e Social History Tobacco Use Types Packs/Day Years Used Date Smoking Tobacco: Never Assessed Sex and Gender Information Value Date Recorded Sex Assigned at Male 09/02/2022 10:16 AM EDT Legal Sex Male 10:16 AM EDT Gender Identity Not on file Sexual Orientation Not on file Plan of Treatment Health Maintenance Due Date Last Done Comments CT Colonography 1971 Colonoscopy 1971 Colorectal Cancer Screening 1971 Depression Screening 1971 FIT DNA/Cologuard 1971 FIT 1971 FOBT 1971 Lipid Panel 1971 Sigmoidoscopy 1971 Alcohol/Substance Use Screening 1983 Tobacco Screening 1983 DTaP/Tdap/Td Vaccines (1 - Tdap) 1990 Hepatitis B Vaccines (1 of 3 - 19+ 3-dose series) 1990 Zoster Vaccines (1 of 2) 2021 COVID-19 Vaccine ( - 2023-2 5 season) 2024 Influenza Vaccine (#1) 2024 RSV Patients and Pa tients Aged 60 years or older (1 - 1-dose 75+ series) 2046 HIB Vaccines Aged Out No longer eligi ble based on patient's age to complete this topic HPV Vaccines Aged Out No longer eligi ble based on patient's age to complete this topic Hepatitis A Vaccines Aged Out No long er eligible based on patient's age to complete this topic IPV Vaccines Aged Out No longer eligi ble based on patient's age to complete this topic Meningococcal Vaccine Aged Out No selma tati eligible based on patient's age to complete this topic Pneumococcal Vaccine: Pediat rics (0 to 5 Years) and At-Risk Patients (6 to 64 Years) Aged Out No longer eligible b ased on patient's age to complete this topic RSV under 20 months Aged Out No longe r eligible based on patient's age to complete this topic Rotavirus Vaccines Aged Out No longer eligible based on patient's age to complete this topic
--- OUTSIDE RECORDS SUMMARY | 2024-11-23 11:04 | XMS_ITS | Clinical Summary ---
Author Organization [facility] Address [address] [place] [address] Phone Care Team Providers Care Grain Loader Name Role Phone Unavailable Primary Care Provider Unavailabl e Encounters Date Type Department Care Team Description 11/16/2024 8:36 AM EST Hospital Encounter [facility] PET Scan [address] [place] [address] Malignant neoplasm of anus, unspecified (CMS/HCC) from Last 3 Months Social History Tobacco Use Types Packs/Day Years Used Date Smoking Tobacco: Never Assessed Sex and Gender Information Value Date Recorded Sex Assigned at Male 11/15/2024 2:23 PM EST Gender Identity Male 11/15/2024 2:23 PM EST Sexual Orientation Not on file Plan of Treatment Health Maintenance Due Date Last Done Comments COVID-19 Vaccine (#1) 1976 Pneumococcal Vaccine: Pediat rics (0 to 5 Years) and At-Risk Patients (6 to 64 Years) (1 of 2 - PCV) 1977 DTaP,Tdap,and Td Vaccines (1 - Tdap) 1990 Hepatitis B Vaccines (1 of 3 - 19+ 3-dose series) 1990 Zoster Vaccines (1 of 2) 1990 Influenza Vaccine (#1) 2024 Cholesterol Screening (Lipid Panel) 11/15/2024 Colorectal Cancer Screening: Colonoscopy 11/15/2024 Depression Screening 11/15/2024 HIV Screening 11/15/2024 Hepatitis C Screening 11/15/2024 Social Influencers of Health Screening 11/15/2024 HIB Vaccines Aged Out No longer eligi [...] on patient's age to complete this topic MMR Vaccines Aged Out No longer eligi ble based on patient's age to complete this topic Meningococcal ACWY Vaccine Aged Out N o longer eligible based on patient's age to complete this topic RSV Immunization Patients Un jairo 20 months Aged Out No longer eligible b ased on patient's age to complete this topic Varicella Vaccines Aged Out No longer eligible based on patient's age to complete this topic Procedures Procedure Name Priority Date/Time Associated Diagnosis Comments PET CT SKULL TO MID THIGH INITIAL Routine 11/16/2024 10:03 AM EST Malignant neoplasm of anus, unspecified (CMS/HCC) from Last 3 Months Results * PET CT Skull to Mid Thigh Initial (11/16/2024 10:03 AM EST) Anatomical Region Laterality Modality Body Radiographic Amaya ging 11/17/2024 5:55 AM EST Impressions 11/17/2024 10:08 AM EST 1. ??FDG avid anal mass in keeping with biopsy-proven malignancy and FDG avid bilateral condylomatous masses 2. ??FDG avid bilateral inguinal and left deep inguinal lymphadenopathy suspicious for metastatic disease 3. ??Asymmetric focal FDG activity in the inferior left thyroid lobe which may correspond to ill-defined nodule. ??Correlation with thyroid ultrasound is recommended. Please note: The CT was acquired at a low radiation dose settings. ??The images are of nondiagnostic quality and used solely for purposes of attenuation correction and slice localization for the PET scan. ??If a diagnostic CT study is desired it must be ordered separately. -------- FINAL REPORT -------- Dictated By: Cecelia Go Dictated Date: 11/17/2024 05:55 ET Assigned Physician: Cecelia Go Reviewed and Electronically Signed By: Cecelia Go Signed Date: 11/17/2024 10:08 ET Workstation ID: [id number] Transcribed By: Self Edit Transcribed Date: 11/17/2024 06:32 ET Narrative 11/17/2024 10:08 AM EST INDICATION: ANUS CANCER. ??History of excision. ??Staging. ??Outside CT demonstrated inguinal lymphadenopathy. TECHNIQUE: FDG PET-CT imaging was performed from the skull bases through the thighs in a single acquisition with data set reconstructed in axial, coronal, and sagittal planes at the computer workstation with fused data from both the PET imaging study and attenuation correction CT. The CT portion of the examination was done strictly for attenuation correction and is not a true diagnostic CT examination. ??Enteric contrast was administered. DLP: ??1427 mGy-cm Radiopharmaceutical: 11.8 mCi of F-18 FDG IV. Blood glucose: 103 mg/dl. COMPARISON: Correlation is made with outside CT of the chest abdomen pelvis dated November 2024. FINDINGS: HEAD AND NECK: Focal area of asymmetric FDG activity in the inferior left thyroid lobe SUV max 4.8 which may correspond to ill-defined nodule (best seen on the coronal and sagittal sequences) on outside chest CT (series 8, image 38; series 9, image 53). ?? Nonenlarged enlarged bilateral cervical lymph nodes without significant FDG activity. ??For example left level II SUV Max 1.7 and on the right SUV max 1.1. Trace mucosal thickening of the right maxillary sinus. THORAX: No FDG avid pulmonary nodules. No FDG avid thoracic or axillary lymphadenopathy. ??Bilateral gynecomastia. ABDOMEN/PELVIS: Irregular mass within the anus with overlying subcutaneous soft tissue fullness and stranding SUV Max 16.3. Overlying subcutaneous soft tissue attenuation and skin thickening within the bilateral groin region SUV max 8.8 in keeping with patient's clinical history of condylomatous masses. FDG avid enlarged bilateral inguinal lymphadenopathy SUV max 5.4 on the right and 3.7 on the left. Bilateral nonenlarged retroperitoneal lymph nodes SUV max 1.2. ??Bilateral external iliac lymph nodes SUV max 1.6 on the right and 1.5 on the left. ??Nonenlarged right obturator lymph node SUV max 2.0. ??Nonenlarged left deep inguinal lymph node measuring 8 mm in short axis diameter SUV max 3.1. Diverticulosis. ??Cholelithiasis. ??Fat-containing umbilical hernia. Nonspecific urinary bladder wall thickening. ??Prominent prostate gland. ??Multiple varicosities are noted within the thighs. MUSCULOSKELETAL: No abnormal FDG activity. ??Degenerative changes with associated FDG activity most significantly involving the hips. Procedure Note Cecelia Go MD - 11/17/2024 INDICATION: ANUS CANCER. History of excision. Staging. Outside CTdemonstrated inguinal lymphadenopathy. TECHNIQUE: FDG PET-CT imaging was performed from the skull bases throughthe thighs in a single acquisition with data set reconstructed in axial,coronal, and sagittal planes at the computer workstation with fused datafrom both the PET imaging study and attenuation correction CT. The CTportion of the examination was done strictly for attenuation correctionand is not a true diagnostic CT examination. Enteric contrast wasadministered. DLP: 1427 mGy-cm Radiopharmaceutical: 11.8 mCi of F-18 FDG IV. Blood glucose: 103 mg/dl. COMPARISON: Correlation is made with outside CT of the chest abdomenpelvis dated November 2024. FINDINGS: HEAD AND NECK: Focal area of asymmetric FDG activity in the inferior leftthyroid lobe SUV max 4.8 which may correspond to ill-defined nodule (bestseen on the coronal and sagittal sequences) on outside chest CT (series 8,image 38; series 9, image 53). Nonenlarged enlarged bilateral cervical lymph nodes without significantFDG activity. For example left level II SUV Max 1.7 and on the right SUVmax 1.1. Trace mucosal thickening of the right maxillary sinus. THORAX: No FDG avid pulmonary nodules. No FDG avid thoracic or axillary lymphadenopathy. Bilateralgynecomastia. ABDOMEN/PELVIS: Irregular mass within the anus with overlying subcutaneoussoft tissue fullness and stranding SUV Max 16.3. Overlying subcutaneous soft tissue attenuation and skin thickening withinthe bilateral groin region SUV max 8.8 in keeping with patient's clinicalhistory of condylomatous masses. FDG avid enlarged bilateral inguinal lymphadenopathy SUV max 5.4 on theright and 3.7 on the left. Bilateral nonenlarged retroperitoneal lymph nodes SUV max 1.2. Bilateralexternal iliac lymph nodes SUV max 1.6 on the right and 1.5 on the left.Nonenlarged right obturator lymph node SUV max 2.0. Nonenlarged left deepinguinal lymph node measuring 8 mm in short axis diameter SUV max 3.1. Diverticulosis. Cholelithiasis. Fat-containing umbilical hernia. Nonspecific urinary bladder wall thickening. Prominent prostate gland.Multiple varicosities are noted within the thighs. MUSCULOSKELETAL: No abnormal FDG activity. Degenerative changes withassociated FDG activity most significantly involving the hips. IMPRESSION: 1. FDG avid anal mass in keeping with biopsy-proven malignancy and FDGavid bilateral condylomatous masses 2. FDG avid bilateral inguinal and left deep inguinal lymphadenopathysuspicious for metastatic disease 3. Asymmetric focal FDG activity in the inferior left thyroid lobe whichmay correspond to ill-defined nodule. Correlation with thyroid ultrasoundis recommended. Please note: The CT was acquired at a low radiation dose settings. The images are ofnondiagnostic quality and used solely for purposes of attenuationcorrection and slice localization for the PET scan. If a diagnostic CTstudy is desired it must be ordered separately. -------- FINAL REPORT -------- Dictated By: Cecelia Go Dictated Date: 11/17/2024 05:55 ET Assigned Physician: Cecelia Go Reviewed and Electronically Signed By: Cecelia Go Signed Date: 11/17/2024 10:08 ET Workstation ID: [id number] Transcribed By: Self Edit Transcribed Date: 11/17/2024 06:32 ET Mariia BOSWELL [place] PROCEDURES from Last 3 Months
--- OUTSIDE RECORDS SUMMARY | 2024-11-23 11:04 | XMS_ITS | Encounter Summary ---
Author Organization [facility] Address [address] [place] [address] Care Team Providers Care Social Media Project Manager Name Role Phone Unavailable Primary Care Provider Unavailabl e Reason for Referral * Imaging (Routine) - Closed Specialty Diagnoses / Procedures Referred By Mariano hernandez Referred To Contact Radiology Diagnoses Malignant neoplasm of anus, unspecified (CMS/HCC) Procedures PET CT Skull to Mid Thigh Initial Mariia Leavitt MD [address] [place] [address] HEMATOLOGY / [place] [address] [facility] Referral ID Status Reason Start Date Expiration Date Visits Re quested Visits Authorized [id number] Closed 11/15/2024 11/15/2025 1 1 Reason for Visit * Imaging (Routine) - Closed Specialty Diagnoses / Procedures Referred By Mariano hernandez Referred To Contact Radiology Diagnoses Malignant neoplasm of anus, unspecified (CMS/HCC) Procedures PET CT Skull to Mid Thigh Initial Mariia Leavitt MD [address] [place] [address] HEMATOLOGY / [place] [address] [facility] Referral ID Status Reason Start Date Expiration Date Visits Re quested Visits Authorized [id number] Closed 11/15/2024 11/15/2025 1 1 Encounter Details Date Type Department Care Team (Latest Contact Info) Description 11/16/2024 8:36 AM EST Hospital Encounter [facility] PET Scan [address] [place] [address] Malignant neoplasm of anus, unspecified (CMS/HCC) Social History Tobacco Use Types Packs/Day Years Used Date Smoking Tobacco: Never Assessed Sex and Gender Information Value Date Recorded Sex Assigned at Male 11/15/2024 2:23 PM EST Gender Identity Male 11/15/2024 2:23 PM EST Sexual Orientation Not on file documented as of this encounter Plan of Treatment Not on file documented as of this encounter Procedures Procedure Name Priority Date/Time Associated Diagnosis Comments PET CT SKULL TO MID THIGH INITIAL Routine 11/16/2024 10:03 AM EST Malignant neoplasm of anus, unspecified (CMS/HCC) documented in this encounter Results * PET CT Skull to Mid [...] Signed Date: 11/17/2024 10:08 ET Workstation ID: [id number] Transcribed By: Self Edit Transcribed Date: 11/17/2024 [...] Signed Date: 11/17/2024 10:08 ET Workstation ID: [id number] Transcribed By: Self Edit Transcribed Date: 11/17/2024 06:32 ET Mariia Leavitt MD IMG NM PROCEDURES documented in this encounter Visit Diagnoses Diagnosis Malignant neoplasm of anus, unspecified (CMS/HCC) documented in this encounter Administered Medications Inactive Administered Medications - up to 3 most recent administrations Medication Order MAR Action Action Date Dose Rate Site F-18 FDG pet diag radio-isotope injection 11.8 millicurie 11.8 millicurie, intravenous, Once in imaging, Starting on Fri11/16/24 at 0902, For 1 dose Given 11/16/2024 9:02 AM EST 11.8 millicuries Right Antecubital documented in this encounter Orders Medications Ordered That Samir ht Not Have Been Administered Count Last Ordered Date First Ordered Date F-18 FDG pet diag radio-isot ope injection 11.8 millicurie 1 11/16/2024 documented in this encounter
--- OUTSIDE RECORDS SUMMARY | 2024-11-23 11:04 | XMS_ITS | Encounter Summary ---
Demographics Address [address] [place] [address] Home Phone Work Phone Preferred Language en Marital Status Single Sikhism Affiliation Unknown Race White Ethnic Group Not or Lati no Author Organization [employer] Address [address] [place] [address] Care Team Providers Care Instrument Engineer Name Role Phone Unavailable Primary Care Provider Unavailabl e Reason for Visit * Reason Onset Date Comments New Patient 08/22/2023 Encounter Details Date Type Department Care Team (Late st Contact Info) Description 08/22/2023 Telephone [facility] [address] [place], [place] [phone] Brian Ang MD [address] [place], [place] [phone] New Patient Social History Tobacco Use Types Packs/Day Years Used Date Smoking Tobacco: Never Assessed Sex and Gender Information Value Date Recorded Sex Assigned at Male 09/02/2022 10:16 AM EDT Legal Sex Male 10:16 AM EDT Gender Identity Not on file Sexual Orientation Not on file documented as of this encounter Miscellaneous Notes * Telephone Encounter - Dorcas Davis - 08/22/2023 10:06 AM EDT New Patients Par Dorcas Marin called to start process of becoming a New patient appt, pt did notanswer left voicemail to give a call at [phone]. documented in this encounter Plan of Treatment Not on file documented as of this encounter Visit Diagnoses Not on filedocumented in this encounter
[2024-11-23 11:28] VITALS: BP 106/54; PULSE 70; RESP 16; TEMP 36.6; O2SAT 96
--- NOTE | 2024-11-23 11:29 | P.OP_ITS ---
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 He understood the technique of the planned procedure as well as the risks, benefits, and alte rnatives He was brought to the operating room. He was placed in left lateral decubitus position under monitored anesthesia care. Examination of the anal orifice revealed this large mass presenting the anal cancer. This was noted on the anal verge. This was about 4 cm in widest dimension. I inserted the scope through the anal orifice and this was advanced with insufflation gently all the way to the cecum and the cecum was intubated. The cecum as identified by visualization of the ileocecal valve as well as the appendiceal orifice. The cecal mucosa was unremarkable. The scope was gradually withdrawn with careful examination of the entire colonic mucosa being done with scope withdrawal. The patient had good bowel prep so it was unlikely that any lesion may have been missed. There was note of scattered diverticulosis throughout the entire colon The rectum was reached. There were no lesions seen. We proceeded to continue to withdraw the scope. There was note of this lesion in the distal anoderm continues with the large renal mass. The scope was then withdrawn completely with desufflation The patient tolerated procedure well. There were no immediate complications. He will start treatment with chemotherapy and radiation next week.
[2024-11-23 11:43] VITALS: BP 118/69; PULSE 59; RESP 16; TEMP 36.4; O2SAT 99
== END 2024-11-23 13:10 | disposition home or self-care (01) ==
PROVIDERS: PCP Internal Medicine; Visit Provider Surgery
PROC: 0DJD8ZZ Inspection of Lower Intestinal Tract, Via Natural or Artificial Opening Endoscopic (ICD-10-PCS; CPT 45378; principal; 2024-11-23 11:00)
DX: C21.0 Malignant neoplasm of anus, unspecified (principal); K57.30 Diverticulosis of large intestine without perforation or abscess without bleeding; A63.0 Anogenital (venereal) warts; Z79.1 Long term (current) use of non-steroidal anti-inflammatories (NSAID); Z79.82 Long term (current) use of aspirin; Z79.899 Other long term (current) drug therapy; Z98.890 Other specified postprocedural states; Z87.891 Personal history of nicotine dependence
CPT/HCPCS: 45378

== ENCOUNTER → 2024-11-23 09:51 | Outpatient (BNV) | payer OTHER, SELFPAY | PROVIDERS: PCP Internal Medicine; Visit Provider Surgery | DX: C21.0 Malignant neoplasm of anus, unspecified (principal); K57.90 Diverticulosis of intestine, part unspecified, without perforation or abscess without bleeding | CPT/HCPCS: 45378 ==

== ENCOUNTER 2024-11-24 11:23 | Day surgery (SDC) | payer OTHER, SELFPAY ==
[2024-11-24] VITALS (18 sets, daily range): BP systolic 108–126; BP diastolic 61–72; PULSE 62–80; RESP 12–19; TEMP 36.1–36.7; O2SAT 95–100; BMI 30.3
--- NOTE | ~2024-11-24 | IR_ITS ---
CLINICAL HISTORY: Squamous cell carcinoma of the anus. The patient presents to interventional radiology for placement of a port for chemotherapy. PROCEDURES: 1. Real-time ultrasound-guided access into the right internal jugular vein after documentation of selected vessel patency, and permanent image storing in the patient records. 2. Placement of a 6.6 Monegasque single-lumen power port. CLINICIAN: Sony Henry PA-C MEDICATIONS: - Versed 1.5 mg, Fentanyl 75 mcg, Lidocaine 1% 10 mL SQ -Antibiotics: Ancef 2g -For additional details, please see nursing flowsheet. Complications: None. Estimated blood loss: <5 ml Specimens: None. Contrast: None. Fluoroscopy time: 1.7 min MODERATE SEDATION TIME: 23 min PROCEDURE NOTE: The procedure, risks, benefits, and alternatives were carefully explained to the patient and written informed consent was obtained. The patient was placed supine on the fluoroscopy table. A timeout was performed. The right neck and chest was prepped and draped in usual sterile fashion. Maximum barrier technique was utilized. Local anesthesia was administered to the access site with 1% lidocaine. Under ultrasound guidance, the right internal jugular vein was accessed with a 5 fr micropuncture set. A 0.035 in wire was advanced into the IVC. A peel-away sheath was advanced over the wire and into the SVC, and the wire was removed. Next, subcutaneous lidocaine was administered to the chest. The port pocket was created after the skin incision, utilizing blunt dissection. Using blunt dissection, a subcutaneous tunnel was created that connects from the port pocket to the venotomy site. Through the peel-away sheath, the 6.6 Monegasque port catheter was placed. The catheter position was verified with fluoroscopy to be at the superior vena cava/right atrial junction. The port was connected to the catheter and was placed in the pocket. The venotomy site was closed with a 3-0 Vicryl subcutaneous suture. The port incision site was closed with interrupted 3-0 Vicryl subcutaneous sutures and surgical glue. Prior to closing the skin, 1 g of Ancef solution was placed in the pocket. The port was tested, flushed, and packed with heparin per routine protocol. The patient tolerated the procedure well. The patient was stable after the procedure and was transferred to the PACU. The procedure was performed under moderate sedation and with a dedicated nurse with continuous monitoring of vital signs. A permanent image of the ultrasound the neck and fluoroscopic image of the chest was saved and sent to PACS. FINDINGS: 1. Patent right internal jugular vein 2. Placement of a 6.6 Monegasque single lumen power port. 3. Port flushes and aspirates very well with a 10 mL syringe. No pneumothorax. IR/IR us guide venous access IMPRESSION: Placement of a 6.6 Monegasque single-lumen power port. PLAN: - The patient will be discharged home when stable by sedation protocol. - Port may be used immediately. This procedure was performed by Sony Henry PA-C, and directly supervised by Dr. Daniels Electronically signed by: Ellis Daniels MD 12/08/2024 01:47 PM [facility]
--- NOTE | ~2024-11-24 | IR_ITS ---
CLINICAL HISTORY: Squamous cell carcinoma of the anus. The patient presents to interventional radiology for placement of a port for chemotherapy. PROCEDURES: 1. Real-time ultrasound-guided access into the right internal jugular vein after documentation of selected vessel patency, and permanent image storing in the patient records. 2. Placement of a 6.6 Mozambican single-lumen power port. CLINICIAN: Sony Henry PA-C MEDICATIONS: - Versed 1.5 mg, Fentanyl 75 mcg, Lidocaine 1% 10 mL SQ -Antibiotics: Ancef 2g -For additional details, please see nursing flowsheet. Complications: None. Estimated blood loss: <5 ml Specimens: None. Contrast: None. Fluoroscopy time: 1.7 min MODERATE SEDATION TIME: 23 min PROCEDURE NOTE: The procedure, risks, benefits, and alternatives were carefully explained to the patient and written informed consent was obtained. The patient was placed supine on the fluoroscopy table. A timeout was performed. The right neck and chest was prepped and draped in usual sterile fashion. Maximum barrier technique was utilized. Local anesthesia was administered to the access site with 1% lidocaine. Under ultrasound guidance, the right internal jugular vein was accessed with a 5 fr micropuncture set. A 0.035 in wire was advanced into the IVC. A peel-away sheath was advanced over the wire and into the SVC, and the wire was removed. Next, subcutaneous lidocaine was administered to the chest. The port pocket was created after the skin incision, utilizing blunt dissection. Using blunt dissection, a subcutaneous tunnel was created that connects from the port pocket to the venotomy site. Through the peel-away sheath, the 6.6 Mozambican port catheter was placed. The catheter position was verified with fluoroscopy to be at the superior vena cava/right atrial junction. The port was connected to the catheter and was placed in the pocket. The venotomy site was closed with a 3-0 Vicryl subcutaneous suture. The port incision site was closed with interrupted 3-0 Vicryl subcutaneous sutures and surgical glue. Prior to closing the skin, 1 g of Ancef solution was placed in the pocket. The port was tested, flushed, and packed with heparin per routine protocol. The patient tolerated the procedure well. The patient was stable after the procedure and was transferred to the PACU. The procedure was performed under moderate sedation and with a dedicated nurse with continuous monitoring of vital signs. A permanent image of the ultrasound the neck and fluoroscopic image of the chest was saved and sent to PACS. FINDINGS: 1. Patent right internal jugular vein 2. Placement of a 6.6 Mozambican single lumen power port. 3. Port flushes and aspirates very well with a 10 mL syringe. No pneumothorax. IR/IR cvc insert tunnel w prt/manager interface IMPRESSION: Placement of a 6.6 Mozambican single-lumen power port. PLAN: - The patient will be discharged home when stable by sedation protocol. - Port may be used immediately. This procedure was performed by Sony Henry PA-C, and directly supervised by Dr. Daniels Electronically signed by: Ellis Daniels MD 12/08/2024 01:[address] [facility]
[2024-11-24] MEDS: Acetaminophen 1,000 MG/100 ML PIGGYBACK 400 MG IV (12:52)
--- NOTE | 2024-11-24 13:04 | MHC.SHP ---
Pre-Procedural Eval Section A - 24 Hr Update-Section A only Date of Service: 11/24/24 Section B - Complete if H&P > 30 days Chief Complaint: malignant neoplasm of anus Details of Present Illness: 54 y/o man with SCC of the anus and poor iv access. Relevant Family History (Specify if Yes): No Relevant Social History: None Present Medications: see Short Stay Collaborative assessment Medical History: Significant History History of Previous Operations: Relevant previous surgery/procedure and date(s) Allergies: Allergies Allergy/AdvReac Type Severity Reaction Status Date / Time No Known Allergies Allergy Verified 11/24/24 11:56 Review of Systems Sugical H&P ROS: Negative: Constitution, Cardiovascular and Respiratory Exam Surgical H&P Exam: Normal: Heart, Normal: Lungs, Normal: Skin and Normal: Neurological Plan 54 y/o man with SCC of the anus -Port Time Spent With Patient Time: Total time managing care of this patient today ____ minutes.
--- OUTSIDE RECORDS SUMMARY | 2024-11-24 13:11 | XMS_ITS | Encounter Summary ---
Demographics Address [address] [place] [address] Home Phone Work Phone Preferred Language en Marital Status Single Advent Affiliation Unknown Race White Ethnic Group Not or Lati no Author Organization [email or web address] Address [address] [place] [address] Care Team Providers Care Carbon Plant Grinder Name Role Phone Unavailable Primary Care Provider Unavailabl e Reason for Visit * Reason Onset Date Comments New Patient 08/22/2023 Encounter Details Date Type Department Care Team (Late st Contact Info) Description 08/22/2023 Telephone [facility] [address] [place], [place] [phone] Brian Ang MD [address] [place], [place] [phone] New Patient Social History Tobacco Use Types [...] left voicemail to give a call at [phone]. documented in this encounter Plan of Treatment Not on file documented as of this encounter Visit Diagnoses Not on filedocumented in this encounter
--- OUTSIDE RECORDS SUMMARY | 2024-11-24 13:11 | XMS_ITS | Clinical Summary ---
Author Organization [facility] Address [address] [place] [address] Phone Care Team Providers Care Trust Accounts Supervisor Name Role Phone Unavailable Primary Care Provider Unavailabl e Encounters Date Type Department Care Team Description 11/16/2024 8:36 AM EST Hospital Encounter PET Scan [address] [place] [address] Malignant neoplasm of anus, unspecified [...] Signed Date: 11/17/2024 10:08 ET Workstation ID: [id number] Transcribed By: Self Edit Transcribed Date: 11/17/2024 [...] Signed Date: 11/17/2024 10:08 ET Workstation ID: [id number] Transcribed By: Self Edit Transcribed Date: 11/17/2024 06:32 ET Mariia BOSWELL NM PROCEDURES from Last 3 Months
--- OUTSIDE RECORDS SUMMARY | 2024-11-24 13:11 | XMS_ITS | Encounter Summary ---
Author Organization [facility] Address [address] [place] [address] Care Team Providers Care Pickle Sorter Name Role Phone Unavailable Primary Care Provider Unavailabl e Reason for Referral * Imaging (Routine) - Closed Specialty Diagnoses / Procedures Referred By Mariano hernandez Referred To Contact Radiology Diagnoses Malignant neoplasm of anus, unspecified (CMS/HCC) Procedures PET CT Skull to Mid Thigh Initial Mariia Leavitt MD [address] [place] [address] HEMATOLOGY / [place] [address] [facility] Referral ID Status Reason Start Date Expiration Date Visits Re quested Visits Authorized [id number] Closed 11/15/2024 11/15/2025 1 1 Reason for Visit * Imaging (Routine) - Closed Specialty Diagnoses / Procedures Referred By Mariano hernandez Referred To Contact Radiology Diagnoses Malignant neoplasm of anus, unspecified (CMS/HCC) Procedures PET CT Skull to Mid Thigh Initial Mariia Leavitt MD [address] [place] [address] HEMATOLOGY / [place] [address] [facility] Referral ID Status Reason Start Date Expiration Date Visits Re quested Visits Authorized [id number] Closed 11/15/2024 11/15/2025 1 1 Encounter Details Date Type Department Care Team (Latest Contact Info) Description 11/16/2024 8:36 AM EST Hospital Encounter [facility] PET Scan [address] [place] [address] Malignant neoplasm of anus, unspecified [...] Signed Date: 11/17/2024 10:08 ET Workstation ID: [id number] Transcribed By: Self Edit Transcribed Date: 11/17/2024 [...] Signed Date: 11/17/2024 10:08 ET Workstation ID: [id number] Transcribed By: Self Edit Transcribed Date: 11/17/2024 [...]
--- OUTSIDE RECORDS SUMMARY | 2024-11-24 13:11 | XMS_ITS | Clinical Summary ---
Demographics Address [address] [place] [address] Home Phone Work Phone Preferred Language en Marital Status Single Quaker Affiliation Unknown Race White Ethnic Group Not or Lati no Author Organization [employer] Address [address] [place] [address] Care Team Providers Care Oilfield Plant And Field Operator Name Role Phone Unavailable Primary Care Provider [...]
[2024-11-24] MEDS: ceFAZolin Sodium/Dextrose,Iso 2 GM/50 ML PIGGYBACK IV (13:13)
[2024-11-24] MEDS: fentaNYL citrate/PF 100 MCG/2 ML VIAL 50 MCG IVPUSH (13:27)
[2024-11-24] MEDS: Midazolam HCl 5 MG/ML VIAL 1 MG IVPUSH (13:27)
[2024-11-24] MEDS: fentaNYL citrate/PF 100 MCG/2 ML VIAL 25 MCG IVPUSH ×2 (13:34→13:44)
[2024-11-24] MEDS: Midazolam HCl 5 MG/ML VIAL IVPUSH ×2 (13:34→13:43)
== END 2024-11-24 14:44 | disposition home or self-care (01) ==
PROVIDERS: Student in an Organized Health Care Education/Training Program; PCP Internal Medicine; Visit Provider Internal Medicine
DX: Z45.2 Encounter for adjustment and management of vascular access device (principal); C21.0 Malignant neoplasm of anus, unspecified
CPT/HCPCS: 36561; 76937; 99152; J0131; J0690; J1642; J1644; J2003; J2250; J2704; J3010

== ENCOUNTER → 2024-11-24 12:57 | Outpatient (BNV) | payer OTHER, SELFPAY | PROVIDERS: PCP Internal Medicine; Visit Provider Physician Assistant Surgical | DX: C44.520 Squamous cell carcinoma of anal skin (principal) | CPT/HCPCS: 36561; 76937 ==

== ENCOUNTER 2024-11-26 19:50 | Emergency (ER) | payer OTHER, SELFPAY ==
--- NOTE | ~2024-11-26 | US_ITS ---
CLINICAL HISTORY: erythema and swelling around varicose vein thigh Venous duplex ultrasound left lower extremity Comparison: None Findings: The visualized deep veins are fully compressible with normal Doppler color flow and spectral tracings. A thrombosed superficial vein is visualized at the lateral aspect of the left thigh. No popliteal cyst. IMPRESSION: 1. Negative for left lower extremity deep vein thrombosis. 2. Thrombosed superficial vein identified at the lateral aspect of the left thigh. This document has been electronically signed by: Mitul Major MD on 11/26/2024 21:01:28
--- NOTE | 2024-11-26 19:59 | ED_ITS ---
HPI - General Adult General Chief complaint: General Medical Stated complaint: internal bleeding lft leg vericose vein? Time Seen by Provider: 11/27/24 03:28 Source: patient Mode of arrival: ambulatory Limitations: no limitations History of Present Illness ED Provider: Dr. Tanja Sevilla HPI narrative: Patient comes to the emergency room complaining of erythema over the varicose veins. Patient states that he has noted varicose veins in the past, patient isn't on blood thinners. Patient states that he is concerned this time that on his left thigh, the skin overlying the varicose veins is a little bit red, tender to palpation and a bit red. Patient complaining of subjective fever. Patient denies any lower extremity pain or swelling. Related Data Home Medications ?Medication ?Instructions ?Recorded ?Confirmed aspirin 81 mg tablet,delayed 81 mg PO DAILY 11/10/23 11/05/24 release (Adult Low Dose Aspirin) ibuprofen 800 mg tablet 800 mg PO Q6H 01/29/24 11/05/24 Previous Rx's ?Medication ?Instructions ?Recorded docusate sodium 100 mg capsule 100 mg PO BID #60 caps 04/06/24 (Colace) oxycodone 5 mg tablet 5 mg PO Q8H PRN Pain (Scale Score 11/18/24 7-10) #30 tabs sodium,potassium,mag sulfates 17.5 See Rx Instructions PO .COMPLEX 11/18/24 gram-3.13 gram-1.6 gram oral soln #354 mL (Suprep Bowel Prep Kit) cephalexin 500 mg capsule 500 mg PO BID #13 caps 11/27/24 doxycycline monohydrate 100 mg 100 mg PO BID #13 caps 11/27/24 capsule ibuprofen 600 mg tablet 600 mg PO Q8H PRN fever or pain 11/27/24 #30 tabs Allergies Allergy/AdvReac Type Severity Reaction Status Date / Time No Known Allergies Allergy Verified 11/26/24 20:04 Review of Systems 2 Review of Systems: Constitutional : No Weight loss, No Fever, No Chills, No Night Sweats, No Fatigue, No Malaise ENT/Mouth : No Hearing loss, No Ear Pain, No Nasal Congestion, No Sinus Pain, No Hoarseness, No sore throat, No Rhinorrhea, No Swallowing Difficulty Eyes: No Eye Pain, No Swelling, No Redness, No Foreign Body, No Discharge, No Vision Changes Cardiovascular : No Chest Pain, No SOB, No Dyspnea on Exertion, No Orthopnea, No Edema, No Palpitations Respiratory : No Cough, No Sputum, No Wheezing, No Smoke Exposure, No Dyspnea Gastrointestinal : No Nausea, No Vomiting, No Diarrhea, No Constipation, No abdominal Pain, No Hematochezia, No Melena Genitourinary : no irregular bleeding, No Dysuria, No Urinary Frequency, No Hematuria, No Urinary Incontinence, No Urgency, No Flank Pain, No Urinary Flow Changes, No Hesitancy Musculoskeletal : No joint pain, No Myalgias, No Joint Swelling Skin : Complaining of redness and warm to touch skin over the left thigh, skin overlying the varicose vein Neuro : No Weakness, No Numbness, No Paresthesias, No Loss of Consciousness, No Dizziness, No Headache Psych : No Anxiety/Panic, No Depression, No SI/HI/AH/VH, No Social Issues, Heme/Lymph: No Bruising, No Bleeding,No Lymphadenopathy Endocrine : No Polyuria, No Polydipsia, No Temperature Intolerance PMFSH Past Medical History Medical History History of ETOH abuse Marijuana use Varices of other sites Hydrocele Anal cancer Condyloma acuminatum of anus History of drainage of abscess Genital warts Surgical History Hx of surgical biopsy (~09/17/24) Hx of surgical procedure (~07/02/24) Hx of excision of mass H/O tooth extraction History of surgery on lower extremity Family History Family History Other Substance use disorder Social History Social History Household Members: Significant Other Housing: Apartment Are you a primary director of health care marketing to a significant other at home: No Do you presently have visiting nurse or other home services: No Alcohol intake: current Alcohol intake frequency: does not drink Alcohol type: beer Comment: COUNTS CORRECT Patient Tobacco Use Status: Former Tobacco user Tobacco use type: Cigarette Years Smoked: 1 Smoked in Last 30 Days: No e-Cigarette/Vaping Use: Never Used Second Hand Smoke Exposure: No Use of substances other than those prescribed or required for medical reasons: Yes Substance Use Type: Marijuana Advance Directives: No Advance Directives Information Provided: Yes Do you have a plan to hurt others: No Plan service: No Current occupational status: employed 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 Oriented X3. No acute distress. Eyes: Pupils equal, round and reactive to light. ENT: Pharynx normal. Neck: Normal inspection. Neck supple. No lymph nodes noted. No crepitus CVS: Normal heart rate and rhythm. Pulses normal. Normal S1 and S2 Respiratory: No respiratory distress. Breath sounds normal. No Wheezing. No rales Abdomen: Soft and nontender. No rigidity. No distention. Skin: Skin warm and dry. Normal skin color. Normal skin turgor. Extremities: No lower extremity edema. No Lacerations. No Rash. Patient has chronic varicose veins. There is a bit of erythema on the skin over the varicose veins, slightly more tender to palpation than the varicose veins on the right leg. Neuro: Oriented X 3. No motor deficit. No sensory deficit. Moving all extremities. No slurred speech. CN 2 through 12 grossly intact Psych: calm, cooperative, normal affect Course Course Course Narrative: This is a rapid medical exam performed by Cecelia Katz NP: Additional HPI, ROS, PE not included below will be deferred to primary provider. Patient is a 54-year-old male diagnosed with anal CA on 11/05, had portocath placed on Fri, has not yet started treatment presenting to the ED with complaint of subjective fever, and redness/swelling to left thigh in the area of a varicose vein. Plan: labs, u/S Medical Decision Making Medical Decision Making MDM Narrative: My interpretation of labs: Patient's white blood cell count 12.8, likely reactive leukocytosis. No significant abnormality in patient's chemistry, INR 1.2 Ultrasound is negative for left lower extremity DVT, positive for thrombosed superficial veins in the lateral aspect of the left thigh Given patient's symptoms, patient was given here the 1st of of ibuprofen, cephalexin and doxycycline. Patient has a port in place. Patient has not started chemotherapy yet for rectal cancer I discussed with the patient that if he develops any fever while he is on chemotherapy regardless of symptoms, he needs to come to the emergency room. Patient agrees with plan. Differential Diagnosis Differential Diagnoses: The differential diagnosis associated with the presentation includes (Superficial thrombophlebitis, DVT, cellulitis) Admission/Observation Consideration of admission/observation: Escalation of care including admission/observation considered (Given patient's past medical history and symptoms, observation was considered) Lab Data MDM Lab Attestation statement: I reviewed the patient's lab results. 11/26/24 21:00 11/26/24 21:00 Labs: Lab Results 11/26/24 11/26/24 Range/Units 21:00 21:01 WBC 12.8 H (4.8-10.8) X10*3/uL RBC 4.05 L (4.60-5.80) X10*6/uL Hgb 12.0 L (14.0-18.0) g/dl Hct 35.6 L (42.0-52.0) % MCV 87.9 (80.0-98.0) fL MCH 29.6 (27.0-33.0) pg MCHC 33.7 (31.0-36.0) g/dl RDW 14.5 (11.0-16.0) % Plt Count 282 (160-400) X10*3/uL MPV 10.4 (9.4-12.4) fL Immature Gran % (Auto) 0.6 H (0.0-0.4) % Neut % (Auto) 78.9 H (45-73) % Lymph % (Auto) 11.5 L (20-40) % [place] % (Auto) 7.6 (2-11) % Eos % (Auto) 1.0 (0-4) % Baso % (Auto) 0.4 (0-2) % Lymph # (Auto) 1.5 (1.2-4.9) X10*3/uL [place] # (Auto) 1.0 (0.1-1.2) X10*3/uL Eos # (Auto) 0.1 (0.0-0.4) X10*3/uL Baso # (Auto) 0.1 (0.0-0.2) X10*3/uL Abs Immat Gran (auto) 0.08 H (0.00-0.03) X10*3/uL Absolute Neuts (auto) 10.1 H (2.0-8.3) x10*3/uL Absolute Nucleated RBC 0.000 (0.0-0.012) X10*3/uL Nucleated RBC % (auto) 0.0 (0.0-0.2) /100WBC PT 13.4 H (10.9-12.4) SEC INR 1.2 H (0.9-1.1) Sodium 138 (135-145) mmol/L Potassium 4.1 (3.3-5.1) mmol/L Chloride 103 (96-108) mmol/L Carbon Dioxide 25 (22-29) mmol/L Anion Gap 14 (12-20) BUN 14 (9-16) mg/dL Creatinine 0.69 (0.5-1.4) mg/dL Estim Creat Clear Calc 157.0 Estimated GFR > 60 Random Glucose 92 (60-115) mg/dL Lactic Acid 1.0 (0.5-2.0) mmol/L Calcium 9.3 (8.4-10.2) mg/dL Total Bilirubin 0.9 (0.0-1.0) mg/dL AST 24 (5-37) U/L ALT 10 (0-40) U/L Alkaline Phosphatase 72 (39-117) U/L Total Protein 8.4 H (6.5-8.0) g/dL Albumin 4.1 (3.5-5.0) g/dL Influenza Type A (PCR) NEGATIVE (Negative) Influenza Type B (PCR) NEGATIVE (Negative) RSV RNA Qual (PCR) NEGATIVE (Negative) SARS-CoV-2 RNA (RT-PCR) NEGATIVE (Negative) Independent Interpretation I performed an independent interpretation of an: Ultrasound Radiology Impression Discussion of test interpretation with radiology: I have reviewed the radiologist's reading. Radiologist Impression: Findings: The visualized deep veins are fully compressible with normal Doppler color flow and spectral tracings. A thrombosed superficial vein is visualized at the lateral aspect of the left thigh. No popliteal cyst. IMPRESSION: 1. Negative for left lower extremity deep vein thrombosis. 2. Thrombosed superficial vein identified at the lateral aspect of the left thigh. Critical Care Time Critical Care Time Critical Care Time: Yes Total Critical Care Time: 30 Attestation: I have personally provided critical care time. Time includes review of lab data, radiology results, discussion with consultants, and monitoring for potential decompensation. Intervention performed as documented. Discharge Plan Discharge Clinical Impression: Thrombophlebitis, Cellulitis Patient Disposition: Home, Self-Care Instructions: Cellulitis (ED), Superficial Thrombophlebitis (ED) Additional Instructions: Please follow-up with your primary care physician tomorrow. If you have any worsening or new symptoms, please return to the emergency room or call 911 Prescriptions: New doxycycline monohydrate 100 mg capsule 100 mg PO BID Qty: 13 0RF cephalexin 500 mg capsule 500 mg PO BID Qty: 13 0RF ibuprofen 600 mg tablet 600 mg PO Q8H PRN (Reason: fever or pain) Qty: 30 1RF No Action docusate sodium [Colace] 100 mg capsule 100 mg PO BID Qty: 60 2RF ibuprofen 800 mg tablet 800 mg PO Q6H oxycodone 5 mg Tablet 5 mg PO Q8H PRN (Reason: Pain (Scale Score 7-10)) Qty: 30 0RF Rx Instructions: Partial Fill upon patient request. aspirin [Adult Low Dose Aspirin] 81 mg tablet,delayed release (DR/EC) 81 mg PO DAILY sodium,potassium,mag sulfates [Suprep Bowel Prep Kit] 17.5-3.13-1.6 gram recon soln See Rx Instructions PO .COMPLEX Qty: 354 0RF Rx Instructions: DILUTE; drink full amount early evening before AND next morning at least 2 hr before procedure; follow w 960 mL water PO Print Language: Portuguese
[2024-11-26 20:00] VITALS: BP 149/82; PULSE 101; RESP 20; TEMP 37.3; O2SAT 98; BMI 30.3
[2024-11-26 21:09] LABS: MANUAL DIFF FLAG NO
[2024-11-26 21:15] LABS: INTERNATIONAL NORM RATIO 1.2 (0.9-1.1); Prothrombin Time 13.4 SEC (10.9-12.4)
[2024-11-26 21:20] LABS: Basophils Absolute Auto 0.1 X10*3/uL (0.0-0.2); Basophils Percent Auto 0.4 % (0-2); Eosinophils Absolute Auto 0.1 X10*3/uL (0.0-0.4); Hematocrit 35.6 % (42.0-52.0); Imm Gran Abs Auto 0.08 X10*3/uL (0.00-0.03); Imm Gran Pct Auto 0.6 % (0.0-0.4); Lymphocytes Absolute Auto 1.5 X10*3/uL (1.2-4.9); Lymphocytes Percent Auto 11.5 % (20-40); Mean Corpuscular HGB Conc 33.7 g/dl (31.0-36.0); Mean Corpuscular Hemoglobin 29.6 pg (27.0-33.0); Mean Corpuscular Volume 87.9 fL (80.0-98.0); Mean Platelet Volume 10.4 fL (9.4-12.4); Monocytes Percent Auto 7.6 % (2-11); Neutrophils Absolute Auto 10.1 x10*3/uL (2.0-8.3); Neutrophils Percent Auto 78.9 % (45-73); Platelet Count 282 X10*3/uL (160-400); Red Blood Count 4.05 X10*6/uL (4.60-5.80); Red Cell Distribution Width 14.5 % (11.0-16.0); White Blood Count 12.8 X10*3/uL (4.8-10.8)
[2024-11-26 21:42] LABS: Alanine Aminotransferase 10 U/L (0-40); Albumin Level 4.1 g/dL (3.5-5.0); Alkaline Phosphatase 72 U/L (39-117); Anion Gap 14 (12-20); Aspartate Amino Transferase 24 U/L (5-37); Bilirubin Total 0.9 mg/dL (0.0-1.0); Blood Urea Nitrogen 14 mg/dL (9-16); Calcium 9.3 mg/dL (8.4-10.2); Carbon Dioxide 25 mmol/L (22-29); Chloride 103 mmol/L (96-108); Estimated Glomerular Filt Rate > 60; Glucose Random 92 mg/dL (60-115); Potassium 4.1 mmol/L (3.3-5.1); Sodium 138 mmol/L (135-145); Total Protein 8.4 g/dL (6.5-8.0)
[2024-11-26 22:06] LABS: Influenza A PCR NEGATIVE (Negative); Influenza B PCR NEGATIVE (Negative); Resp Syncy Virus RNA Qual PCR NEGATIVE (Negative); SARS COV2 PCR INHOUSE NEGATIVE (Negative)
--- OUTSIDE RECORDS SUMMARY | 2024-11-26 22:24 | XMS_ITS | Encounter Summary ---
Author Organization [facility] Address [address] [place] [address] Care Team Providers Care Golf [employer] Head Former Name Role Phone Unavailable Primary Care Provider Unavailabl e Reason for Referral * Imaging (Routine) - Closed Specialty Diagnoses / Procedures Referred By Mariano hernandez Referred To Contact Radiology Diagnoses Malignant neoplasm of anus, unspecified (CMS/HCC) Procedures PET CT Skull to Mid Thigh Initial Mariia Leavitt MD [address] [place] [address] HEMATOLOGY / [place] [address] [facility] Referral ID Status Reason Start Date Expiration Date Visits Re quested Visits Authorized [id number] Closed 11/15/2024 11/15/2025 1 1 Reason for Visit * Imaging (Routine) - Closed Specialty Diagnoses / Procedures Referred By Mariano hernandez Referred To Contact Radiology Diagnoses Malignant neoplasm of anus, unspecified (CMS/HCC) Procedures PET CT Skull to Mid Thigh Initial Mariia Leavitt MD [address] [place] [address] HEMATOLOGY / [place] [address] [facility] Referral ID Status Reason Start Date Expiration Date Visits Re quested Visits Authorized [id number] Closed 11/15/2024 11/15/2025 1 1 Encounter Details Date Type Department Care Team (Latest Contact Info) Description 11/16/2024 8:36 AM EST - 11/16/2024 11:59 PM EST Hospital Encounter [facility] PET Scan [address] [place] [address] Malignant neoplasm of anus, unspecified (CMS/HCC) Discharge Disposition: Home or Self Care Social History Tobacco Use Types Packs/Day Years Used Date Smoking Tobacco: Never Assessed Sex and Gender Information Value Date Recorded Sex Assigned at Male 11/15/2024 2:23 PM EST Gender Identity Male 11/15/2024 2:23 PM EST Sexual Orientation Not on file documented as of this encounter Discharge Disposition Disposition Code Departure Means Destination Home or Self Care documented in this encounter Plan of Treatment [...] Signed Date: 11/17/2024 10:08 ET Workstation ID: [id number] Transcribed By: Self Edit Transcribed Date: 11/17/2024 [...] Signed Date: 11/17/2024 10:08 ET Workstation ID: [id number] Transcribed By: Self Edit Transcribed Date: 11/17/2024 [...]
--- OUTSIDE RECORDS SUMMARY | 2024-11-26 22:24 | XMS_ITS | Encounter Summary ---
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 documented in this encounter Plan of Treatment Not on file documented as of this encounter Visit Diagnoses Not on filedocumented in this encounter
--- OUTSIDE RECORDS SUMMARY | 2024-11-26 22:24 | XMS_ITS | Clinical Summary ---
Demographics Address 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
[2024-11-26 23:50] VITALS: BP 121/72; PULSE 81; RESP 18; TEMP 37.3; O2SAT 99
--- NOTE | 2024-11-27 02:05 | PC.NURSE ---
Pt continues to await primary provider eval, no change in physical assessment.
[2024-11-27 02:20] VITALS: BP 121/68; PULSE 89; RESP 18; TEMP 37.1; O2SAT 97
[2024-11-27] MEDS: Ibuprofen 600 MG TABLET PO (03:55)
[2024-11-27] MEDS: cephALEXin 500 MG CAPSULE PO (03:55)
[2024-11-27] MEDS: Doxycycline Monohydrate 100 MG CAPSULE PO (03:55)
[2024-11-27 03:57] VITALS: BP 121/68; PULSE 89; RESP 18; TEMP 37.1; O2SAT 97
== END 2024-11-27 03:57 | disposition home or self-care (01) ==
PROVIDERS: Registered Nurse Emergency; Emergency Provider Emergency Medicine; PCP Internal Medicine
DX: I80.2 Phlebitis and thrombophlebitis of other and unspecified deep vessels of lower extremities (principal); L03.116 Cellulitis of left lower limb; R60.0 Localized edema; R50.9 Fever, unspecified; Z79.899 Other long term (current) drug therapy; Z87.891 Personal history of nicotine dependence; Z03.818 Encounter for observation for suspected exposure to other biological agents ruled out
CPT/HCPCS: 0241U; 80053; 83605; 85025; 85610; 87040; 93971; 99284

== ENCOUNTER → 2024-11-26 20:01 | Outpatient (BNV) | payer OTHER, SELFPAY | PROVIDERS: PCP Internal Medicine; Visit Provider Radiology Diagnostic Radiology | DX: R22.42 Localized swelling, mass and lump, left lower limb (principal) | CPT/HCPCS: 93971 ==

== ENCOUNTER 2025-03-15 20:20 | Emergency (ER) | payer OTHER, SELFPAY ==
--- NOTE | ~2025-03-15 | US_ITS ---
CLINICAL HISTORY: pain, swelling, cancer patient ULTRASOUND BILATERAL LOWER EXTREMITY VENOUS DUPLEX STUDY COMPARISON: 11/26/2024. TECHNIQUE: Grayscale, spectral Doppler, and color flow analysis of the bilateral lower extremity venous system was performed. FINDINGS: There is no evidence of a deep venous thrombosis bilaterally. The bilateral common femoral, femoral, popliteal, and visualized deep calf veins are patent. Soft tissue edema is noted within portions of the bilateral lower extremities. IMPRESSION: 1. No evidence of a DVT. This document has been electronically signed by: David Jones M.D. on 03/16/2025 03:36:20
--- NOTE | 2025-03-15 20:32 | ED.GENADULT ---
HPI - General Adult General Chief complaint: General Medical Stated complaint: swollen right arm & legs Time Seen by Provider: 03/16/25 00:21 Source: patient Limitations: no limitations History of Present Illness ED Provider: Brissa Goldman PA-C HPI narrative: 54-year-old male with history of anal cancer, last radiation and chemotherapy treatment 4 wks ago, presenting with complaint of bilateral leg swelling since cessation of cancer txs. Denies chest pain, shortness of breath, orthopnea or unintentional weight gain. Denies overlying erythema of bilateral lower extremities, no fevers. Patient has no underlying kidney or liver dysfunction to his knowledge. Related Data Home Medications ?Medication ?Instructions ?Recorded ?Confirmed aspirin 81 mg tablet,delayed 81 mg PO DAILY 11/10/23 03/18/25 release (Adult Low Dose Aspirin) ibuprofen 800 mg tablet 800 mg PO Q6H 01/29/24 03/18/25 Previous Rx's ?Medication ?Instructions ?Recorded docusate sodium 100 mg capsule 100 mg PO BID #60 caps 04/06/24 (Colace) sodium,potassium,mag sulfates 17.5 See Rx Instructions PO .COMPLEX 11/18/24 gram-3.13 gram-1.6 gram oral soln #354 mL (Suprep Bowel Prep Kit) ibuprofen 600 mg tablet 600 mg PO Q8H PRN fever or pain 11/27/24 #30 tabs docusate sodium 100 mg capsule 100 mg PO DAILY #30 caps 12/31/24 (Laxa Basic) polyethylene glycol 3350 17 gram 17 g PO DAILY PRN Constipation #30 12/31/24 oral powder packet (Miralax) ea colchicine 0.6 mg capsule 0.6 mg PO BID #20 caps 02/14/25 oxycodone 5 mg tablet 5 mg PO Q8H PRN Severe Pain (Scale 03/23/25 Score 7-10) #30 tabs Allergies Allergy/AdvReac Type Severity Reaction Status Date / Time No Known Allergies Allergy Verified 03/18/25 13:26 Review of Systems Review of Systems: Yes all other systems are reviewed and are negative Constitutional: Constitutional: Denies fatigue and Denies fever(s) Cardiovascular: Cardiovascular: Denies chest pain, Reports pedal edema, Reports leg edema, Denies dyspnea, Denies dyspnea on exertion and Denies orthopnea Respiratory: Respiratory: Denies cough, Denies dyspnea and Denies dyspnea on exertion Musculoskeletal: Musculoskeletal: Denies arthralgias and Denies joint swelling Integumentary/Breasts: Skin/Breast: Denies erythema and Denies wounds Endocrine: Endocrine: Denies fatigue PMFSH Past Medical History Attestation statement: The following information was validated with the patient. Medical History History of ETOH abuse Marijuana use Varices of other sites Hydrocele Anal cancer Condyloma acuminatum of anus History of drainage of abscess Genital warts Surgical History Hx of surgical biopsy (~09/17/24) Hx of surgical procedure (~07/02/24) Hx of excision of mass H/O tooth extraction History of surgery on lower extremity Family History Family History Other Substance use disorder Social History Social History Household Members: Significant Other Housing: Apartment Are you a primary healthcare administration internship to a significant other at home: No Do you presently have visiting nurse or other home services: No Alcohol intake: current Alcohol intake frequency: does not drink Alcohol type: beer Comment: COUNTS CORRECT Patient Tobacco Use Status: Former Tobacco user Tobacco use type: Cigarette Years Smoked: 1 e-Cigarette/Vaping Use: Never Used Second Hand Smoke Exposure: No Substance Use Type: Marijuana Do you feel safe in your current relationship?: Yes Do you have thoughts of harming others: None Do you have a plan to hurt others: No Plan service: No Current occupational status: employed Current occupation: [employer] Sexual orientation: Straight/Heterosexual Gender identity: Male Cognitive needs: No Hearing needs: No Vision needs: Yes (reading glasses) Physical Exam ED Vital Signs: Vital Signs - 24 hr 03/15/25 20:33 03/15/25 23:31 03/16/25 01:49 Temperature 97.6 F 97.7 F 97.3 F Pulse Rate 84 64 68 Respiratory Rate 20 20 18 Blood Pressure 140/89 H 110/66 96/50 L Pulse Oximetry 98 100 96 Oxygen Delivery Method Room Air Room Air Room Air BMI result Body Mass Index 24.8 Const Other: Alert, appears older than stated age Orientation/consciousness: patient oriented x3 Resp Effort & Inspection: normal respiratory effort Cardio Other: Pitting edema noted bilaterally, the limbs are warm and well perfused Skin Other: Warm dry no rash Neuro General: patient oriented x3, gait normal, no focal motor deficits and CN's II-XI intact bilaterally Extrem Other: No erythema or warmth noted over bilateral lower extremities Psych Other: Cooperative Course Course Course Narrative: This is a rapid medical exam performed by Cecelia Katz NP: Additional HPI, ROS, PE not included below will be deferred to primary provider. Patient is a 54-year-old male with history of anal cancer, last radiation treatment 4 wks ago, presenting with complaint of bilateral leg swelling and right arm swelling. Right leg swollen for a few weeks, left leg and right arm today. States around one month ago he was treated with colchicine for gout of right ankle. Plan: labs to start Medical Decision Making Medical Decision Making MDM Narrative: 54-year-old male with history of anal cancer, last radiation and chemotherapy treatment 4 wks ago, presenting with complaint of bilateral leg swelling since cessation of cancer txs. Denies chest pain, shortness of breath, orthopnea or unintentional weight gain. Denies overlying erythema of bilateral lower extremities, no fevers. Patient has no underlying kidney or liver dysfunction to his knowledge. Problem: Recent cancer treatments History: Per patient I have considered the following differential diagnoses: Dependent edema, side-effect from chemotherapy, hepatic and/or renal dysfunction, cardiac dysfunction, DVT Plan: Screening labs including liver function we will be obtained from triage. I am ordering bilateral Doppler studies of the lower extremities. Do not feel this is underlying cardiac dysfunction given the patient is not overtly hypertensive he is not experiencing orthopnea, he denies chest pain or shortness of breath, he is not hypoxic. I have independently reviewed the following tests: Labs: No leukocytosis, not anemic, no electrolyte abnormality noted, LFTs are normal DVT BLE: FINDINGS: There is no evidence of a deep venous thrombosis bilaterally. The bilateral common femoral, femoral, popliteal, and visualized deep calf veins are patent. Soft tissue edema is noted within portions of the bilateral lower extremities. IMPRESSION: 1. No evidence of a DVT. Lab Data 03/15/25 20:43 03/15/25 20:43 Labs: Lab Results 03/15/25 Range/Units 20:43 WBC 6.4 (4.8-10.8) X10*3/uL RBC 3.47 L (4.60-5.80) X10*6/uL Hgb 11.1 L (14.0-18.0) g/dl Hct 33.1 L (42.0-52.0) % MCV 95.4 (80.0-98.0) fL MCH 32.0 (27.0-33.0) pg MCHC 33.5 (31.0-36.0) g/dl RDW 22.0 H (11.0-16.0) % Plt Count 196 (160-400) X10*3/uL MPV 9.9 (9.4-12.4) fL Immature Gran % (Auto) 0.8 H (0.0-0.4) % Neut % (Auto) 73.5 H (45-73) % Lymph % (Auto) 6.6 L (20-40) % [place] % (Auto) 14.6 H (2-11) % Eos % (Auto) 3.9 (0-4) % Baso % (Auto) 0.6 (0-2) % Lymph # (Auto) 0.4 L (1.2-4.9) X10*3/uL [place] # (Auto) 0.9 (0.1-1.2) X10*3/uL Eos # (Auto) 0.3 (0.0-0.4) X10*3/uL Baso # (Auto) 0.0 (0.0-0.2) X10*3/uL Abs Immat Gran (auto) 0.05 H (0.00-0.03) X10*3/uL Absolute Neuts (auto) 4.7 (2.0-8.3) x10*3/uL Absolute Nucleated RBC 0.000 (0.0-0.012) X10*3/uL Nucleated RBC % (auto) 0.0 (0.0-0.2) /100WBC PT 11.6 (10.9-12.4) SEC INR 1.0 (0.9-1.1) Sodium 141 (135-145) mmol/L Potassium 3.6 D (3.3-5.1) mmol/L Chloride 106 (96-108) mmol/L Carbon Dioxide 25 (22-29) mmol/L Anion Gap 14 (12-20) BUN 10 (9-16) mg/dL Creatinine 0.63 (0.5-1.4) mg/dL Estim Creat Clear Calc 179.7 Estimated GFR > 60 Random Glucose 90 (60-115) mg/dL Calcium 8.8 D (8.4-10.2) mg/dL Total Bilirubin 0.7 (0.0-1.0) mg/dL AST 28 (5-37) U/L ALT 26 (0-40) U/L Alkaline Phosphatase 72 (39-117) U/L Total Protein 6.5 (6.5-8.0) g/dL Albumin 3.8 (3.5-5.0) g/dL Discharge Plan Discharge Clinical Impression: Peripheral edema Patient Disposition: Home, Self-Care Instructions: Leg Edema (ED) Additional Instructions: All of your screening labs in particular your your liver and renal function were completely normal. The ultrasound of your lower extremities was negative for clot. Continue to follow up with your healthcare providers, including your oncologist, for further discussion about the peripheral edema you are experiencing.. The swelling you are experiencing may be secondary to the chemotherapy you received. Prescriptions: No Action docusate sodium [Colace] 100 mg capsule 100 mg PO BID Qty: 60 2RF ibuprofen 800 mg tablet 800 mg PO Q6H docusate sodium [Laxa Basic] 100 mg Capsule 100 mg PO DAILY Qty: 30 3RF polyethylene glycol 3350 [Miralax] 17 gram Powder In Packet 17 g PO DAILY PRN (Reason: Constipation) Qty: 30 3RF colchicine 0.6 mg Capsule 0.6 mg PO BID Qty: 20 0RF oxycodone 5 mg Tablet 5 mg PO Q8H PRN (Reason: Severe Pain (Scale Score 7-10)) Qty: 30 0RF Rx Instructions: Partial Fill upon patient request. ibuprofen 600 mg tablet 600 mg PO Q8H PRN (Reason: fever or pain) Qty: 30 1RF aspirin [Adult Low Dose Aspirin] 81 mg tablet,delayed release (DR/EC) 81 mg PO DAILY sodium,potassium,mag sulfates [Suprep Bowel Prep Kit] 17.5-3.13-1.6 gram recon soln See Rx Instructions PO .COMPLEX Qty: 354 0RF Rx Instructions: DILUTE; drink full amount early evening before AND next morning at least 2 hr before procedure; follow w 960 mL water PO Interventions: ED Discharge Assessment Last Done: 03/16/25 04:01 Discharge Date/Time: 03/16/25 04:02 Print Language: Persian
[2025-03-15 20:33] VITALS: BP 140/89; PULSE 84; RESP 20; TEMP 36.4; O2SAT 98; BMI 24.8
[2025-03-15 20:46] LABS: MANUAL DIFF FLAG NO
[2025-03-15 20:48] LABS: Basophils Percent Auto 0.6 % (0-2); Eosinophils Absolute Auto 0.3 X10*3/uL (0.0-0.4); Eosinophils Percent Auto 3.9 % (0-4); Hematocrit 33.1 % (42.0-52.0); Hemoglobin 11.1 g/dl (14.0-18.0); Imm Gran Abs Auto 0.05 X10*3/uL (0.00-0.03); Imm Gran Pct Auto 0.8 % (0.0-0.4); Lymphocytes Absolute Auto 0.4 X10*3/uL (1.2-4.9); Lymphocytes Percent Auto 6.6 % (20-40); Mean Corpuscular HGB Conc 33.5 g/dl (31.0-36.0); Mean Corpuscular Volume 95.4 fL (80.0-98.0); Mean Platelet Volume 9.9 fL (9.4-12.4); Monocytes Absolute Auto 0.9 X10*3/uL (0.1-1.2); Monocytes Percent Auto 14.6 % (2-11); Neutrophils Absolute Auto 4.7 x10*3/uL (2.0-8.3); Neutrophils Percent Auto 73.5 % (45-73); Platelet Count 196 X10*3/uL (160-400); Red Blood Count 3.47 X10*6/uL (4.60-5.80); White Blood Count 6.4 X10*3/uL (4.8-10.8)
[2025-03-15 20:55] LABS: Prothrombin Time 11.6 SEC (10.9-12.4)
[2025-03-15 21:04] LABS: Alanine Aminotransferase 26 U/L (0-40); Albumin Level 3.8 g/dL (3.5-5.0); Alkaline Phosphatase 72 U/L (39-117); Anion Gap 14 (12-20); Aspartate Amino Transferase 28 U/L (5-37); Bilirubin Total 0.7 mg/dL (0.0-1.0); Blood Urea Nitrogen 10 mg/dL (9-16); Calcium 8.8 mg/dL (8.4-10.2); Carbon Dioxide 25 mmol/L (22-29); Chloride 106 mmol/L (96-108); Creatinine Clr Calc Pharmacy 179.7; Estimated Glomerular Filt Rate > 60; Glucose Random 90 mg/dL (60-115); Potassium 3.6 mmol/L (3.3-5.1); Sodium 141 mmol/L (135-145); Total Protein 6.5 g/dL (6.5-8.0)
[2025-03-15 23:31] VITALS: BP 110/66; PULSE 64; RESP 20; TEMP 36.5; O2SAT 100
[2025-03-16 01:49] VITALS: BP 96/50; PULSE 68; RESP 18; TEMP 36.3; O2SAT 96
[2025-03-16 04:01] VITALS: BP 107/52; PULSE 69; RESP 16; TEMP 36.6; O2SAT 97
== END 2025-03-16 04:02 | disposition home or self-care (01) ==
PROVIDERS: Registered Nurse Emergency; Emergency Provider Emergency Medicine; PCP Internal Medicine
DX: R60.0 Localized edema (principal); Z87.891 Personal history of nicotine dependence; Z79.899 Other long term (current) drug therapy
CPT/HCPCS: 36415; 80053; 85025; 85610; 93970; 99284

== ENCOUNTER → 2025-03-16 01:00 | Outpatient (BNV) | payer OTHER, SELFPAY | PROVIDERS: Emergency Provider Emergency Medicine; PCP Internal Medicine; Visit Provider Radiology Diagnostic Radiology | DX: M79.661 Pain in right lower leg (principal); M79.662 Pain in left lower leg; R22.43 Localized swelling, mass and lump, lower limb, bilateral | CPT/HCPCS: 93970 ==

== ENCOUNTER 2025-06-23 15:06 | Outpatient (AMB) | payer OTHER, SELFPAY ==
--- OUTSIDE RECORDS SUMMARY | 2025-06-23 15:09 | XMS_ITS | Clinical Summary ---
Author Organization [facility] Address [address] [place] [address] Phone Care Team Providers Care Marble Finisher Name Role Phone Unavailable Primary Care Provider Unavailabl e Social History Tobacco Use Types Packs/Day Years Used Date Smoking Tobacco: Never Assessed Sex and Gender Information Value Date Recorded Sex Assigned at Male 11/15/2024 2:23 PM EST Legal Sex Male 11:23 AM EST Gender Identity Male 11/15/2024 2:23 PM EST Sexual Orientation Not on file Plan of Treatment Health Maintenance Due Date Last Done Comments DTaP,Tdap,and Td Vaccines (1 - Tdap) 1990 Hepatitis B Vaccines (1 of 3 - 19+ 3-dose series) 1990 Pneumococcal Vaccine: 50+ Ye ars (1 of 1 - PCV) 2021 Zoster Vaccines (1 of 2) 2021 COVID-19 Vaccine ( - 2023-2 5 season) 2024 Depression Screening 11/03/2024 Cholesterol Screening (Lipid Panel) 11/15/2024 Colorectal Cancer Screening: Colonoscopy 11/15/2024 HIV Screening 11/15/2024 Hepatitis C Screening 11/15/2024 Social Influencers of Health Screening 11/15/2024 Influenza Vaccine (#1) 2025 HIB Vaccines Aged Out No longer eligi [...] patient's age to complete this topic Meningococcal B Vaccine Aged Out No l onger eligible based on patient's age to complete this topic RSV Immunization Patients Un jairo 20 months Aged Out No longer eligible b ased on patient's age to complete this topic Varicella Vaccines Aged Out No longer eligible based on patient's age to complete this topic Insurance [facility]
--- OUTSIDE RECORDS SUMMARY | 2025-06-23 15:09 | XMS_ITS | Encounter Summary ---
Demographics Address [address] [place] [address] Home Phone Work Phone Preferred Language en Marital Status Single Holiness Affiliation Unknown Race White Ethnic Group Unknown Author Organization [employer] Address [address] [place] [address] Care Team Providers Care Perforator Name Role Phone Unavailable Primary Care Provider Unavailabl e Reason for Visit * Reason Onset Date Comments New Patient 08/22/2023 Encounter Details Date Type Department Care Team (Late st Contact Info) Description 08/22/2023 Telephone [facility] [address], [place] [phone] Brian Ang MD [address] [place], [place] [phone] New Patient Social History Tobacco Use Types [...] left voicemail to give a call at [phone]. documented in this encounter Plan of Treatment Not on file documented as of this encounter Visit Diagnoses Not on filedocumented in this encounter
--- OUTSIDE RECORDS SUMMARY | 2025-06-23 15:09 | XMS_ITS | Clinical Summary ---
Demographics Address [address] [place] [address] Mobile Phone Preferred Language Luxembourgish Marital Status Single Nondenominational Affiliation Unknown Race White Ethnic Group Not or Lati no Author Organization [facility] Address [address] [place] [phone] Phone Care Team Providers Care Geotechnical Engineer Name Role Phone Pcp, Unknown Primary Care Provider Unavailabl e Allergies No known active allergies Medications aspirin 81 mg chewable tablet Take 81 mg by mouth daily. Active docusate sodium (COLACE) 50 MG capsule Take 50 mg by mouth 2 (two) times a day. Active doxycycline hyclate (DORYX) 100 MG tablet Take 100 mg by mouth 2 (two) times a day. Active cephalexin (KEFLEX) 250 MG capsule Take 500 mg by mouth 4 (four) times a day. Active oxyCODONE 5 MG immediate release tablet Take 5 mg by mouth every 4 (four) hours as needed. Active hydrocortisone 2.5 % ointment Apply topically 3 (three) times a day. Prn itching 28.35 g 3 Active Additional Information Patient not taking.Reported on 02/07/2025 Active Problems Problem Noted Date Diagnosed Date Anal carcinoma 11/25/2024 Cancer Staging:Clinical stage from 11/30/2024:Stage IIA(cT2, cN0, cM0) - Signed by Bradly Lange MD on 11/30/2024 Encounters Date Type Department Care Team Description 05/26/2025 10:09 AM EDT - 05/26/2025 11:59 PM EDT Hospital Encounter [facility], Pet/Ct - [address] [address] Bradly Lange MD Discharge Disposition: Home or Self Care 04/07/2025 Telephone [facility] Rad Onc [address] [place] [id number] Bradly Lange MD from Last 3 Months Social History Tobacco Use Types Packs/Day Years Used Date Smoking Tobacco: Never Smokeless Tobacco: Never Alcohol Use Standard Drinks/Week Comments Yes 0 (1 standard drink = 0.6 oz pur e alcohol) occassional Education Answer Date Recorded Are you interested in more education? Not on evon e 03/01/2023 Are you concerned about learning? Not on file 03/01/2023 No 03/01/2023 No 03/01/2023 Digital Access Answer Date Recorded No 04/01/2023 No 04/01/2023 Reliable internet access at home? Not on file 04/01/2023 Device with a working camera? Not on file Intimate Partner Violence Answer Date R ecorded Are you denied basic needs s uch as food, clothing, or medical care? No 01/18/2023 In the past 12 months have y ou been in a relationship with a person who hurts, threatens, or tries to control you? No 01/18/2023 Are you denied basic needs s uch as food, clothing, or medical care? No 01/18/2023 In the past 12 months have y ou been in a relationship with a person who hurts, threatens, or tries to control you? No 01/18/2023 Sex and Gender Information Value Date Recorded Sex Assigned at Male 03/28/2021 6:43 PM EDT Legal Sex Male 6:33 PM EDT Gender Identity Male 03/28/2021 6:43 PM EDT Sexual Orientation Not on file Last Filed Vital Signs Vital Sign Reading Time Taken Comments Blood Pressure 138/86 01/24/2025 3:30 PM EDT Pulse 60 01/24/2025 3:30 PM EDT Temperature 36.7 C (98.1 F) 01/17/2025 1:28 PM EDT Respiratory Rate 16 01/17/2025 1:28 PM EDT Oxygen Saturation 99% 01/24/2025 3:30 PM EDT Inhaled Oxygen Concentration - - Weight 101.7 kg (224 lb 3.2 oz) 02/07/2025 1:33 PM EDT Height 185.4 cm (6' 1 ) 01/10/2025 1:29 PM EDT Body Mass Index 29.58 01/10/2025 1:29 PM EDT Plan of Treatment Health Maintenance Due Date Last Done Comments Adult Td,Tdap Booster 1971 LIPID PANEL 1971 DEPRESSION SCREENING 1983 HEPATITIS C SCREENING 1989 HIV ONE-TIME SCREENING (18-6 5 YEARS) 1989 PNEUMOCOCCAL VACCINES (50+ y ears) (1 of 2 - PCV) 1990 ZOSTER VACCINES (1 of 2) 1990 SCREENING FOR DIABETES 2006 COLOGUARD 2016 COLONOSCOPY 2016 COLORECTAL CANCER SCREENING 2016 FIT TEST 2016 FOBT 2016 SIGMOIDOSCOPY 2016 VIRTUAL COLONOSCOPY 2016 COVID-19 VACCINE (2023-2 5 season) 2024 SMOKING STATUS SCREENING (On ce After 26 Yrs) Completed 11/30/2024 HEPATITIS A VACCINES Aged Out No long er eligible based on patient's age to complete this topic HIB VACCINES Aged Out No longer eligi ble based on patient's age to complete this topic MENINGOCOCCAL VACCINES (ACWY) Aged Out No longer eligible based on patient's age to complete this topic MENINGOCOCCAL VACCINES (B) Aged Out N o longer eligible based on patient's age to complete this topic Medical Devices Not on file Procedures Procedure Name Priority Date/Time Associated Diagnosis Comments NM PET CT SKULL BASE TO MID THIGHS Routine 05/26/2025 11:52 AM EDT Anal carcinoma from Last 3 Months Results * NM PET CT Skull Base to Mid Thighs (05/26/2025 11:52 AM EDT) Anatomical Region Laterality Modality Positron Emissio n Tomography (PET) 05/26/2025 5:10 PM EDT Impressions 05/26/2025 5:52 PM EDT Marked interval in improvement of size and FDG activity of known anal malignancy and bilateral condylomatous masses. Residual FDG activity on the right side of the anus associated with SUV max of 4.3. Narrative 05/26/2025 5:52 PM EDT NM PET CT SKULL BASE TO MID THIGHS INDICATION: * Anal carcinoma, monitor. Additional history per EMR: -11/23/2024: Colonoscopy -Examination of the anal orifice revealed a large mass noted at the anal verge measuring about 4 cm in widest dimension. -Radiation therapy from 12/27/2024-02/10/2025 TECHNIQUE: 12.7 mCi F-18 FDG was injected. Approximately 60 minutes later, tomographic images of the body from skull base to proximal thigh were acquired with low dose attenuation correction CT. Images were reviewed in axial, coronal, and sagittal projections. The patient's blood glucose at the time of imaging was 86 mg/dl. PET images were obtained and processed using very low dose CT for attenuation correction and localization purposes only. No diagnostic CT images were obtained as part of this examination. Although incidental CT findings may be identified, this examination is not designed to provide diagnostic quality CT evaluation, and is not a substitute for diagnostic CT imaging. COMPARISON: PET/CT on November 17, 2024 at [facility] FINDINGS: DEVICES/LINES: Right chest Port-A-Cath. NECK: Similar focal area of FDG activity in the inferior left thyroid lobe (4:49), with SUV max of 3.5, previously reported SUV max of 4.8. CHEST: No FDG avid pulmonary nodules or lymphadenopathy. Bilateral gynecomastia. ABDOMEN AND PELVIS: -Marked interval decrease in size of the anal mass, with residual soft tissue density on the right side of the anus that extends up to 6.3 cm AP and with 1.6 cm in thickness (3:173), and associated with local abnormal FDG activity with SUV max of 4.3 (4:173). Prior reported SUV max of 16.3. -Improvement of the skin thickening at the level of bilateral groins, at the location of the prior history of condylomatous masses, with interval resolution of abnormal FDG activity. -Interval decrease in size of previously seen FDG avid bilateral inguinal lymph nodes, now measuring 0.7 cm in short axis and with resolution of the associated abnormal FDG activity (3:164). -Cholelithiasis. Colonic diverticula. MUSCULOSKELETAL: No abnormal FDG activity. Multiple varicosities at the level of bilateral thighs. Procedure Note Candido Neumann MD - 05/26/[address] SKULL BASE TO MID THIGHS INDICATION: * Anal carcinoma, monitor. Additional history per EMR: -11/23/2024: Colonoscopy -Examination of the anal orifice revealed a largemass noted at the anal verge measuring about 4 cm in widest dimension. -Radiation therapy from 12/27/2024-02/10/2025 TECHNIQUE: 12.7 mCi F-18 FDG was injected. Approximately 60 minutes later,tomographic images of the body from skull base to proximal thigh wereacquired with low dose attenuation correction CT. Images were reviewed inaxial, coronal, and sagittal projections. The patient's blood glucose atthe time of imaging was 86 mg/dl. PET images were obtained and processed using very low dose CT forattenuation correction and localization purposes only. No diagnostic CTimages were obtained as part of this examination. Although incidental CT findings may be identified, this examination is notdesigned to provide diagnostic quality CT evaluation, and is not asubstitute for diagnostic CT imaging. COMPARISON: PET/CT on November 17, 2024 at [facility] FINDINGS: DEVICES/LINES: Right chest Port-A-Cath. NECK: Similar focal area of FDG activity in the inferior left thyroid lobe(4:49), with SUV max of 3.5, previously reported SUV max of 4.8. CHEST: No FDG avid pulmonary nodules or lymphadenopathy. Bilateral gynecomastia. ABDOMEN AND PELVIS: -Marked interval decrease in size of the anal mass, with residual softtissue density on the right side of the anus that extends up to 6.3 cm APand with 1.6 cm in thickness (3:173), and associated with local abnormalFDG activity with SUV max of 4.3 (4:173). Prior reported SUV max of16.3. -Improvement of the skin thickening at the level of bilateral groins, atthe location of the prior history of condylomatous masses, with intervalresolution of abnormal FDG activity. -Interval decrease in size of previously seen FDG avid bilateral inguinallymph nodes, now measuring 0.7 cm in short axis and with resolution of theassociated abnormal FDG activity (3:164). -Cholelithiasis. Colonic diverticula. MUSCULOSKELETAL: No abnormal FDG activity. Multiple varicosities at the level of bilateral thighs. IMPRESSION: Marked interval in improvement of size and FDG activity of known analmalignancy and bilateral condylomatous masses. Residual FDG activity onthe right side of the anus associated with SUV max of 4.3. Bradly Lange MD IM NM PET Final Result from Last 3 Months Insurance * Guarantor: HaydenGolden padilla Account Type Relation to Patient Date of Phone Billing Address Personal/Family Self [address] [place], [place] [phone] [place] [address] ACO * Guarantor: [place], Golden Account Type Relation to Patient Date of Phone Billing Address Personal/Family Self [address] [place], [place] [phone] [place] [address] ACO * Guarantor: [place], Golden Account Type Relation to Patient Date of Phone Billing Address Personal/Family Self [address] [place], [place] [phone] [place] [address] ACO * Guarantor: [place], Golden Account Type Relation to Patient Date of Phone Billing Address Personal/Family Self [address] [place], [place] [phone] [place] [address] ACO * Guarantor: [place], Golden Account Type Relation to Patient Date of Phone Billing Address Personal/Family Self [address] [place], [place] [phone] [place] [address] ACO * Guarantor: [place], Golden Account Type Relation to Patient Date of Phone Billing Address Personal/Family Self [address] [place], [place] [phone] [place] [address] ACO * Guarantor: [place], Golden Account Type Relation to Patient Date of Phone Billing Address Personal/Family Self [address] [place] [address] [facility] ACO * Guarantor: HaydenMartint Account Type Relation to Patient Date of Phone Billing Address Personal/Family Self [address] [place], [place] [phone] [place] [address] ACO * Guarantor: Martin Blaket Account Type Relation to Patient Date of Phone Billing Address Personal/Family Self [address] [place] [address] [facility] ACO Care Teams Geotechnical Engineer Relationship Specialty Start Date End Date Pcp, Unknown PCP - General 01/18/23 Additional Source Comments The information contained in this document represents components of the legal health record. It is not the complete legal health record.[facility]
--- NOTE | 2025-06-23 15:15 | A.OFFPC_ITS ---
Vital Signs 06/23/25 15:16 Height 6 ft 1 in Weight 225 lb 6 oz BMI 29.7 BP 112/62 Blood Pressure Location Lt brachial Position Sitting Respiration 18 Pulse 54 Pulse Source Pulse Oximeter Temp 97.3 F Temp Source Temporal Artery Scan Pulse Oximetry (%) 99 Oxygen Delivery Method Room Air Intake Visit Reasons: 6 mo follow up PHQ-9 needed. Director Industrial Relations Required: No Accompanied by: Self / Same As Patient Allergies No Known Allergies Allergy (Verified 06/23/25 15:18) Tobacco use date assessed: 06/23/25 Dental Screening Dental Screen Date: 06/23/25 Did you have a dental visit in the last 12 months?: No Did you have a dental problem in the last 6 months where you did not have access to dental care?: No Was dental information given to patient?: No [facility] Medical History (Updated 06/23/25 @ 16:00 by Dominic Barry MD) Encounter for colonoscopy due to history of colon cancer (11/23/24) History of ETOH abuse Marijuana use Varices of other sites Hydrocele Anal cancer Condyloma acuminatum of anus History of drainage of abscess Genital warts Surgical History Hx of surgical biopsy (~09/17/24) Hx of surgical procedure (~07/02/24) Hx of excision of mass H/O tooth extraction History of surgery on lower extremity Family History Other Substance use disorder Social History Household Members: Significant Other Housing: Apartment Are you a primary child care education coordinator to a significant other at home: No Do you presently have visiting nurse or other home services: No Alcohol intake: current Alcohol intake frequency: does not drink Alcohol type: beer Comment: COUNTS CORRECT Patient Tobacco Use Status: Former Tobacco user Tobacco use type: Cigarette Years Smoked: 1 e-Cigarette/Vaping Use: Never Used Second Hand Smoke Exposure: No Substance Use Type: Marijuana service: No Current occupational status: employed Current occupation: [employer] Sexual orientation: Straight/Heterosexual Gender identity: Male Cognitive needs: No Hearing needs: No Vision needs: Yes (reading glasses) Questionnaire PHQ-9 Over the last 2 weeks, how often have you been bothered by any of the following problems? 1. Little interest or pleasure in doing things: not at all 2. Feeling down, depressed, or hopeless: not at all 3. Trouble falling or staying asleep, or sleeping too much: not at all 4. Feeling tired or having little energy: not at all 5. Poor appetite or overeating: not at all 6. Feeling bad about yourself - or that you are a failure or have let yourself or your family down: not at all 7. Trouble concentrating on things, such as reading the newspaper or watching television: not at all 8. Moving or speaking so slowly that other people could have noticed. Or the opposite - being so fidgety or restless that you have been moving around a lot more than usual: not at all 9. Thoughts that you would be better off or of hurting yourself in some way: not at all Total score: 0 Source: Developed by Drs. Akbar Plummer, Solange Pollock, Joel Briggs and colleagues, with an educational leonides from [employer]. Thrive Questionnaire Date Thrive assessed: 06/23/25 I am a: Patient What is your living situation today?: I have a steady place to live Within the past 12 months, did the food you bought not last and you didn't have the money to get more?: Often true Within the past 12 months, did you worry whether your food would run out before you got money to buy more?: Never true Do you have trouble paying for medicines?: No Do you have trouble getting transportation to medical appointments?: No Do you have trouble paying your heating and electricity bill?: No Do you have trouble taking care of your child, family member or friend?: No Do you have trouble with day-to-day activities such as bathing, preparing meals, shopping, managing finances, etc.?: No Are you currently unemployed and looking for a job?: No Are you interested in more education?: No Please select the resources that you would like help with: None Currently or been in a relationship where the following occur: No concerns reported THRIVE Score: 1 AUDIT C Alcohol Use Questionnaire (AUDIT-C) 1. How often do you have a drink containing alcohol?: 2-3 times a week 2. How many drinks containing alcohol do you have on a typical day when you are drinking?: 3 or 4 3. How often do you have six or more drinks on one occasion?: Monthly Total Score: 6 RIK-7 AMB Questionnaire RIK-7 Date RIK - 7 assessed: 06/23/25 Feeling nervous, anxious, or on edge: 0 = Not at all Not being able to stop or control worryin = Not at all Worrying too much about different things: 0 = Not at all Trouble relaxin = Not at all Being so restless that it is hard to sit still: 0 = Not at all Becoming easily annoyed or irritable: 0 = Not at all Feeling afraid as if something awful might happen: 0 = Not at all Total RIK-7 score (0-4 normal; 5-9 mild; 10-14 moderate; 15-21 severe): 0 Source: Developed by Drs. Akbar Plummer, Solange Pollock, Joel Briggs and colleagues, with an educational leonides from [employer]. Physical exam (Primary Care) Vital Signs: Last Vital Signs Temp 97.3 F 06/23/25 15:16 Pulse 54 06/23/25 15:16 Resp 18 06/23/25 15:16 BP 112/62 06/23/25 15:16 Pulse Ox 99 06/23/25 15:16 Oxygen Delivery Method Room Air 06/23/25 15:16 BMI result Body Mass Index 29.7 Tobacco/Smoking Status: Tobacco use Status Tobacco use date assessed 06/23/25 06/23/25 15:27 Patient Tobacco Use Status Former Tobacco user 06/23/25 15:17 Tobacco use type Cigarette 06/23/25 15:17 e-Cigarette/Vaping Use Never Used 06/23/25 15:17 PHQ-9: PHQ-9 Score PHQ-9: Total score 0 06/23/25 15:27 Thrive Assessment: Date of Thrive Assessment Date Thrive assessed 06/23/25 06/23/25 15:27 Currently or been in a relationship where the following occur: No concerns reported Coding Level of Care Code Est Pt Level 4 (68075) Complex EM visit Add On G2211 Diagnoses Anal cancer C21.0 Assessment & Plan Assessment & Plan (1) Anal cancer: Code(s): C21.0 - Malignant neoplasm of anus, unspecified Category: Medical Plan: History of Present Illness - The patient is a 54-year-old male presenting with a follow-up on anal cancer treatment and management. - The patient was diagnosed with anal cancer, initially identified during surgical excision attempts, which was exacerbated following multiple surgeries. - He underwent chemotherapy and radiation therapy, with a recent PET scan conducted three weeks ago, pending results. - A colonoscopy was performed to rule out further spread of the cancer. - The patient has a history of HPV infection and condylomas, identified prior to the cancer diagnosis. - Post-radiation, the patient developed lymphedema, with minor swelling currently managed by a therapist. - Preventative care includes a lipid panel to be done during the next blood work session. Social History Review of Systems - General: Denies any current pain or health concerns. - Cardiovascular: Denies any chest pain or palpitations. - Musculoskeletal: Reports minor swelling in legs due to lymphedema. Physical Exam General: Cooperative and healthy appearing Nutritional Appearance: Well nourished Orientation/consciousness: Patient oriented x3 Limitations: No limitations Head: Normal to inspection General: Appearance normal, both eyes and all related structures Neck: Normal visual inspection Chest: Normal palpation of entire chest wall Respiratory: Normal respiratory effort Neurology: Patient oriented x3 Results - Imaging: Recent PET scan conducted three weeks ago, results pending. - Procedure: Colonoscopy performed to rule out further spread of cancer. Plan 1. Anal Cancer - Continue monitoring with oncologist, awaiting PET scan results. - Follow-up colonoscopy was performed to ensure no further spread. 2. Lymphedema - Managed with therapy, minor swelling noted, continue current management. 3. Human Papillomavirus (Hpv) Infection - History of HPV infection, continue monitoring for any new lesions. 4. Condyloma - Continue monitoring for recurrence or new lesions. 5. Preventative Care: Lipid Panel - Lipid panel to be conducted during next blood work session. Discussion Notes During the visit, we discussed the ongoing management of the patient's anal cancer, including the recent PET scan and the importance of follow-up with the oncologist. We also reviewed the patient's lymphedema management and the need for a lipid panel during the next blood work session. The patient was advised to continue monitoring for any new lesions related to HPV infection and condyloma. Patient Instructions - Follow up with your oncologist for PET scan results. - Continue current therapy for lymphedema management. - Have a lipid panel done during your next blood work session. - Monitor for any new lesions related to HPV infection and condyloma.
[2025-06-23 15:16] VITALS: BP 112/62; PULSE 54; RESP 18; TEMP 36.3; O2SAT 99; BMI 29.7
== END 2025-06-23 16:32 | disposition home or self-care (01) ==
LOC: HO.HMCH 15:07
PROVIDERS: PCP Internal Medicine; Visit Provider Internal Medicine
DX: C21.0 Malignant neoplasm of anus, unspecified (principal)

== ENCOUNTER → 2025-06-23 15:06 | Outpatient (BNVA) | payer OTHER, SELFPAY | PROVIDERS: PCP Internal Medicine; Visit Provider Internal Medicine | DX: C21.0 Malignant neoplasm of anus, unspecified (principal); I89.0 Lymphedema, not elsewhere classified; A63.0 Anogenital (venereal) warts | CPT/HCPCS: 99212 ==

== ENCOUNTER 2025-07-08 09:00 | Outpatient (RCR) | payer OTHER, SELFPAY | END 2025-10-18 12:34 | disposition home or self-care (01) | LOC: HO.OT 09:00 | PROVIDERS: PCP Internal Medicine; Visit Provider Nurse Practitioner Family | DX: I89.0 Lymphedema, not elsewhere classified (principal) | CPT/HCPCS: 97110; 97140; 97165; 97535 ==

== ENCOUNTER 2025-08-10 09:03 | Outpatient (AMB) | payer OTHER, SELFPAY ==
--- NOTE | 2025-08-10 09:10 | MHC.OFFVIS ---
Intake Visit Reasons: venereal warts Intake Note: Patient is present for venereal warts Urology Rx:none Blood Thinners: aspirin Lithographer Apprentice Required: No Accompanied by: Self / Same As Patient Allergies No Known Allergies Allergy (Verified 08/10/25 09:11) HPI Comments Details: Golden is a pleasant male. He is a patient of . Seen for the following urologic conditions - scrotal abscess - extensive HPV warts Underwent assessment with general surgery found to have anal cancer secondary to his condyloma throughout his perineal area Completed chemotherapy with radiation through [facility] with Dr. Lange On examination today his extensive perineal w have resolved to a large degree. The condyloma on the dependent portion of the scrotum also has had bystander effect from the radiation and has responded well. There are areas of condyloma in his groin area and on the shaft of the penis however these are of minimal concern to Golden. I did discuss the risks of resection in a radiated field with impaired healing. At this point in time we will review in six-month for reassessment. [facility] Medical History (Updated 07/11/25 @ 14:45 by Mariia Leavitt MD) Encounter for colonoscopy due to history of colon cancer (11/23/24) History of ETOH abuse Marijuana use Varices of other sites Hydrocele Anal cancer Condyloma acuminatum of anus History of drainage of abscess Genital warts Surgical History Hx of surgical biopsy (~09/17/24) Hx of surgical procedure (~07/02/24) Hx of excision of mass H/O tooth extraction History of surgery on lower extremity Family History Other Substance use disorder Social History Household Members: Significant Other Housing: Apartment Are you a primary acute care certified nursing assistant to a significant other at home: No Do you presently have visiting nurse or other home services: No Alcohol intake: current Alcohol intake frequency: does not drink Alcohol type: beer Comment: COUNTS CORRECT Patient Tobacco Use Status: Former Tobacco user Tobacco use type: Cigarette Years Smoked: 1 e-Cigarette/Vaping Use: Never Used Second Hand Smoke Exposure: No Substance Use Type: Marijuana service: No Current occupational status: employed 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 Sexual orientation: Straight/Heterosexual Gender identity: Male Cognitive needs: No Hearing needs: No Vision needs: Yes (reading glasses) Review of Systems Const Denies chills and Denies fever(s) Card Reports no additional complaints and Denies syncope Resp Denies cough GI Denies abdominal pain and Denies heartburn Reports as per HPI and Denies change in libido Neuro Denies syncope Psych Denies change in libido Endo Denies change in libido Physical Exam Const General: cooperative, healthy appearing, comfortable and no acute distress Orientation/consciousness: patient oriented x3 HEENT Face and sinus: Yes normal facial exam Mouth: moist mucous membranes Neck Neck: Yes normal visual inspection, Yes full ROM and Yes trachea midline Chest Chest palpation & inspection: normal inspection of the chest Resp Effort & Inspection: normal respiratory effort, able to speak in complete sentences and no respiratory distress GI Inspection: Yes normal to inspection Back/Spine/Pelvis Cervical Spine: normal cervical lordosis Thoracic/Lumbar Spine: thoracic and lumbar spine normal to inspection Skin General skin exam: no rashes or lesions noted Neuro General: patient oriented x3, gait normal, tone normal and moves all extremities Extrem General: Yes normal to inspection and Yes capillary refill normal Assessment & Plan Assessment & Plan (1) Genital warts: Code(s): A63.0 - Anogenital (venereal) warts Category: Medical Plan Six-month follow-up Patient Instructions: This note is constructed using voice recognition software. While every effort has been made to ensure accuracy interactive media marketing specialist errors may have been included. Imaging studies, laboratory and physical exam results were discussed and reviewed in detail. No major barriers to patient understanding were identified. An opportunity to ask questions regarding the treatment plan was provided. All questions were answered. The patient expressed understanding and agreement with the above treatment plan. The patient is aware they should contact our office by phone for worsening of their current condition or the appearance of new urologic symptoms. Compliance is encouraged with any medications and followup testing that is ordered. It is a privilege to participate in the urologic care of your patient. If you have any questions or concerns regarding treatment for the above conditions, or other urologic issues, please do not hesitate to contact me. The office telephone contact is [phone]. Sincerely, Dr Rodger Larios MD, [facility] - Urology Compassionate Specialist Care for the Genitourinary System Coding Level of Care Code Est Pt Level 3 (81157) Complex EM visit Add On G2211 Diagnoses Genital warts A63.0
== END 2025-08-10 09:52 | disposition home or self-care (01) ==
LOC: HO.HUSH 09:04
PROVIDERS: PCP Internal Medicine; Visit Provider Urology
DX: A63.0 Anogenital (venereal) warts (principal)
CPT/HCPCS: 99213

== ENCOUNTER → 2025-08-10 09:03 | Outpatient (BNVA) | payer OTHER, SELFPAY | PROVIDERS: PCP Internal Medicine; Visit Provider Urology | DX: A63.0 Anogenital (venereal) warts (principal) | CPT/HCPCS: 99212 ==

== ENCOUNTER 2025-08-17 10:47 | Outpatient (AMB) | payer OTHER, SELFPAY ==
[2025-08-17 10:52] VITALS: BP 111/54; PULSE 63; BMI 29.3
--- NOTE | 2025-08-17 10:52 | A.OFFVIS_ITS ---
Vital Signs 08/17/25 10:52 Height 6 ft 1 in Weight 222 lb 6 oz BMI 29.3 BP 111/54 L Blood Pressure Location Rt brachial Position Sitting Pulse 63 Intake Visit Reasons: follow up anal lesion Intake Note: This patient presents for an assessment for anal cancer. Pt c/o; no complaints at this time. 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 He underwent chemotherapy and radiation and completed these last March 2025. He says he is doing very well. Denies any significant pain in the anus. He says he feels ?great?. He says he tolerated treatment well. He does not feel any lump anymore in the anus. [facility] Medical History Encounter for colonoscopy due to history of colon cancer (11/23/24) History of ETOH abuse Marijuana use Varices of other sites Hydrocele Anal cancer Condyloma acuminatum of anus History of drainage of abscess Genital warts Surgical History Hx of surgical biopsy (~09/17/24) Hx of surgical procedure (~07/02/24) Hx of excision of mass H/O tooth extraction History of surgery on lower extremity Family History Other Substance use disorder Social History Household Members: Significant Other Housing: Apartment Are you a primary home care and home health aides teacher to a significant other at home: No Do you presently have visiting nurse or other home services: No Alcohol intake: current Alcohol intake frequency: does not drink Alcohol type: beer Comment: COUNTS CORRECT Patient Tobacco Use Status: Former Tobacco user Tobacco use type: Cigarette Years Smoked: 1 e-Cigarette/Vaping Use: Never Used Second Hand Smoke Exposure: No Substance Use Type: Marijuana service: No Current occupational status: employed Current occupation: [employer] Sexual orientation: Straight/Heterosexual Gender identity: Male Cognitive needs: No Hearing needs: No Vision needs: Yes (reading glasses) Review of Systems Const Denies chills and Denies fever(s) Card Denies chest pain, Denies dyspnea and Denies dyspnea on exertion Resp Denies cough, Denies dyspnea and Denies dyspnea on exertion GI Denies hematochezia and Denies change in bowel habits Denies hematuria and Denies difficulty urinating Musc Denies back pain and Denies limited range of motion Neuro Denies focal weakness and Denies convulsions Psych Denies depression and Denies mood swings Physical Exam Vital Signs: Last Vital Signs Pulse 63 08/17/25 10:52 BP 111/54 L 08/17/25 10:52 BMI result Body Mass Index 29.3 Const General: no acute distress and well developed Resp Effort & Inspection: normal respiratory effort Cardio Rate: regular rate GI Other: Rectal exam shows that the anal mass has resolved completely. There were note of some induration changes of the perianal skin. There is no bleeding, fissure, or ulceration Assessment & Plan Assessment & Plan (1) Anal cancer: Code(s): C21.0 - Malignant neoplasm of anus, unspecified Category: Medical Plan: Status post chemotherapy and radiation. He has had good response to treatment. I do not see any residual lesion. He feels well overall and denies any pain or bleeding I will see him again in about 6 months in the office. I will do an anoscopy at that time. Coding Level of Care Code Est Pt Level 3 (50699) Diagnoses Anal cancer C21.0
--- OUTSIDE RECORDS SUMMARY | 2025-08-17 13:03 | XMS_ITS | Clinical Summary ---
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 Rad Onc [address] [place] [address] Bradly Lange MD 05/26/2025 10:09 AM EDT - 05/26/2025 11:59 PM EDT Hospital Encounter [facility], Pet/Ct - [address] [address] Bradly Lange MD Discharge Disposition: Home or Self Care from Last 3 Months Social History Tobacco [...] FOBT 2016 SIGMOIDOSCOPY 2016 VIRTUAL COLONOSCOPY 2016 INFLUENZA VACCINE (#1) 2025 COVID-19 VACCINE ( - 2024-2 6 season) 2025 RSV VACCINE (1 - 1-dose 75+ series) 2046 SMOKING STATUS SCREENING (On ce After 26 [...] COMPARISON: PET/CT on November 17, 2024 at [facility] FINDINGS: DEVICES/LINES: Right chest Port-A-Cath. NECK: [...] Procedure Note Candido Neumann MD - 05/26/[address] SKULL BASE TO MID THIGHS [...] COMPARISON: PET/CT on November 17, 2024 at [facility] FINDINGS: DEVICES/LINES: Right chest Port-A-Cath. NECK: [...] SUV max of 4.3. Bradly Lange MD [facility] PET Final Result from Last 3 Months Insurance * Guarantor: Martin Balket Account Type Relation to Patient Date of Phone Billing Address Personal/Family Self [address] [place], [place] [phone] [place] [address] ACO * Guarantor: HaydenAlexisGolden Account Type Relation to Patient Date of Phone Billing Address Personal/Family Self [address] [place], [place] [phone] [place] [address] ACO * Guarantor: [place] Account Type Relation to Patient Date of Phone Billing Address Personal/Family Self [address] [place], [place] [phone] [place] [address] ACO * Guarantor: [place], Golden Account Type Relation to Patient Date of Phone Billing Address Personal/Family Self [address] [place], [place] [phone] [place] [address] ACO * Guarantor: [employer] [place], Golden Account Type Relation to Patient Date of Phone Billing Address Personal/Family Self [address] [place], [place] [phone] [place] [address] ACO Member Subscriber Plan / Payer (Ef fective 2020-Present) Name:Martin Blaket Relation to Subscriber:Self Name:[place] Payer ID:[id number] Group ID:[id number] Type:Medicaid Address: [place] [id number] * Guarantor: Hayden Golden Account Type Relation to Patient Date of Phone Billing Address Personal/Family Self [address] [place], [place] [phone] [place] [address] ACO * Guarantor: [place] Golden Account Type Relation to Patient Date of Phone Billing Address Personal/Family Self [address] [place] [address] [facility] ACO * Guarantor: HaydenMartint Account Type Relation to Patient Date of Phone Billing Address Personal/Family Self [address] [place] [address] [facility] ACO * Guarantor: Golden Blake Account Type Relation to Patient Date of Phone Billing Address Personal/Family Self [address] [place], [place] [phone] [place] [address] ACO Care Teams Construction Pit Worker Relationship Specialty Start Date End Date Pcp, Unknown PCP - General 01/18/23 Additional Source Comments The information contained in this document represents components of the legal health record. It is not the complete legal health record.[facility]
--- OUTSIDE RECORDS SUMMARY | 2025-08-17 13:03 | XMS_ITS | Clinical Summary ---
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 Name Role Phone Unavailable Primary Care Provider [...] Health Maintenance Due Date Last Done Comments Colorectal Cancer Screening: Colonoscopy 1970 DTaP,Tdap,and Td Vaccines (1 - Tdap) 1990 Hepatitis B Vaccines (1 of 3 - 19+ 3-dose series) 1990 Pneumococcal Vaccine: 50+ Ye ars (1 of 1 - PCV) 2021 Zoster Vaccines (1 of 2) 2021 Depression Screening 11/03/2024 Cholesterol Screening (Lipid Panel) 11/15/2024 HIV Screening 11/15/2024 Hepatitis C Screening 11/15/2024 Social Influencers of Health Screening 11/15/2024 COVID-19 Vaccine (1 - 2023-2 5 season) 2025 Influenza Vaccine (#1) 2025 RSV Immunization Adult Patie nts (1 - 1-dose 75+ series) 2046 HIB [...] patient's age to complete this topic Insurance [facility] PLAN
== END 2025-08-17 11:10 | disposition home or self-care (01) ==
LOC: HO.HGS 10:48
PROVIDERS: PCP Internal Medicine; Visit Provider Surgery
DX: C21.0 Malignant neoplasm of anus, unspecified (principal)
CPT/HCPCS: 99213

== ENCOUNTER → 2025-08-17 10:47 | Outpatient (BNVA) | payer OTHER, SELFPAY | PROVIDERS: PCP Internal Medicine; Visit Provider Surgery | DX: C21.0 Malignant neoplasm of anus, unspecified (principal) | CPT/HCPCS: 99212 ==